=== PATIENT | male | born 1950 | race Caucasian/White ===

== ENCOUNTER 2023-06-24 10:23 | Outpatient (OUT) | payer MEDICARE, OTHER, SELFPAY ==
[2023-06-24 11:25] LABS: Alanine Aminotransferase 30 U/L (16-63); Albumin Globulin Ratio 1.1; Albumin Level 3.9 g/dL (3.4-5.0); Alkaline Phosphatase 59 U/L (46-116); Anion Gap 12.7; Aspartate Amino Transferase 19 U/L (15-37); BUN Creatinine Ratio 19.1; Bilirubin Total 0.6 mg/dL (0.2-1.0); Calcium 8.8 mg/dL (8.5-10.1); Chloride 103 mmol/L (98-107); Chol HDL Ratio 3.4; Cholesterol 160 mg/dL (<=200); Estimated GFR (African America >60 (>=60); Estimated GFR (Non-African Ame >60 (>=60); Globulin 3.4 g/dL; Glucose 176 mg/dL (74-106); HDL Cholesterol 47 mg/dL (40-60); LDL Cholesterol Calculated 102.6 mg/dL; Potassium 4.7 mmol/L (3.5-5.1); Sodium 141 mmol/L (136-145); Total Protein 7.3 g/dL (6.4-8.2); Triglycerides 52 mg/dL (<=150); VLDL CHOLESTEROL 10.4 mg/dL
== END 2023-06-24 10:24 | disposition home or self-care (01) ==
LOC: LAB 10:28
PROVIDERS: PCP Family Medicine; Visit Provider Family Medicine
DX: E78.2 Mixed hyperlipidemia (principal)
CPT/HCPCS: 36415; 80053; 80061

== ENCOUNTER 2023-07-21 20:53 | Outpatient (OUT) | payer MEDICARE, OTHER, SELFPAY | END 2023-07-21 20:54 | disposition home or self-care (01) | LOC: SLEEP 20:53 | PROVIDERS: PCP Family Medicine; Visit Provider Family Medicine | DX: G47.33 Obstructive sleep apnea (adult) (pediatric) (principal) | CPT/HCPCS: 95810 ==

== ENCOUNTER 2023-08-05 19:48 | Outpatient (OUT) | payer MEDICARE, OTHER, SELFPAY | END 2023-08-05 19:49 | disposition home or self-care (01) | LOC: SLEEP 19:49 | PROVIDERS: PCP Family Medicine; Visit Provider Family Medicine | DX: G47.33 Obstructive sleep apnea (adult) (pediatric) (principal) | CPT/HCPCS: 95811 ==

== ENCOUNTER 2024-01-26 10:07 | Outpatient (OUT) | payer MEDICARE, OTHER, SELFPAY ==
[2024-01-26 10:44] LABS: Estimated Average Glucose 174 mg/dL; Glycohemoglobin A1C 7.7 % (4.5-6.2)
[2024-01-26 11:25] LABS: Prostate Specific Antigen Scrn 0.53 ng/mL (<=4.00)
== END 2024-01-26 10:08 | disposition home or self-care (01) ==
LOC: LAB 10:08
PROVIDERS: PCP Family Medicine; Visit Provider Family Medicine
DX: Z12.5 Encounter for screening for malignant neoplasm of prostate (principal); E11.65 Type 2 diabetes mellitus with hyperglycemia
CPT/HCPCS: 36415; 83036; G0103

== ENCOUNTER 2024-05-27 10:28 | Outpatient (OUT) | payer MEDICARE, OTHER, SELFPAY ==
--- OUTSIDE RECORDS SUMMARY | 2024-05-27 10:33 | XMS_ITS | CCD ---
Author Organization [facility] Care Team Providers Care Commercial Loan Manager Name Role Phone DAVID CASTILLO Admitting Unavailable DAVID CASTILLO Attending Unavailable PATELLORRAINE Primary Care Unavailable PATEL ., DR LORRAINE Ervin Admitting Unavailable PATEL ., DR LORRAINE Ervin Attending Unavailable PATEL ., DR LORRAINE Ervin Primary Care Unavailable PATEL ., DR LORRAINE Ervin Consulting Unavailable PATEL ., DR LORRAINE Ervin Primary Care Unavailable STEPHEN, DAVID Admitting Unavailable STEPHEN, DAVID Attending Unavailable DAVID MITCHELL Consulting Unavailable ESTER MCCRAY Consulting Unavailable PATEL ., DR LORRAINE Ervin Admitting Unavailable PATEL ., DR LORRAINE Ervin Attending Unavailable PATEL ., DR LORRAINE Ervin Primary Care Unavailable PATEL ., DR LORRAINE Ervin Admitting Unavailable PATEL ., DR LORRAINE Ervin Attending Unavailable PATEL ., DR LORRAINE Ervin Primary Care Unavailable PATEL ., DR LORRAINE Ervin Consulting Unavailable PATEL ., DR LORRAINE Ervin Admitting Unavailable PATEL ., DR LORRAINE Ervin Attending Unavailable PATEL ., DR LORRAINE Ervin Primary Care Unavailable PATEL ., DR LORRAINE Ervin Consulting Unavailable Sandra Archer Unavailable MARIA ANTONIA SHARP Attending Unavailable Medications Current Medications Medication Drug Class(es) Dates Sig (Normalized) Sig (Original) Aspir-81 (12 sources) Aspir-81 Active aspirin 81 mg oral tablet (1 source) Platelet Aggregation Inhibitor, Nonsteroidal Anti-inflammatory Drug Start: 01-15-2024 take 81 mg by mouth once daily Aspirin Active 81 MG PO Daily January 15, 2024 1:00am atenolol 100 mg oral tablet (14 sources) beta-Adrenergic Wander Start: 01-06-2024 End: 01-06-2024 take 100 mg by mouth once daily Atenolol Active 100 MG PO Daily January 06, 2024 1:56pm take 1 tablet by joseph th every twenty-four hours Atenolol 100 MG 1 tablet Orally Once a day for 90 days Active fluticasone propionate 0.05 mg/actuat metered dose nasal spray (13 sources) Corticosteroid Start: 01-15-2024 Fluticasone Pr opionate Active 1 SPRAY INTRANASAL Daily January 15, 2024 1:00am take 1 spray(s) nasal route once daily Fluticasone Propionate 50 MCG/ACT 1 spray in each nostril Nasally Once a day for 90 days Active take 1 spray(s) nasal route once daily Fluticasone Propionate 50 MCG/ACT 1 spray in each nostril Nasally Once a day for 90 days Active FreeStyle Michael 2 [place] - (12 sources) Start: 03-31-2023 FreeStyle Libr e 2 [place] - as directed March, Active FreeStyle Michael 2 Sensor - (5 sources) FreeStyle Michael 2 Sensor - USE DIRECTED for 28 Active FreeStyle Michael Sensor (7 sources) Start: 03-31-2023 FreeStyle Libr e Sensor March, Active glipiZIDE 5 mg oral tablet (14 sources) Sulfonylurea Start: 01-26-2024 take 5 mg by mouth twice daily Glipizide Active 5 MG PO Twice daily January 26, 2024 9:33am Start: 01-15-2024 End: 01-26-2024 take 5 mg by mouth once daily Glipizide Discontinued 5 MG PO Daily January 15, 2024 1:00am January 26, 2024 9:35am take 1 tablet by joseph once daily 30 minutes before breakfast glipiZIDE 5 MG 1 tablet 30 minutes before breakfast Oral Once a day Active take 2 tablets by mo [facility] every twenty-four hours glipiZIDE 5 MG 2 tablets Oral Once a day for 90 days Active metFORMIN hydrochloride 500 mg oral tablet (13 sources) Biguanide Start: 01-15-2024 take 1000 mg by mouth twice daily Metformin Active 1000 MG PO Twice daily January 15, 2024 1:00am take 2 tablets by mo [facility] every twelve hours metFORMIN HCl 500 MG 2 tablets Oral twic e a day for 90 days Active Multi Complete - (12 sources) Multi Complete - as directed Orally Active Multivitamin (Daily Multi-Vitamin) tablet (1 source) Start: 01-15-2024 take 1 tablet by mouth once daily Multivitamin (Daily Multi-Vitamin) tablet Active 1 TAB PO Daily January 15, 2024 1:00am niacin 500 mg oral tablet (13 sources) Nicotinic Acid Start: 01-15-2024 take 500 mg by mouth twice daily Niacin Active 500 MG PO Twice daily January 15, 2024 1:00am take 1 tablet by mouth every twe lve hours Niacin 500 MG 1 tablet with food Orally twice a day Active take 1 tablet by joseph th every twenty-four hours Niacin 500 MG 1 tablet with food Orally Once a day Active pravastatin sodium 40 mg oral tablet (14 sources) HMG-CoA Reductase Inhibitor Start: 01-06-2024 End: 01-06-2024 take 40 mg by mouth once daily Pravastatin Active 40 MG PO Daily January 06, 2024 1:56pm take 1 tablet by joseph th every twenty-four hours Pravastatin Sodium 40 MG 1 tablet Oral once a day for 90 days Active sertraline 25 mg oral tablet (13 sources) Serotonin Reuptake Inhibitor Start: 01-15-2024 take 25 mg by mouth once daily Sertraline Active 25 MG PO Daily January 15, 2024 1:00am take 1 tablet by joseph th once daily as needed Sertraline HCl 25 MG 1 tablet Orally Onc e a day prn Active Completed/Discontinued Medications Medication Drug Class(es) Dates Sig (Normalized) Sig (Original) amoxicillin 875 mg / clavulanate 125 mg oral tablet (1 source) Penicillin-class Antibacterial Start: 01-16-2024 End: 01-26-2024 take 1 tablet by mouth twice daily Amoxicillin-Pot Clavulanate Discontinued 1 TAB PO Twice daily 14 January 16, 2024 1:00am January 26, 2024 9:32am Problems Active Problems Problem Classification Problem Date Documented Da te Episodic/Chronic Diabetes mellitus with complications (20 sources) Type 2 diabetes mellitus with unspecified complications; Translations: [Type 2 diabetes mellitus] Onset: 12-29-2022 Chronic Disorders of lipid metabolism (14 sources) Mixed hyperlipidemia; Translations: [Mixed hyperlipidemia] Chronic E Codes: Fall (1 source) Other fall on same level, initial encounter; Translations: [OTHER FALL ON SAME LEVEL INITIAL] Onset: 03-06-2023 Episodic Essential hypertension (18 sources) Essential (primary) hypertension; Translations: [Essential hypertension] Onset: 08-12-2022 Chronic Immunizations and screening for infectious disease (2 sources) Encounter for immunization; Translations: [ENCOUNTER FOR IMMUNIZATION] Onset: 03-06-2023 Episodic Malaise and fatigue (4 sources) Other fatigue; Translations: [OTHER FATIGUE] Onset: 12-24-2022 Episodic Melanomas of skin (12 sources) H/O Malignant melanoma; Translations: [Personal history of malignant melanoma of skin] Episodic Other aftercare (1 source) nursing home (current) use of aspirin; Translations: [ALF CURRENT USE OF ASPIRIN] Onset: 03-06-2023 Episodic Other aftercare (1 source) 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; Translations: [ALF USE ORAL HYPOGLYCEMIC DX] Onset: 03-06-2023 Episodic Other aftercare (1 source) Other halfway (current) drug therapy; Translations: [OTH ARCHITECTURE INSTRUCTOR CURRENT DRUG THERAPY] Onset: 03-06-2023 Episodic Other ear and sense organ disorders (11 sources) Mixed conductive and sensorineural hearing loss, bilateral; Translations: [Mixed conductive and sensorineural hearing loss, bilateral] 01-15-2024 Chronic Other ear and sense organ disorders (2 sources) Mixed conductive and sensorineural hearing loss, bilateral Chronic Other injuries and conditions due to external causes (4 sources) Unspecified injury of head, initial encounter; Translations: [UNSPECIFIED INJURY HEAD INITIAL ENC] Onset: 03-04-2023 Episodic Other screening for suspected conditions (not mental disorders or infectious disease) (2 sources) Patient encounter status; Translations: [Encounter for screening for malignant neoplasm of prostate] 01-26-2024 Episodic Other upper respiratory infections (2 sources) Maxillary sinusitis; Translations: [Chronic maxillary sinusitis] 01-16-2024 Chronic Peripheral and visceral atherosclerosis (5 sources) Peripheral vascular disease, unspecified; Translations: [PERIPHERAL VASCULAR DISEASE UNS] Onset: 12-19-2022 Chronic Residual codes; unclassified (10 sources) Sleep apnea; Translations: [Sleep apnea, unspecified] Chronic Residual codes; unclassified (2 sources) Sleep apnea, unspecified Chronic Residual codes; unclassified (7 sources) Obstructive sleep apnea syndrome; Translations: [Obstructive sleep apnea (adult) (pediatric)] 01-15-2024 Chronic Residual codes; unclassified (1 source) Obstructive sleep apnea (adult) (pediatric) Chronic Sprains and strains (1 source) Strain of muscle, fascia and tendon at neck level, initial encounter; Translations: [STRN MUSC FASC TENDON NECK LEVL INT] Onset: 03-06-2023 Episodic Superficial injury; contusion (1 source) Contusion of scalp, initial encounter; Translations: [CONTUSION SCALP INITIAL ENCOUNTER] Onset: 03-06-2023 Episodic Unclassified (2 sources) RETINAL DETACHMENT LEFT EYE; Translations: [RETINAL DETACHMENT LEFT EYE] Onset: 12-09-2018 Past or Other Problems Problem Classification Problem Date Documented Da te Episodic/Chronic Other male genital disorders (4 sources) Disorder of prostate, unspecified; Translations: [DISORDER OF PROSTATE UNSPECIFIED] Onset: 08-09-2022 Episodic Results Test Name Value Interpretation Reference Range Facility No Panel InformationOrdered By: Renuka Irizarry on 01-16-2024 Quick Strep (POC) [facility] CT CSPINE WO CONon 3 CT CSPINE WO CON INDICATION: 72 years old; Male. Closed head trauma. TECHNIQUE: CT Head (ax/cor/sag reformats). Ionizing radiation dose reduced via iterative reconstruction/FBP blend and body size kV/mA adjustment. Comparison: None FINDINGS: POSTOPERATIVE CHANGES: None. BRAIN PARENCHYMA: No focal lesions. No mass effect. No midline shift or herniation. No intraparenchymal or extra-axial hemorrhage. Patchy low-density in the white matter without mass effect consistent with small vessel ischemic change. VENTRICLES/EXTRA-AXI AL SPACES: Within normal limits for patient's age. SINUSES/MASTOIDS: Mucoperiosteal thickening in the ethmoid sinuses and left sphenoid sinus. No fluid levels. Mastoid air cells are clear. MSK: No displaced or depressed calvarial fracture is noted. OTHER: No hyperdense intraluminal thrombus is seen. Vascular calcification is noted consistent with atherosclerotic change. There is hyperdense material within the right globe with findings additional consistent with retinal banding. TECHNIQUE: CT imaging of the cervical spine was performed. IV contrast: None. Dose reduction techniques were achieved by using automated exposure control and/or adjustment of mA and/or kV according to patient size and/or use of iterative reconstruction technique. COMPARISON: None available. FINDINGS: POSTOPERATIVE CHANGES: None. ALIGNMENT: There is nonspecific straightening of the normal cervical curve. COMPRESSION FRACTURES: Generalized bony demineralization is appreciated. No fracture or vertebral body collapse is seen. No bone displacement is seen. No asymmetric widening of the facets is noted. PREVERTEBRAL SOFT TISSUES: Normal. CRANIOCERVICAL JUNCTION: There is a normal relationship of the occipital condyles, lateral masses of C1, and articular surfaces of C2. The base of the dens and body of C2 are intact. There is narrowing of the predental space associated with sclerosis and spurring consistent with degenerative change. There is ligamentous calcification as well as osteophyte formation arising from the dens and the anterior arch of C1. Thickening of the transverse ligament is seen. There is dense calcification inferior to the anterior arch of C1 consistent with calcification or ossification at the insertion of the longus colli tendon. POSTERIOR FOSSA: Cerebellar tonsils are above the foramen magnum. Disc levels: C2-C3: Disc bulging and endplate osteophyte formation is seen. Central canal and neural foramina are patent. C3-C4: Disc bulging and endplate osteophyte formation is seen with a central disc osteophyte complex. There is uncovertebral joint degeneration and facet degeneration which is worse on the left than the right. There is mild right-sided and moderate to severe left-sided foraminal stenosis. C4-C5: Disc bulging and endplate osteophyte formation is seen. Central canal and neural foramina are patent. C5-C6: Disc space narrowing, disc bulging, endplate osteophyte formation, vertebral endplate degeneration, uncovertebral joint degeneration, facet degeneration, and bulky bridging anterior osteophytes. Cystic endplate degenerative changes are noted. Moderate central canal stenosis. Mild right and moderate left foraminal stenosis. C6-C7: Disc space narrowing, disc bulging, endplate osteophyte formation, with chronic Schmorl's node formation, bulky bridging anterior osteophytes, facet degeneration, and uncovertebral joint degeneration worse on the left. Mild central canal stenosis. Mild to moderate left foraminal stenosis. C7-T1: The morning artifacts. Bony canal is patent. UPPER THORACIC SPINE: Beam hardening artifacts. Bony canal is patent. OTHER: No thyroid nodule or adenopathy. Vascular calcifications are noted. IMPRESSION: 1. No acute intracranial abnormality. No hemorrhage or mass effect. 2. Small vessel ischemic changes. 3. Sinus thickening. 4. Vascular calcification. 5. Hyperdense material within the right globe associated with retinal banding. 6. Multilevel cervical spondylosis. No acute fracture. Please see the detailed discussion of the individual levels in the body of this report. Electronically authenticated by: ESTER MCCRAY Date: 2023-03-05 01:00 Normal [facility] CBC AUTO DIFFon 12-24-2022 BASO # 0.1 103/ul Normal 0.0-0.1 [facility] Comment on above: Performed By: #### C BC #### [facility] [address] [address] [address] Day Davis Basophils/100 WBC (Bld) 0.9 % Normal 0.2-2.0 [facility] Comment on above: Performed By: #### C BC #### [facility] [address] [address] [address] Day Davis EO # 0.2 103/ul Normal 0.0-0.7 [facility] Comment on above: Performed By: #### C BC #### [facility] [address] [place] [address] Dr. Day Davis Eosinophils/100 WBC (Bld) 2.7 % Normal 0.9-7.0 [facility] Comment on above: Performed By: #### C BC #### [facility] [address] [place] [address] Dr. Day Davis Erythrocyte distribution width (RBC) [Ratio] 12.5 % Normal 11.0-15.0 [facility] Comment on above: Performed By: #### C BC #### [facility] [address] [place] [address] Dr. Day Davis Hematocrit (Bld) [Volume fraction] 40.7 % Critically low 42.0-54.0 [facility] Comment on above: Performed By: #### C BC #### [facility] [address] [address] [address] Day Davis Hemoglobin (Bld) [Mass/Vol] 13.9 g/dL Critically low 14.0-18.0 [facility] Comment on above: Performed By: #### C BC #### [facility] [address] [place] [address] Dr. Day Davis IG # 0.02 10e3/ul Normal 0.00-0.03 [facility] Comment on above: Performed By: #### C BC #### [facility] [address] [place] [address] Dr. Day Davis IG % 0.3 % Normal 0.0-0.5 [facility] Comment on above: Performed By: #### C BC #### [facility] [address] [place] [address] Dr. Day Davis LYMPH # 1.8 103/ul Normal 1.2-3.8 [facility] Comment on above: Performed By: #### C BC #### [facility] [address] [place] [address] Dr. Day Davis Lymphocytes/100 WBC (Bld) 26.3 % Normal 20.5-60.0 [facility] Comment on above: Performed By: #### C BC #### [facility] [address] [place] [address] Dr. Day Davis MANUAL DIFF REQ NO Normal [facility] Comment on above: Performed By: #### C BC #### [facility] [address] [place] [address] Dr. Day Davis MCH (RBC) [Entitic mass] 30.4 pg Normal 25.9-34.0 [facility] Comment on above: Performed By: #### C BC #### [facility] [address] [place] [address] Dr. Day Davis MCHC (RBC) [Mass/Vol] 34.2 g/dL Normal 29.9-35.2 [facility] Comment on above: Performed By: #### C BC #### [facility] [address] [place] [address] Dr. Day Davis MCV (RBC) [Entitic vol] 89.1 fL Normal 80.0-94.0 [facility] Comment on above: Performed By: #### C BC #### [facility] [address] [place] [address] Dr. Day Davis MONO # 0.5 103/ul Normal 0.3-0.8 [facility] Comment on above: Performed By: #### C BC #### [facility] [address] [address] [address] Day Davis Monocytes/100 WBC (Bld) 6.8 % Normal 1.7-12.0 [facility] Comment on above: Performed By: #### C BC #### [facility] [address] [address] [address] Day Davis NEUT # 4.4 103/ul Normal 1.4-6.5 [facility] Comment on above: Performed By: #### C BC #### [facility] [address] [address] [address] Day Davis Neutrophils/100 WBC (Bld) 63.0 % Normal 43.0-75.0 [facility] Comment on above: Performed By: #### C BC #### [facility] [address] [place] [address] Dr. aDy Davis Platelet mean volume (Bld) [Entitic vol] 9.2 fL Critically low 9.5-13.5 [facility] Comment on above: Performed By: #### C BC #### [facility] [address] [place] [address] Dr. Day Davis PLT 226 103/ul Normal 150-450 [facility] Comment on above: Performed By: #### C BC #### [facility] [address] [place] [address] Dr. Day Davis RBC 4.57 106/ul Critically low 4.70-6.10 [facility] Comment on above: Performed By: #### C BC #### [facility] [address] [place] [address] Dr. Day Davis WBC 7.0 103/ul Normal 4.0-11.0 [facility] Comment on above: Performed By: #### C BC #### [facility] [address] [place] [address] Dr. Day Davis GLYCOHEMOGLOBIN A1Con 2022 ADA RECOMMENDATION SEE BELOW Normal [facility] Comment on above: Result Comment: ADA RECOMMENDED LIMIT 4.0 - 6.0 ADA THERAPEUTIC TARGET < 7.0 ACTION SUGGESTED > 7.0 Performed By: #### A 1C #### [facility] [address] [place] [address] Dr. Day Davis Glucose [Mass/Vol] 209 mg/dL Normal [facility] Comment on above: Performed By: #### A 1C #### [facility] [address] [place] [address] Dr. Day Davis HbA1c (Bld) [Mass fraction] 8.9 % Critically high 4.5-6.2 [facility] Comment on above: Performed By: #### A 1C #### [facility] [address] [place] [address] Dr. Day Davis CBC AUTO DIFFon 08-09-2022 BASO # 0.1 103/ul Normal 0.0-0.1 [facility] Comment on above: Performed By: #### C BC #### [facility] [address] [place] [address] Dr. Day Davis Basophils/100 WBC (Bld) 0.7 % Normal 0.2-2.0 [facility] Comment on above: Performed By: #### C BC #### [facility] [address] [place] [address] Dr. Day Davis EO # 0.2 103/ul Normal 0.0-0.7 [facility] Comment on above: Performed By: #### C BC #### [facility] [address] [place] [address] Dr. Day Davis Eosinophils/100 WBC (Bld) 3.4 % Normal 0.9-7.0 [facility] Comment on above: Performed By: #### C BC #### [facility] [address] [place] [address] Dr. Day Davis Erythrocyte distribution width (RBC) [Ratio] 12.1 % Normal 11.0-15.0 [facility] Comment on above: Performed By: #### C BC #### [facility] [address] [place] [address] Dr. Day Davis Hematocrit (Bld) [Volume fraction] 39.5 % Critically low 42.0-54.0 [facility] Comment on above: Performed By: #### C BC #### [facility] [address] [address] [address] Day Davis Hemoglobin (Bld) [Mass/Vol] 13.3 g/dL Critically low 14.0-18.0 [facility] Comment on above: Performed By: #### C BC #### [facility] [address] [address] [address] Day Davis IG # 0.01 10e3/ul Normal 0.00-0.03 [facility] Comment on above: Performed By: #### C BC #### [facility] [address] [place] [address] Dr. Day Davis IG % 0.1 % Normal 0.0-0.5 [facility] Comment on above: Performed By: #### C BC #### [facility] [address] [place] [address] Dr. Day Davis LYMPH # 1.8 103/ul Normal 1.2-3.8 [facility] Comment on above: Performed By: #### C BC #### [facility] [address] [place] [address] Dr. Day Davis Lymphocytes/100 WBC (Bld) 25.2 % Normal 20.5-60.0 [facility] Comment on above: Performed By: #### C BC #### [facility] [address] [place] [address] Dr. Day Davis MANUAL DIFF REQ NO Normal [facility] Comment on above: Performed By: #### C BC #### [facility] [address] [place] [address] Dr. Day Davis MCH (RBC) [Entitic mass] 30.4 pg Normal 25.9-34.0 [facility] Comment on above: Performed By: #### C BC #### [facility] [address] [place] [address] Dr. Day Davis MCHC (RBC) [Mass/Vol] 33.7 g/dL Normal 29.9-35.2 [facility] Comment on above: Performed By: #### C BC #### [facility] [address] [address] [address] Day Davis MCV (RBC) [Entitic vol] 90.2 fL Normal 80.0-94.0 [facility] Comment on above: Performed By: #### C BC #### [facility] [address] [address] [address] Day Davis MONO # 0.7 103/ul Normal 0.3-0.8 [facility] Comment on above: Performed By: #### C BC #### [facility] [address] [address] [address] Day Davis Monocytes/100 WBC (Bld) 9.8 % Normal 1.7-12.0 [facility] Comment on above: Performed By: #### C BC #### [facility] [address] [place] [address] Dr. Day Davis NEUT # 4.3 103/ul Normal 1.4-6.5 [facility] Comment on above: Performed By: #### C BC #### [facility] [address] [place] [address] Dr. Day Davis Neutrophils/100 WBC (Bld) 60.8 % Normal 43.0-75.0 [facility] Comment on above: Performed By: #### C BC #### [facility] [address] [place] [address] Dr. Day Davis Platelet mean volume (Bld) [Entitic vol] 8.8 fL Critically low 9.5-13.5 [facility] Comment on above: Performed By: #### C BC #### [facility] [address] [place] [address] Dr. Day Davis PLT 214 103/ul Normal 150-450 [facility] Comment on above: Performed By: #### C BC #### [facility] [address] [address] [address] Day Davis RBC 4.38 106/ul Critically low 4.70-6.10 [facility] Comment on above: Performed By: #### C BC #### [facility] [address] [address] [address] Day Davis WBC 7.0 103/ul Normal 4.0-11.0 [facility] Comment on above: Performed By: #### C BC #### [facility] [address] [place] [address] Dr. Day Davis GLYCOHEMOGLOBIN A1Con 2021 ADA RECOMMENDATION SEE BELOW Normal [facility] [facility] Comment on above: Result Comment: ADA RECOMMENDED LIMIT 4.0 - 6.0 ADA THERAPEUTIC TARGET < 7.0 ACTION SUGGESTED > 7.0 Performed By: #### A 1C #### [facility] [address] [place] [address] Dr. Day Davis Glucose [Mass/Vol] 177 mg/dL Normal [facility] Comment on above: Performed By: #### A 1C #### [facility] [address] [place] [address] Dr. Day Davis HbA1c (Bld) [Mass fraction] 7.8 % Critically high 4.5-6.2 [facility] Comment on above: Performed By: #### A 1C #### [facility] [address] [place] [address] Dr. Day Davis PROF 14(COMP METB)on 022 Albumin [Mass/Vol] 4.0 g/dL Normal 3.4-5.0 [facility] Comment on above: Performed By: #### C MP #### [facility] [address] [place] [address] Dr. Day Davis Albumin/Globulin [Mass ratio] 1.2 {ratio} Normal [facility] Comment on above: Performed By: #### C MP #### [facility] [address] [place] [address] Dr. Day Davis ALP [Catalytic activity/Vol] 70 U/L Normal 46-116 [facility] Comment on above: Performed By: #### C MP #### [facility] [address] [place] [address] Dr. Day Davis ALT [Catalytic activity/Vol] 37 U/L Normal 16-63 [facility] Comment on above: Performed By: #### C MP #### [facility] [address] [address] [address] Day Davis Anion gap [Moles/Vol] 11.4 mmol/L Normal Th [facility] Comment on above: Performed By: #### C MP #### [facility] [address] [address] [address] Day Davis AST [Catalytic activity/Vol] 18 U/L Normal 15-37 [facility] Comment on above: Performed By: #### C MP #### [facility] [address] [address] [address] Day Davis Bilirubin [Mass/Vol] 0.4 mg/dL Normal 0.2-1.0 [facility] Comment on above: Performed By: #### C MP #### [facility] [address] [address] [address] Day Davis Calcium [Mass/Vol] 8.7 mg/dL Normal 8.5-10.1 [facility] Comment on above: Performed By: #### C MP #### [facility] [address] [address] [address] Day Davis Chloride [Moles/Vol] 104 mmol/L Normal 98-107 [facility] Comment on above: Performed By: #### C MP #### [facility] [address] [address] [address] Day Davis CO2 [Moles/Vol] 26.8 mmol/L Normal 21.0-32.0 [facility] Comment on above: Performed By: #### C MP #### [facility] [address] [address] [address] Day Davis Creatinine [Mass/Vol] 0.94 mg/dL Normal 0.70-1.30 [facility] Comment on above: Performed By: #### C MP #### [facility] [address] [address] [address] Day Davis EGFR-AF [facility] LUCIAN >60 Normal >=60 [facility] Comment on above: Performed By: #### C MP #### [facility] [address] [place] [address] Dr. Day Davis EGFR-NON AF [facility]CI[facility] >60 Normal >=60 [facility] Comment on above: Performed By: #### C MP #### [facility] [address] [address] [address] Day Davis Globulin (S) [Mass/Vol] 3.3 g/dL Normal [facility] Comment on above: Performed By: #### C MP #### [facility] [address] [address] [address] Day Davis Glucose [Mass/Vol] 183 mg/dL Critically high 74-106 [facility] Comment on above: Performed By: #### C MP #### [facility] [address] [place] [address] Dr. Day Davis Potassium [Moles/Vol] 4.2 mmol/L Normal 3.5-5.1 [facility] Comment on above: Performed By: #### C MP #### [facility] [address] [place] [address] Dr. Day Davis Protein [Mass/Vol] 7.3 g/dL Normal 6.4-8.2 [facility] Comment on above: Performed By: #### C MP #### [facility] [address] [place] [address] Dr. Day Davis Sodium [Moles/Vol] 138 mmol/L Normal 136-145 [facility] Comment on above: Performed By: #### C MP #### [facility] [address] [place] [address] Dr. Day Davis Urea nitrogen [Mass/Vol] 21.0 mg/dL Critically high 7.0-18.0 [facility] Comment on above: Performed By: #### C MP #### [facility] [address] [place] [address] Dr. Day Davis Urea nitrogen/Creatinine [Mass ratio] 22.3 mg/mg Normal [facility] Comment on above: Performed By: #### C MP #### [facility] [address] [place] [address] Dr. Day Davis OPERATIVE REPORTon 9 OPERATIVE REPORT [address] [address] OPERATIVE REPORT PATIENT NAME: HANSEL CARABALLO : 1950 MED REC NO: [id number] ROOM: ACCOUNT NO: [id number] ADMIT DATE: 12/09/2018 PROVIDER: David Castillo DATE OF PROCEDURE: 12/09/2018 PREOPERATIVE DIAGNOSES: 1. Macula-off rhegmatogenous retinal detachment, left eye. 2. PCIOL, left eye. POSTOPERATIVE DIAGNOSES: 1. Macula-off rhegmatogenous retinal detachment, left eye. 2. PCIOL, left eye. PROCEDURES: Pars plana vitrectomy with repair of retinal detachment, left eye. SURGEON: David Castillo MD ANESTHESIA: Local with monitored anesthesia care. COMPLICATIONS: None. INDICATIONS FOR PROCEDURE: The patient is a pleasant 68-year-old man who presents with a chief complaint of painless decreased vision in his left eye. He was diagnosed with a macula-off retinal detachment. Risks, benefits, and alternatives to repair were discussed. The risks discussed included, but were not limited to, risk of infection, risk of hemorrhage, risk of recurrent or persistent retinal detachment, risk of loss of vision, risk of loss of the eye, risk of loss of life. Additionally, the guarded visual prognosis was explained given the macula-off status of the patient's detachment at the time of presentation. The patient indicated he understood the risks and prognosis and wished to proceed. PROCEDURE NOTE: After informed consent for the planned procedure was obtained, the patient was identified in the preoperative holding area and transported to the operative suite, where appropriate cardiopulmonary monitoring was established. The patient's left eye was blocked with a 50:50 mixture of 2% lidocaine and 0.75% Marcaine. The eye was prepped and draped in the usual sterile fashion for ophthalmic surgery. A lid speculum was placed in the eye. 23-gauge trocars were introduced 3 mm posterior to the limbus with conjunctival displacement in a biplanar fashion in the inferotemporal, superotemporal, and superonasal quadrants. Infusion was inserted through the inferotemporal cannula and visualized through the pupillary axis and turned on. Vitrector and light pipe were introduced, used to conduct a total core and peripheral vitrectomy to the limits of visualization under wide-field biomicroscopy. A superior retinal detachment with a superonasal break was noted with the macula detached. Scleral depression was utilized to shave the vitreous down to the vitreous base and conduct a complete vitrectomy. Following vitrectomy, the patient's [place] break was marked with intraocular diathermy. Complete fluid-air exchange was carried out, utilizing the patient's break to drain all subretinal fluid. Endolaser was introduced, used to apply 360 around the retinal break as well as 360 degrees along the vitreous base without complications. Any residual fluid was removed. 16% C3F8 gas was exchanged. The trocars were removed. The wounds were examined meticulously for leaks, none were noted. The eye was palpated, noted to be within a normal pressure range. Ancef was instilled. Lid speculum was removed. The eye was cleaned. Drops and ointment were instilled. The eye was patched and shielded. DISPOSITION: The patient was transferred to the PACU without complications. He was given instructions, prescription of medications, and a followup the next day with [facility]. DAVID CASTILLO [id number] Doc#: [id number] CC: Normal [facility] Vital Signs Date Time Vital Sign Value Performing Clinician Facility 01-26-2024 09:27-0400 Body height 176.53 cm [facility] 01-26-2024 09:27-0400 Body mass index (BMI) [Ratio] 30.2 kg/m2 [facility] 01-26-2024 09:27-0400 Body weight 94.4 kg [facility] 01-26-2024 09:27-0400 Diastolic blood pressure 75 mm[Hg] [facility] 01-26-2024 09:27-0400 Heart rate 71 /min [facility] 01-26-2024 09:27-0400 Systolic blood pressure 144 mm[Hg] [facility] 01-16-2024 08:51-0500 Body height 176.53 cm [facility] 01-16-2024 08:51-0500 Body mass index (BMI) [Ratio] 29.9 kg/m2 [facility] 01-16-2024 08:51-0500 Body weight 93.44 kg [facility] 01-16-2024 08:51-0500 Diastolic blood pressure 72 mm[Hg] [facility] 01-16-2024 08:51-0500 Heart rate 80 /min [facility] 01-16-2024 08:51-0500 SaO2% (BldA) [Mass fraction] 98 % [facility] 01-16-2024 08:51-0500 Systolic blood pressure 138 mm[Hg] [facility] 09-24-2023 09:30-0500 Body height 176.53 cm Sandra Archer Other [facility] Other 09-24-2023 09:30-0500 Body mass index (BMI) [Ratio] 30.13 kg/m2 Sandra Archer Other [facility] Other 09-24-2023 09:30-0500 Body weight 93.9 kg Sandra Archer Other [facility] Other 09-24-2023 09:30-0500 Diastolic blood pressure 68 mm[Hg] Sandra Archer Other [facility] Other 09-24-2023 09:30-0500 SaO2% (BldA) [Mass fraction] 97 % Sandra Archer Other [facility] Other 09-24-2023 09:30-0500 Systolic blood pressure 138 mm[Hg] Sandra Archer Other [facility] Other 08-07-2023 10:00-0400 Body height 176.53 cm Sandra Archer Other [facility] Other 08-07-2023 10:00-0400 Body mass index (BMI) [Ratio] 28.67 kg/m2 Sandra Archer Other [facility] Other 08-07-2023 10:00-0400 Body weight 89.36 kg Sandra Archer Other [facility] Other 08-07-2023 10:00-0400 Diastolic blood pressure 65 mm[Hg] Sandra Archer Other [facility] Other 08-07-2023 10:00-0400 Systolic blood pressure 108 mm[Hg] Sandra Archer Other [facility] Other 06-24-2023 09:30-0400 Body height 176.53 cm Sandra Archer Other [facility] Other 06-24-2023 09:30-0400 Body mass index (BMI) [Ratio] 28.38 kg/m2 Sandra Archer Other [facility] Other 06-24-2023 09:30-0400 Body weight 88.45 kg Sandra Archer Other [facility] Other 06-24-2023 09:30-0400 Diastolic blood pressure 73 mm[Hg] Sandra Archer Other [facility] Other 06-24-2023 09:30-0400 Systolic blood pressure 143 mm[Hg] Sandra Arhcer Other [facility] Other Encounters Encounter Date Encounter Type Care Provider Facility Start: 01-26-2024 End: 01-26-2024 ambulatory [facility] Work Phone: Start: 01-26-2024 End: 01-26-2024 Patient encounter procedure [facility] Work Phone: Start: 01-16-2024 End: 01-16-2024 Patient encounter procedure [facility] Work Phone: Start: 01-06-2024 Non-patient / Non-visit [facility] Work Phone: Start: 11-04-2023 End: 11-04-2023 ambulatory Sandra Archer Other [facility] Other Start: 11-04-2023 Encounter by cesar Archer [facility] Start: 10-30-2023 End: 10-30-2023 ambulatory MARIA ANTONIA SHARP Not Available Start: 10-01-2023 End: 10-01-2023 ambulatory Sandra Archer Other [facility] Other Start: 10-01-2023 Telephone encounter Sandra Archer [facility] Start: 09-24-2023 End: 09-24-2023 ambulatory Sandra Archer Other [facility] Other Start: 09-24-2023 Patient encounter procedure Sandra Suzi [facility] Start: 08-07-2023 End: 08-07-2023 ambulatory Sandra Archer Other [facility] Other Start: 08-07-2023 Office outpatient vi sit 15 minutes Sandra Archer [facility] Start: 06-26-2023 End: 06-26-2023 ambulatory Sandra Archer Other [facility] Other Start: 06-26-2023 Telephone encounter Sandra Archer [employer] Start: 06-24-2023 End: 06-24-2023 ambulatory Sandra Archer Other [facility] Other Start: 06-24-2023 Office outpatient vi sit 25 minutes Sandra Archer [facility] Start: 06-24-2023 Telephone encounter Sandra Suzi [facility] Start: 06-23-2023 End: 06-23-2023 ambulatory Sandra Archer Other [facility] Other Start: 06-23-2023 Encounter by compute huber vipin Sandra Suzi [facility] Start: 03-04-2023 End: 03-05-[address] LORRAINE PATEL . Facility:[facility] Start: 12-24-2022 End: 12-25-[address] LORRAINE PATEL . Facility:[facility] Start: 12-19-2022 End: 12-20-[address] LORRAINE PATEL . Facility:[facility] Start: 08-09-2022 End: 08-10-[address] LORRAINE PATEL . Facility:[facility] Start: 12-09-2018 End: 12-09-2018 Patient encounter procedure DAVID CASTILLO [facility] Procedures Date Procedure Procedure Detail Performing Clinician Start: 01-16-2024 Quick Strep (POC) Start: 08-09-[address] LORRAINE LOPEZ . Comment on above: Performed By: #### P SAD #### [facility] [address] [place] [address] Dr. Day Davis Start: 12-09-2018 POC GLUCOSE FINGERSTICK DAVID CASTILLO Start: 12-09-2018 ASSESS DAVID GONZALEZ Start: 12-09-2018 BEDREST DAVID GONZALEZ Start: 12-09-2018 Continuous pulse oximetry DAVID CASTLILO Start: 12-09-2018 ENCOURAGE DEEP BREAT MARSHAL AND COUGHING DAVID CASTILLO Start: 12-09-2018 INITIATE OXYGEN THER APY PROTOCOL DAVID CASTILLO Start: 12-09-2018 NOTIFY PHYSICIAN (SPECIFY) DAVID CASTILLO Start: 12-09-2018 NURSING COMMUNICATION Chastity CASTILLO Start: 12-09-2018 TELEMETRY MONITORING MA REINA CASTILLO Start: 12-09-2018 VITAL SIGNS DAVID GONZALEZ Start: 12-09-2018 DISCHARGE PATIENT KARIME Huber CASTILLO Start: 12-09-2018 EKG 12-LEAD DAVID GONZALEZ Start: 12-09-2018 CREATININE W/GFR POI NT OF CARE DAVID CASTILLO Start: 12-09-2018 INITIATE OXYGEN THER APY PROTOCOL DAVID CASTILLO Start: 12-09-2018 NOTIFY PHYSICIAN (SPECIFY) DAVID CASTILLO Start: 12-09-2018 POC CHEM8 INCLUDES C ALC. ANION GAP DAVID CASTILLO Start: 12-09-2018 POCT GLUCOSE DAVID GONZALEZ Start: 12-09-2018 VITAL SIGNS DAVID GONZALEZ Plan of Treatment Date Care Activity Detail Author [facility] Immunizations Immunization Date Immunization Notes Care Provider Anna Marie hall Shingrix 50 MCG/0.5M L; Translations: [Shingrix 50 MCG/0.5ML] Sandra Archer Other [facility] Other Payers Date Payer Category Payer Medicare [id number] 1957 Medicare [id number] 1957 Self-pay [id number] 1957 Unknown [id number] 1950 Unknown [id number] 2.16.8 [id number] 1950 Unknown [id number] 2.16.84 [id number] 1950 Unknown [id number] 2.16.84 [id number] 1950 Unknown [id number] 2.16.84 [id number] 1950 Unknown [id number] 2.16.84 [id number] 1950 Unknown [id number] 2.16.84 [id number] 1950 Unknown [id number] Social History Date Type Detail Facility Unknown if ever smoked [facility] Other Sex Assigned At Sex Assigned At Bir th [facility] Other Start: 01-16-2024 Tobacco smoking status NHIS Never smoked tobacco (finding) [facility] Start: 1950 Sex Assigned At Male F [facility] Evaluation note 11-04-2023 Note Date & Type Note Facility 11-04-2023 Evaluation note Encounter Date Diagnosis Assessment Notes Oct, Type 2 diabetes mellitus with hyperglycemia , without long-term current use of insulin (ICD-10 - E11.65) [facility] Other Evaluation note 11-04-2023 Note Date & Type Note Facility 11-04-2023 Evaluation note Encounter Date Diagnosis Assessment Notes Oct, Essential (primary) hypertension (ICD-10 - I10) [facility] Other Evaluation note 09-24-2023 Note Date & Type Note Facility 09-24-2023 Evaluation note Encounter Date Diagnosis Assessment Notes Sep, Medicare annual wellness visit, subsequent (ICD-10 - Z00.00) Personalized health advice was given to the beneficiary including a written plan for screenings discussed and provided. Advanced care planning reviewed and/or information given as requested. Additional counseling was provided here today in regards to, [ ]. The above visit was performed by [ ], under direct supervision of [ ]. Document reviewed and amended by provider signed below. Sep, Type 2 diabetes mellitus with hyperglycemia, without long-term current use of insulin (ICD-10 - E11.65) Pt. advised to follow ADA diet as discussed and monitor BS regularly as advised and bring sugar log to the next appt. Monitor for hypoglycemia and call if any problems. The importance of yearly eye exams stressed Sep, Essential (primary) hypertension (ICD-10 - I10) Blood pressure remains well controlled at this time. Denies cardiac symptoms. Shows no signs or symptoms or poor control. Patient to continue with above medication and we will continue to monitor. Advised to pay attention to body and symptoms. Any developing patterns. Stay well hydrated. [facility] Other Evaluation note 08-07-2023 Note Date & Type Note Facility 08-07-2023 Evaluation note Encounter Date Diagnosis Assessment Notes Jul, Type 2 diabetes mellitus with hyperglycemia, without long-term current use of insulin (ICD-10 - E11.65) Reviewed home readings. Chronic problem, improved w increase in metformin. continue to monitor w Michael meter. Jul, Essential (primary) hypertension (ICD-10 - I10) Blood pressure remains well controlled at this time. Denies cardiac symptoms. Shows no signs or symptoms or poor control. Patient to continue with above medication and we will continue to monitor. Advised to pay attention to body and symptoms. Any developing patterns. Stay well hydrated. Jul, Mixed hyperlipidemia (ICD-10 - E78.2) Patient to continue to watch diet and increase exercise routine. Remain active as tolerated and we will continue to monitor with routine blood work. Patient is to continue with above medication as directed. Jul, Encounter for immunization (ICD-10 - Z23) Jul, KAYLYNN (obstructive sleep apnea) (ICD-10 - G47.33) Reviewed initial sleep study w pt. Will followup w the sleep lab as he had a lot of episodes on the recent test. [facility] Other Evaluation note 06-24-2023 Note Date & Type Note Facility 06-24-2023 Evaluation note Encounter Date Diagnosis Assessment Notes Jun, Mixed hyperlipidemia (ICD-10 - E78.2) recheck labs later this year. 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 Family has encouraged him to eval this. Jun, Sleep apnea, unspecified type (ICD-10 - G47.30) Handwrote referral to [place] sleep lab for testing. Jun, Type 2 diabetes mellitus with hyperglycemia, without long-term current use of insulin (ICD-10 - E11.65) Labs much improved - continue healthy diet and meds with freestyle meter. [facility] Other Evaluation note 06-24-2023 Note Date & Type Note Facility 06-24-2023 Evaluation note Encounter Date Diagnosis Assessment Notes Jun, Mixed hyperlipidemia (ICD-10 - E78.2) recheck labs later this year. 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 Family has encouraged him to eval this. Jun, Sleep apnea, unspecified type (ICD-10 - G47.30) Handwrote referral to [place] sleep lab for testing. Family states he snores and he is often fatigued. Jun, Type 2 diabetes mellitus with hyperglycemia, without long-term current use of insulin (ICD-10 - E11.65) Labs much improved - continue healthy diet and meds with freestyle meter. [facility] Other Evaluation note 06-23-2023 Note Date & Type Note Facility 06-23-2023 Evaluation note Encounter Date Diagnosis Assessment Notes Jun, Type 2 diabetes mellitus with hyperglycemia , without long-term current use of insulin (ICD-10 - E11.65) [facility] Other Evaluation note Note Date & Type Note Facility Evaluation note No Information [facility] Other Evaluation note Note Date & Type Note Facility Evaluation note Diagnosis Onset Date Maxillary sinusitis acute Screening PSA (prostate specific antigen) acute [id number] [facility] Work Phone: History general Narrative - Reported Note Date & Type Note Facility History general Narrative - Reported Type Medical History hyperlipidemia Medical History hypertension Medical History type II diabetes Medical History hay fever Surgical History Retinal Surgery Surgical History melanoma Surgical History cataract Hospitalization History See Above [facility] Other Summary Purpose Family History Relationship Condition Age at Onset Recorded Date/T radha brother Diabetes mellitus Unknown father Unknown Diabetes mellitus Unknown Not Specified Diabetes mellitus Unknown Unknown Advance Directives Advance Directive Response Recorded Date/ Time Advance Directives No December 01, 2023 6:23pm Reason for Referral Reason *FU 07/04 [facility] office. 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) Referral Organization [facility] Referring Provider First Name Sandra Referring Provider Last Name Suzi Referring Provider Specialty Family [facility] Referred Organization [facility] Referred Provider Marisol Parada Referred Address ,[place], [place],[address] Referred Provider Specialty Otolaryngolo gy Referral Priority Routine General Notes Octavia Fabian 12:41:31 PM >received today, insurance attached, waiting for notes to be locked to fax Octavia Fabian 06/27/2023 11:15:25 AM >notes locked, referral faxed Reason [facility] offic e. 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) Referral Organization [facility] ting Referring Provider First Name Sandra Referring Provider Last Name Suzi Referring Provider Specialty Family [facility] Referred Organization [facility] Referred Provider Chsatity Paradaary Referred Address ,[place], [place] Referred Provider Specialty Ear, Nose an d Throat Referral Priority Routine General Notes Octavia Fabian 12:41:31 PM >received today, insurance attached, waiting for notes to be locked to fax Chief Complaint and Reason for Visit Chief Complaint Amb Documentation Head Cold-Stuffy nose 4 Month Check Up Reason for Visit Maxillary sinusitis Screening PSA (prostate specific antigen) [id number] Additional Source Comments (unrecognized sect ion and content) No Status Records FoundNo Status Records FoundNo Status Records Found INFORMATION SOURCE (unrecogn ized section and content) DATE CREATED AUTHOR 12/28/2018 [facility] DATE CREATED AUTHOR AUTHOR'S ORGANIZ ATION 03/06/2023 [facility] DATE CREATED AUTHOR AUTHOR'S ORGANIZ ATION 11/01/2023 [facility] d[facility] Specialists EPIC REASON FOR VISIT (unrecogniz ed section and content) New Refill RequestNew Refill RequestUpdate Demographics - Personal InfolabsLOCK NOTES PLEASE3 month Follow up3 month Follow upCheck UpWellnessrefillNew Refill RequestNew Refill Request Care Teams (unrecognized sec tion and content) Team Status: Active Member Role Status Dates Sandra Archer MD Primary Care Provider Active Team Status: Active Member Role Status Dates Sandra Archer MD Primary Care Provider Active Start: January 06, 2024 ADRIAN Perez Attending Provider Active Start : January 06, 2024 Team Status: Inactive Member Role Status Dates Sandra Archer MD Primary Care Provider Active Start: January 16, 2024 End: January 16, 2024 Renuka Irizarry APRN [employer] Attending Provider Act nael Start: January 16, 2024 End: January 16, 2024 Team Status: Inactive Member Role Status Dates Sandra Archer MD Primary Care Provide r, Attending Provider Active Start: January 26, 2024 End: January 26, 2024 Goals (unrecognized section and content) Goals may be documented in a n alternate section FOR RECORDS PERTAINING TO PATIENTS WHO ARE OR HAVE BEEN ENROLLED IN A CHEMICAL DEPENDENCY/SUBSTANCEABUSE PROGRAM, SOME INFORMATION MAY BE OMITTED. This clinical summary was aggregated from multiple sources. Caution should be exercised in using it in the provision of clinical care. This summary normalizes information from multiple sources, and as a consequence, information in this document may materially change the coding, format and clinical context of patient data. In addition, data may be omitted in some cases. CLINICAL DECISIONS SHOULD BE BASED ON THE PRIMARY CLINICAL RECORDS. [employer] [facility]. provides no warranty or guarantee of the accuracy or completeness of information in this document.
[2024-05-27 10:56] LABS: Basophils Absolute Auto 0.1 10^3/uL (0.0-0.1); Basophils Percent Auto 0.7 % (0.2-2.0); Eosinophils Absolute Auto 0.2 10^3/uL (0.0-0.7); Eosinophils Percent Auto 2.6 % (0.9-7.0); Hematocrit 39.4 % (42.0-54.0); Hemoglobin 12.7 g/dL (14.0-18.0); Immature Granulocytes Abs Auto 0.02 10^3/uL (0.00-0.03); Immature Granulocytes Pct Auto 0.3 % (0.0-0.5); Lymphocytes Percent Auto 26.9 % (20.5-60.0); Mean Corpuscular HGB Conc 32.2 g/dL (29.9-35.2); Mean Corpuscular Hemoglobin 30.2 pg (25.9-34.0); Mean Corpuscular Volume 93.6 fL (80.0-94.0); Mean Platelet Volume 9.1 fL (9.5-13.5); Monocytes Absolute Auto 0.7 10^3/uL (0.3-0.8); Monocytes Percent Auto 8.6 % (1.7-12.0); Neutrophils Absolute Auto 4.6 10^3/uL (1.4-6.5); Neutrophils Percent Auto 60.9 % (43.0-75.0); Platelet Count 271 10^3/uL (150-450); Red Blood Count 4.21 10^6/uL (4.70-6.10); Red Cell Distribution Width 12.3 % (11.0-15.0); White Blood Count 7.6 10^3/uL (4.0-11.0)
[2024-05-27 11:08] LABS: Estimated Average Glucose 163 mg/dL; Glycohemoglobin A1C 7.3 % (4.5-6.2)
[2024-05-27 11:13] LABS: Alanine Aminotransferase 28 U/L (16-63); Albumin Globulin Ratio 1.1; Alkaline Phosphatase 68 U/L (46-116); Anion Gap 10.5; Aspartate Amino Transferase 16 U/L (15-37); BUN Creatinine Ratio 17.2; Bilirubin Total 0.9 mg/dL (0.2-1.0); Calcium 8.7 mg/dL (8.5-10.1); Carbon Dioxide 30.5 mmol/L (21.0-32.0); Chloride 101 mmol/L (98-107); Cholesterol 168 mg/dL (<=200); Estimated GFR (African America >60 (>=60); Estimated GFR (Non-African Ame >60 (>=60); Globulin 3.5 g/dL; Glucose 106 mg/dL (74-106); HDL Cholesterol 56 mg/dL (40-60); LDL Cholesterol Calculated 101.4 mg/dL; Sodium 138 mmol/L (136-145); Total Protein 7.5 g/dL (6.4-8.2); Triglycerides 53 mg/dL (<=150); VLDL CHOLESTEROL 10.6 mg/dL
== END 2024-05-27 10:29 | disposition home or self-care (01) ==
LOC: LAB 10:29
PROVIDERS: PCP Family Medicine; Visit Provider Family Medicine
DX: E11.65 Type 2 diabetes mellitus with hyperglycemia (principal); I10 Essential (primary) hypertension; E78.5 Hyperlipidemia, unspecified
CPT/HCPCS: 36415; 80053; 80061; 82043; 83036; 85025

== ENCOUNTER 2024-12-27 09:36 | Outpatient (OUT) | payer MEDICARE, OTHER, SELFPAY ==
--- NOTE | 2024-12-27 | XR_ITS ---
The [address] [address] Patient Name: ROXANE GRACE MRN: [id number] date: 1950 Sex: M Assigned Patient Location: Current Patient Location: Accession/Order Number: [id number] Exam Date: 12/27/2024 10:45 Report Date: 12/27/2024 17:50 At the request of: BJ MCNULTY Procedure: XR knee EROS 4V EXAM: XR knee EROS 4V HISTORY: BILATERAL KNEE PAIN COMPARISON: None. FINDINGS: 4 views right knee were obtained. There is medial joint space narrowing with subchondral sclerosis and marginal osteophyte formation. Less pronounced degenerative changes noted in the lateral patellofemoral compartments. No acute fracture or dislocation. The articular surface appears smooth in contour. Patella is appropriately positioned. There is evidence of joint effusion. Vascular calcifications are present. 4 views left knee were obtained. There is medial joint space narrowing with mild marginal osteophyte formation. Additional degenerative changes noted in the lateral patellofemoral compartments. No acute fracture or dislocation. Articular surfaces smooth in contour. The patella is appropriately positioned. There is a suggestion of small joint effusion. Vascular calcifications are present. XR/XR knee EROS 4V IMPRESSION: Tricompartmental osteoarthritis of the knees with medial compartment predominance, right greater than left. Bilateral joint effusions. Electronically authenticated by: BJ ESPNIAL Date: 12/27/2024 17:50
--- OUTSIDE RECORDS SUMMARY | 2024-12-27 09:56 | XMS_ITS | CCD ---
Author Organization [facility] Care Team Providers Care [employer] Ref[employer] Handler Name Role Phone DAVID CASTILLO Admitting Unavailable DAVID CASTILLO Attending Unavailable PATELLORRAINE Primary Care Unavailable PATEL ., DR LORRAINE Montero Admitting Unavailable PATEL ., DR LORRAINE Montero Attending Unavailable PATEL ., DR LORRAINE Montero Primary Care Unavailable PATEL ., DR LORRAINE Montero Consulting Unavailable PATEL ., DR LORRAINE Montero Primary Care Unavailable DAVID MITCHELL Admitting Unavailable DAVID MITCHELL Attending Unavailable DAVID MICTHELL Consulting Unavailable ESTER MCCRAY Consulting Unavailable PATEL ., DR LORRAINE Montero Admitting Unavailable PATEL ., DR LORRAINE Montero Attending Unavailable PATEL ., DR LORRAINE Montero Primary Care Unavailable PATEL ., DR LORRAINE Montero Admitting Unavailable PATEL ., DR LORRAINE Montero Attending Unavailable PATEL ., DR LORRAINE Montero Primary Care Unavailable PATEL ., DR LORRAINE Montero Consulting Unavailable PATEL ., DR LORRAINE Montero Admitting Unavailable PATEL ., DR LORRAINE Montero Attending Unavailable PATEL ., DR LORRAINE Montero Primary Care Unavailable PATEL ., DR LORRAINE Montero Consulting Unavailable Sandra Archer Unavailable Sandra Archer MD Primary Care Provider [phone] NATALEE MARIEE Attending Unavailable Alex Thorne Attending Unavailable Dwayne Gutierrez Referring Unavailable Alex Thorne Attending Unavailable Alex Thorne MD Unavailable Gin montero Allergies Allergy Classification Reported Allergen(s) Allergy Type Date of Onset Reaction(s) Facility (3 sources) Pollen Propensity to adverse reactions 9 [facility] Healthcare Work Phone: Medications Current Medications Medication Drug Class(es) Dates Sig (Normalized) Sig (Original) Aspir-81 (12 sources) Aspir-81 Active aspirin 81 mg delayed release oral tablet (7 sources) Platelet Aggregation Inhibitor, Nonsteroidal Anti-inflammatory Drug Start: 08-20-2024 take 1 tablet by mouth once daily aspirin 81 mg tablet,delayed release take 1 tablet by oral route every day 81 MG - Active Start: 01-15-2024 take 1 capsule by mouth once d aily Aspirin 81 mg capsule Active 81 MG PO Daily January 15, 2024 12:00am take 1 tablet by joseph th in the morning ASPIRIN 81 PO Take 1 tablet by mouth in the morning. Active atenolol 100 mg oral tablet (20 sources) beta-Adrenergic Wander Start: 01-06-2024 End: 09-16-2024 take 1 tablet by mouth once daily Atenolol 100 mg tablet Active 100 MG PO Daily September 16, 2024 10:05am Continuous Blood Gluc Sensor (FreeStyle Michael 2 Sensor) misc (3 sources) Start: 07-18-2023 Continuous Blo od Gluc Sensor (FreeStyle Michael 2 Sensor) misc USE DIRECTED 07/18/2023 Active Flash Glucose Sensor (Freestyle Michael 2 Sensor) kit (6 sources) Start: 11-11-2024 Flash Glucose Sensor (Freestyle Michael 2 Sensor) kit Active 0 .ROUTE .COMPLEX 2 November 11, 2024 1:22pm USE DIRECTED Start: 06-21-2024 End: 11-11-2024 Flash Glucose Sensor (Freest yle Michael 2 Sensor) kit Discontinued 0 .ROUTE .COMPLEX 2 June 21, 2024 10:42am November 11, 2024 1:22pm USE DIRECTED Start: 03-06-2024 End: 06-21-2024 Flash Glucose Sensor (Freest yle Michael 2 Sensor) kit Discontinued 0 .ROUTE .COMPLEX 2 March 06, 2024 8:46pm June 21, 2024 10:42am USE DIRECTED Start: 03-06-2024 Flash Glucose Sensor (Freestyle Michael 2 Sensor) kit Active 0 .ROUTE .COMPLEX 2 March 06, 2024 9:46pm USE DIRECTED Start: 03-05-2024 End: 03-06-2024 Flash Glucose Sensor (Freest yle Michael 2 Sensor) kit Discontinued 0 .Route March 04, 2024 11:00pm March 06, 2024 8:46pm As directed Start: 03-05-2024 End: 03-06-2024 Flash Glucose Sensor (Freest yle Michael 2 Sensor) kit Discontinued 0 .Route March 05, 2024 12:00am March 06, 2024 9:46pm As directed fluticasone propionate 0.05 mg/actuat metered dose nasal spray (20 sources) Corticosteroid Start: 08-20-2024 take 50 ug nasal route once daily as needed Flonase Allergy Relief 50 mcg/actuation nasal spray,suspension spray 1 - 2 spray by intranasal route every day in each nostril as needed 50-100 MCG - Active Start: 01-15-2024 End: 09-16-2024 Fluticasone Propionate 50 mc g/actuation spray,suspension Active 1 SPRAY INTRANASAL Daily September 16, 2024 10:04am take 1 spray(s) nasa l route once daily fluticasone (Flonase) 50 MCG/ACT nasal spray Administer 1 spray into each nostril 1 (one) time each day at the same time. Active take 1 spray(s) nasa l route once daily Fluticasone Propionate 50 MCG/ACT 1 spray in each nostril Nasally Once a day for 90 days Active take 1 spray(s) nasa l route once daily Fluticasone Propionate 50 MCG/ACT 1 spray in each nostril Nasally Once a day for 90 days Active FreeStyle Michael 2 [facility] - (12 sources) Start: 03-31-2023 FreeStyle Libr e 2 [facility] - as directed March, Active FreeStyle Michael 2 Sensor - (5 sources) FreeStyle Michael 2 Sensor - USE DIRECTED for 28 Active FreeStyle Michael Sensor (7 sources) Start: 03-31-2023 FreeStyle Libr e Sensor March, Active glipiZIDE 5 mg oral tablet (20 sources) Sulfonylurea Start: 03-06-2024 End: 11-24-2024 take 1 tablet by mouth once daily 30 minutes before breakfast Glipizide 5 mg tablet Active 0 .ROUTE .COMPLEX 90 November 24, 2024 12:18pm TAKE 1 TABLET BY MOUTH 30 MINUTES BEFORE BREAKFAST ONCE DAILY Start: 01-26-2024 End: 03-06-2024 take 1 tablet by mouth twice daily Glipizide 5 mg tablet Discontinued 5 MG PO Twice daily January 26, 2024 8:33am March 06, 2024 8:46pm Start: 01-15-2024 End: 01-26-2024 take 1 tablet by mouth once daily Glipizide 5 mg tablet Discontinued 5 MG PO Daily January 15, 2024 12:00am January 26, 2024 8:35am glipizide 5 mg t ablet take 1/2 tablet (2.5MG) by oral route every day if sugar is greater than 160 - Active take 2 tablets by mo ut every twenty-four hours glipiZIDE 5 MG 2 tablets Oral Once a day for 90 days Active metFORMIN hydrochloride 500 mg oral tablet (20 sources) Biguanide Start: 08-20-2024 take 2 tablets by mouth twice daily at dinner metformin 500 mg tablet take 2 tablet by oral route 2 times every day with morning and evening meals 1000 MG - Active Start: 06-21-2024 End: 11-26-2024 take 2 tablets by mouth twice daily Metformin 500 mg tablet Active 0 .ROUTE .COMPLEX 120 November 26, 2024 11:56am TAKE 2 TABLETS BY MOUTH TWICE A DAY Start: 01-15-2024 End: 06-21-2024 take 2 tablets by mouth twice daily Metformin 500 mg tablet Discontinued 1000 MG PO Twice daily 180 May 27, 2024 9:33am June 21, 2024 10:42am Start: 01-15-2024 take 1000 mg by mout h twice daily Metformin Active 1000 MG PO Twice daily January 15, 2024 1:00am Multi Complete - (12 sources) Multi Complete - as directed Orally Active Multiple Vitamins-Minerals (Multi Complete) capsule (3 sources) take 1 tablet by mouth in the morning Multiple Vitamins-Minerals (Multi Complete) capsule Take 1 tablet by mouth in the morning. Active Multivitamin (Daily Multi-Vitamin) tablet (3 sources) Start: 01-15-2024 take 1 tablet by mouth once daily Multivitamin (Daily Multi-Vitamin) tablet Active 1 TAB PO Daily January 15, 2024 12:00am Start: 01-15-2024 take 1 tablet by joseph once daily Multivitamin (Daily Multi-Vitamin) tablet Active 1 TAB PO Daily January 15, 2024 1:00am Multivitamin 50 Plus tablet (1 source) Start: 08-20-2024 Multivitamin 5 0 Plus tablet - Active niacin 500 mg oral tablet (19 sources) Nicotinic Acid Start: 01-15-2024 take 1 tablet by mouth twice daily Niacin 500 mg tablet Active 500 MG PO Twice daily January 15, 2024 12:00am niacin ER 500 mg tablet,extended release bid - Active take 1 capsule by mouth in the m orning Inositol Niacinate (Niacin Flush Free) 500 MG capsule Take 1 capsule by mouth in the morning. Active take 1 tablet by joseph th every twelve hours Niacin 500 MG 1 tablet with food Orally twice a day Active take 1 tablet by joseph th every twenty-four hours Niacin 500 MG 1 tablet with food Orally Once a day Active pravastatin sodium 40 mg oral tablet (20 sources) HMG-CoA Reductase Inhibitor Start: 01-06-2024 End: 09-16-2024 take 1 tablet by mouth once daily Pravastatin 40 mg tablet Active 40 MG PO Daily September 16, 2024 10:04am sertraline 25 mg oral tablet (18 sources) Serotonin Reuptake Inhibitor Start: 01-15-2024 take 1 tablet by mouth once daily Sertraline 25 mg tablet Active 25 MG PO Daily January 15, 2024 12:00am triamcinolone acetonide 1 mg/ml topical cream (3 sources) Corticosteroid Start: 10-30-2023 triamcinolone (Kenalog) 0.1 % cream Indications: Other atopic dermatitis Apply to affected areas, up to twice a day when flared, do not use one the face, groin, or underarms, 30 day supply 454 g 11 10/30/2023 Active Completed/Discontinued Medications Medication Drug Class(es) Dates Sig (Normalized) Sig (Original) amoxicillin 875 mg / clavulanate 125 mg oral tablet (3 sources) Penicillin-class Antibacterial Start: 01-16-2024 End: 01-26-2024 take 1 tablet by mouth twice daily Amoxicillin-Pot Clavulanate 875-125 mg tablet Discontinued 1 TAB PO Twice daily 14 January 16, 2024 12:00am January 26, 2024 8:32am Problems Active Problems Problem Classification Problem Date Documented Da te Episodic/Chronic Allergic reactions (3 sources) Atopic dermatitis; Translations: [Other atopic dermatitis] Onset: 09-09-2023 09-09-2023 Chronic Cataract (13 sources) Presence of intraocular lens; Translations: [Lens replaced by other means] Onset: 08-20-2024 Chronic Diabetes mellitus with complications (20 sources) Type 2 diabetes mellitus with unspecified complications; Translations: [Type 2 diabetes mellitus] Onset: 12-29-2022 Chronic Diabetes mellitus without complication (11 sources) Type 2 diabetes mellitus without complications; Translations: [Type 2 diabetes mellitus without complications] Onset: 08-20-2024 Chronic Disorders of lipid metabolism (20 sources) Mixed hyperlipidemia; Translations: [Mixed hyperlipidemia] Onset: 09-09-2023 Chronic E Codes: Fall (1 source) Other fall on same level, initial encounter; Translations: [OTHER FALL ON SAME LEVEL INITIAL] Onset: 03-06-2023 Episodic Essential hypertension (20 sources) Essential (primary) hypertension; Translations: [Essential hypertension] Onset: 08-12-2022 Chronic Immunizations and screening for infectious disease (2 sources) Encounter for immunization; Translations: [ENCOUNTER FOR IMMUNIZATION] Onset: 03-06-2023 Episodic Malaise and fatigue (4 sources) Other fatigue; Translations: [OTHER FATIGUE] Onset: 12-24-2022 Episodic Melanomas of skin (17 sources) H/O Malignant melanoma; Translations: [Personal history of malignant melanoma of skin] Onset: 09-09-2023 09-09-2023 Episodic Other aftercare (1 source) [facility] (current) use of aspirin; Translations: [SENIOR CARE CURRENT USE OF ASPIRIN] Onset: 03-06-2023 Episodic Other aftercare (1 source) 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; Translations: [HUMAN RESOURCE ASSISTANT USE ORAL HYPOGLYCEMIC DX] Onset: 03-06-2023 Episodic Other aftercare (1 source) 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; Translations: [OTH HUMAN RESOURCE ASSISTANT CURRENT DRUG THERAPY] Onset: 03-06-2023 Episodic Other and unspecified benign neoplasm (2 sources) Melanocytic nevus of trunk; Translations: [Melanocytic nevi of trunk] 10-28-2024 Episodic Other and unspecified benign neoplasm (2 sources) Dermatofibroma; Translations: [Other benign neoplasm of skin, unspecified] 10-28-2024 Episodic Other ear and sense organ disorders (13 sources) Mixed conductive and sensorineural hearing loss, bilateral; Translations: [Mixed conductive and sensorineural hearing loss, bilateral] 01-15-2024 Chronic Other ear and sense organ disorders (2 sources) Mixed conductive and sensorineural hearing loss, bilateral Chronic Other ear and sense organ disorders (3 sources) Sensorineural hearing loss, bilateral; Translations: [Sensorineural hearing loss, bilateral] Onset: 09-09-2023 09-10-2023 Chronic Other eye disorders (3 sources) Vitreous degeneration Chronic Other eye disorders (2 sources) Esotropia, unspecified Episodic Other injuries and conditions due to external causes (4 sources) Unspecified injury of head, initial encounter; Translations: [UNSPECIFIED INJURY HEAD INITIAL ENC] Onset: 03-04-2023 Episodic Other non-traumatic joint disorders (2 sources) Pain in right knee; Translations: [Pain in both knees] 12-13-2024 Episodic Other screening for suspected conditions (not mental disorders or infectious disease) (4 sources) Patient encounter status; Translations: [Encounter for screening for malignant neoplasm of prostate] 01-26-2024 Episodic Other skin disorders (2 sources) Seborrheic keratosis; Translations: [Other seborrheic keratosis] 10-28-2024 Episodic Other skin disorders (2 sources) Lentiginosis; Translations: [Other melanin hyperpigmentation] 10-28-2024 Episodic Other upper respiratory infections (4 sources) Maxillary sinusitis; Translations: [Chronic maxillary sinusitis] 01-16-2024 Chronic Peripheral and visceral atherosclerosis (5 sources) Peripheral vascular disease, unspecified; Translations: [PERIPHERAL VASCULAR DISEASE UNS] Onset: 12-19-2022 Chronic Residual codes; unclassified (13 sources) Sleep apnea; Translations: [Sleep apnea, unspecified] Onset: 09-09-2023 09-09-2023 Chronic Residual codes; unclassified (2 sources) Sleep apnea, unspecified Chronic Residual codes; unclassified (11 sources) Obstructive sleep apnea syndrome; Translations: [Obstructive sleep apnea (adult) (pediatric)] 01-15-2024 Chronic Residual codes; unclassified (2 sources) Obstructive sleep apnea (adult) (pediatric); Translations: [Obstructive sleep apnea (adult)(pediatric)] Chronic Retinal detachments; defects; vascular occlusion; and retinopathy (20 sources) Puckering of macula, bilateral; Translations: [Puckering of macula, right eye] Onset: 08-20-2024 Chronic Retinal detachments; defects; vascular occlusion; and retinopathy (20 sources) Retinal detachment with single break, left eye; Translations: [Recent retinal detachment, partial, with single defect] Onset: 08-15-2022 Resolved: 08-13-2023 09-09-2023 Episodic Sprains and strains (1 source) Strain of [...] Problem Date Documented Da te Episodic/Chronic Other ear and sense organ disorders (3 sources) Bilateral tinnitus; Translations: [Tinnitus, bilateral] Onset: 09-10-2023 09-10-2023 Episodic Other male genital disorders (4 sources) Disorder of prostate, unspecified; Translations: [DISORDER OF PROSTATE UNSPECIFIED] Onset: 08-09-2022 Episodic Unclassified (1 source) RD (multiple - repaired) (chief complaint) Onset: 08-20-2024 Unclassified (1 source) 1 yr fu due to retinal detachment w/ single break (chief complaint) Stable vision (chief complaint) Onset: 07-17-2021 Unclassified (1 source) repaired RD (chief complaint) stable vision (chief complaint) Onset: 06-28-2020 Unclassified (1 source) history of a RD repair (chief complaint) stable vision (chief complaint) Onset: 12-29-2019 Unclassified (1 source) Retinal detachment (chief complaint) improved vision (chief complaint) Onset: 06-23-2019 Unclassified (1 source) treated RD (chief complaint) Onset: 03-10-2019 Unclassified (1 source) retinal detachment (chief complaint) stable vision (chief complaint) Onset: 01-27-2019 Unclassified (1 source) treated RD (chief complaint) patient fell (chief complaint) Onset: 01-13-2019 Unclassified (1 source) treated retinal detachment (chief complaint) slightly improved vision (chief complaint) Onset: 12-17-2018 Unclassified (1 source) Retinal Detachment (chief complaint) denies ocular pain (chief complaint) Onset: 12-10-2018 Unclassified (1 source) left cobwebs (chief complaint) Follow Up of Retinal detachment (chief complaint) Onset: 12-06-2018 Unclassified (1 source) history of recurrent retinal detachment (chief complaint) denies vision changes (chief complaint) Onset: 03-11-2018 Unclassified (1 source) history of multiple RD (chief complaint) improvement in floaters (chief complaint) Onset: 03-12-2017 Unclassified (1 source) old RD and ERM (chief complaint) decreased vision (chief complaint) floaters (chief complaint) Onset: 03-13-2016 Unclassified (1 source) Old Retinal Detachment (chief complaint) increased vision (chief complaint) Onset: 03-16-2014 Results Test Name Value Interpretation Reference Range Facility No Panel InformationOrdered By: Renuka Irizarry on 01-16-2024 Quick Strep (POC) [facility] CSPINE WO CONon 3 CT CSPINE [...] ESTER MCCRAY Date: 2023-03-05 01:00 Normal [facility] CBC AUTO DIFFon 12-24-2022 BASO # 0.1 103/ul Normal 0.0-0.1 [facility] Comment on above: Performed By: #### C BC #### [facility] [address] [place] [address] Dr. Day Davis Basophils/100 WBC (Bld) 0.9 % Normal 0.2-2.0 [facility] Comment on above: Performed By: #### C BC #### [facility] [address] [place] [address] Dr. Day Davis EO # 0.2 103/ul Normal 0.0-0.7 [facility] Comment on above: Performed By: #### C BC #### [facility] [address] [place] [address] Dr. Day Davis Eosinophils/100 WBC (Bld) 2.7 % Normal 0.9-7.0 [facility] Comment on above: Performed By: #### C BC #### [facility] [address] [place] [address] Dr. Day Davis Erythrocyte distribution width (RBC) [Ratio] 12.5 % Normal 11.0-15.0 [facility] Comment on above: Performed By: #### C BC #### [facility] [address] [place] [address] Dr. Day Davis Hematocrit (Bld) [Volume fraction] 40.7 % Critically low 42.0-54.0 [facility] Comment on above: Performed By: #### C BC #### [facility] [address] [place] [address] Dr. Day Davis Hemoglobin (Bld) [Mass/Vol] 13.9 g/dL Critically low 14.0-18.0 [facility] Comment on above: Performed By: #### C BC #### [facility] [address] [place] [address] Dr. Day Davis IG # 0.02 10e3/ul Normal 0.00-0.03 [facility] Comment on above: Performed By: #### C BC #### [facility] [address] [place] [address] Dr. Day Davis IG % 0.3 % Normal 0.0-0.5 [facility] Comment on above: Performed By: #### C BC #### [facility] [address] [place] [address] Dr. Day Davis LYMPH # 1.8 103/ul Normal 1.2-3.8 [facility] Comment on above: Performed By: #### C BC #### [facility] [address] [place] [address] Dr. Day Davis Lymphocytes/100 WBC (Bld) 26.3 % Normal 20.5-60.0 [facility] Comment on above: Performed By: #### C BC #### [facility] [address] [place] [address] Dr. Day Davis MANUAL DIFF REQ NO Normal [facility] Comment on above: Performed By: #### C BC #### [facility] [address] [place] [address] Dr. Day Davis MCH (RBC) [Entitic mass] 30.4 pg Normal 25.9-34.0 [facility] Comment on above: Performed By: #### C BC #### [facility] [address] [place] [address] Dr. Day Davis MCHC (RBC) [Mass/Vol] 34.2 g/dL Normal 29.9-35.2 [facility] Comment on above: Performed By: #### C BC #### [facility] [address] [place] [address] Dr. Day Davis MCV (RBC) [Entitic vol] 89.1 fL Normal 80.0-94.0 [facility] Comment on above: Performed By: #### C BC #### [facility] [address] [place] [address] Dr. Day Davis MONO # 0.5 103/ul Normal 0.3-0.8 [facility] Comment on above: Performed By: #### C BC #### [facility] [address] [address] [address] Day Davis Monocytes/100 WBC (Bld) 6.8 % Normal 1.7-12.0 [facility] Comment on above: Performed By: #### C BC #### [facility] [address] [address] [address] Day Davis NEUT # 4.4 103/ul Normal 1.4-6.5 [facility] Comment on above: Performed By: #### C BC #### [facility] [address] [address] [address] Day Davis Neutrophils/100 WBC (Bld) 63.0 % Normal 43.0-75.0 [facility] Comment on above: Performed By: #### C BC #### [facility] [address] [place] [address] Dr. Day Davis Platelet mean volume (Bld) [Entitic vol] 9.2 fL Critically low 9.5-13.5 [facility] Comment on above: Performed By: #### C BC #### [facility] [address] [place] [address] Dr. Day Davis PLT 226 103/ul Normal 150-450 [facility] Comment on above: Performed By: #### C BC #### [facility] [address] [place] [address] Dr. Day Davis RBC 4.57 106/ul Critically low 4.70-6.10 [facility] Comment on above: Performed By: #### C BC #### [facility] [address] [place] [address] Dr. Day Davis WBC 7.0 103/ul Normal 4.0-11.0 [facility] Comment on above: Performed By: #### C BC #### [facility] [address] [place] [address] Dr. Day Davis GLYCOHEMOGLOBIN A1Con 2022 ADA RECOMMENDATION SEE BELOW Normal [facility] Comment on above: Result Comment: ADA RECOMMENDED LIMIT 4.0 - 6.0 ADA THERAPEUTIC TARGET < 7.0 ACTION SUGGESTED > 7.0 Performed By: #### A 1C #### [facility] [address] [place] [address] Dr. Day Davis Glucose [Mass/Vol] 209 mg/dL Normal [facility] Comment on above: Performed By: #### A 1C #### [facility] [address] [place] [address] Dr. Day Davis HbA1c (Bld) [Mass fraction] 8.9 % Critically high 4.5-6.2 [facility] Comment on above: Performed By: #### A 1C #### [facility] [address] [place] [address] Dr. Day Davis CBC AUTO DIFFon 08-09-2022 BASO # 0.1 103/ul Normal 0.0-0.1 [facility] Comment on above: Performed By: #### C BC #### [facility] [address] [place] [address] Dr. Day Davis Basophils/100 WBC (Bld) 0.7 % Normal 0.2-2.0 [facility] Comment on above: Performed By: #### C BC #### [facility] [address] [place] [address] Dr. Day Davis EO # 0.2 103/ul Normal 0.0-0.7 [facility] Comment on above: Performed By: #### C BC #### [facility] [address] [place] [address] Dr. Day Daivs Eosinophils/100 WBC (Bld) 3.4 % Normal 0.9-7.0 [facility] Comment on above: Performed By: #### C BC #### [facility] [address] [place] [address] Dr. Day Davis Erythrocyte distribution width (RBC) [Ratio] 12.1 % Normal 11.0-15.0 [facility] Comment on above: Performed By: #### C BC #### [facility] [address] [place] [address] Dr. Day Davis Hematocrit (Bld) [Volume fraction] 39.5 % Critically low 42.0-54.0 [facility] Comment on above: Performed By: #### C BC #### [facility] [address] [place] [address] Dr. Day Davis Hemoglobin (Bld) [Mass/Vol] 13.3 g/dL Critically low 14.0-18.0 [facility] Comment on above: Performed By: #### C BC #### [facility] [address] [place] [address] Dr. Day Davis IG # 0.01 10e3/ul Normal 0.00-0.03 [facility] Comment on above: Performed By: #### C BC #### [facility] [address] [place] [address] Dr. Day Davis IG % 0.1 % Normal 0.0-0.5 [facility] Comment on above: Performed By: #### C BC #### [facility] [address] [place] [address] Dr. Day Davis LYMPH # 1.8 103/ul Normal 1.2-3.8 [facility] Comment on above: Performed By: #### C BC #### [facility] [address] [place] [address] Dr. Day Davis Lymphocytes/100 WBC (Bld) 25.2 % Normal 20.5-60.0 [facility] Comment on above: Performed By: #### C BC #### [facility] [address] [place] [address] Dr. Day Davis MANUAL DIFF REQ NO Normal [facility] Comment on above: Performed By: #### C BC #### [facility] [address] [place] [address] Dr. Day Davis MCH (RBC) [Entitic mass] 30.4 pg Normal 25.9-34.0 [facility] Comment on above: Performed By: #### C BC #### [facility] [address] [place] [address] Dr. Day Davis MCHC (RBC) [Mass/Vol] 33.7 g/dL Normal 29.9-35.2 [facility] Comment on above: Performed By: #### C BC #### [facility] [address] [address] [address] Day Davis MCV (RBC) [Entitic vol] 90.2 fL Normal 80.0-94.0 [facility] Comment on above: Performed By: #### C BC #### [facility] [address] [address] [address] Day Davis MONO # 0.7 103/ul Normal 0.3-0.8 [facility] Comment on above: Performed By: #### C BC #### [facility] [address] [address] [address] Day Davis Monocytes/100 WBC (Bld) 9.8 % Normal 1.7-12.0 [facility] Comment on above: Performed By: #### C BC #### [facility] [address] [address] [address] Day Davis NEUT # 4.3 103/ul Normal 1.4-6.5 [facility] Comment on above: Performed By: #### C BC #### [facility] [address] [place] [address] Dr. Day Davis Neutrophils/100 WBC (Bld) 60.8 % Normal 43.0-75.0 [facility] Comment on above: Performed By: #### C BC #### [facility] [address] [address] [address] Day Davis Platelet mean volume (Bld) [Entitic vol] 8.8 fL Critically low 9.5-13.5 [facility] Comment on above: Performed By: #### C BC #### [facility] [address] [place] [address] Dr. Day Davis PLT 214 103/ul Normal 150-450 [facility] Comment on above: Performed By: #### C BC #### [facility] [address] [address] [address] Day Davis RBC 4.38 106/ul Critically low 4.70-6.10 [facility] Comment on above: Performed By: #### C BC #### [facility] [address] [place] [address] Dr. Day Davis WBC 7.0 103/ul Normal 4.0-11.0 [facility] Comment on above: Performed By: #### C BC #### [facility] [address] [place] [address] Dr. Day Davis GLYCOHEMOGLOBIN A1Con 2021 ADA RECOMMENDATION SEE BELOW Normal [facility] Comment on above: Result Comment: ADA RECOMMENDED LIMIT 4.0 - 6.0 ADA THERAPEUTIC TARGET < 7.0 ACTION SUGGESTED > 7.0 Performed By: #### A 1C #### [facility] [address] [place] [address] Dr. Day Davis Glucose [Mass/Vol] 177 mg/dL Normal [facility] Comment on above: Performed By: #### A 1C #### [facility] [address] [place] [address] Dr. Day Davis HbA1c (Bld) [Mass fraction] 7.8 % Critically high 4.5-6.2 [facility] Comment on above: Performed By: #### A 1C #### [facility] [address] [place] [address] Dr. Day Davis PROF 14(COMP METB)on 022 Albumin [Mass/Vol] 4.0 g/dL Normal 3.4-5.0 [facility] Comment on above: Performed By: #### C MP #### [facility] [address] [place] [address] Dr. Day Davis Albumin/Globulin [Mass ratio] 1.2 {ratio} Normal [facility] Comment on above: Performed By: #### C MP #### [facility] [address] [place] [address] Dr. Day Davis ALP [Catalytic activity/Vol] 70 U/L Normal 46-116 [facility] Comment on above: Performed By: #### C MP #### [facility] [address] [place] [address] Dr. Day Davis ALT [Catalytic activity/Vol] 37 U/L Normal 16-63 [facility] Comment on above: Performed By: #### C MP #### [facility] [address] [address] [address] Day Davis Anion gap [Moles/Vol] 11.4 mmol/L Normal [facility] Comment on above: Performed By: #### C MP #### [facility] [address] [address] [address] Day Davis AST [Catalytic activity/Vol] 18 U/L Normal 15-37 [facility] Comment on above: Performed By: #### C MP #### [facility] [address] [address] [address] Day Davis Bilirubin [Mass/Vol] 0.4 mg/dL Normal 0.2-1.0 [facility] Comment on above: Performed By: #### C MP #### [facility] [address] [address] [address] Day Davis Calcium [Mass/Vol] 8.7 mg/dL Normal 8.5-10.1 [facility] Comment on above: Performed By: #### C MP #### [facility] [address] [address] [address] Day Davis Chloride [Moles/Vol] 104 mmol/L Normal 98-107 [facility] Comment on above: Performed By: #### C MP #### [facility] [address] [address] [address] Day Davis CO2 [Moles/Vol] 26.8 mmol/L Normal 21.0-32.0 [facility] Comment on above: Performed By: #### C MP #### [facility] [address] [address] [address] Day Davis Creatinine [Mass/Vol] 0.94 mg/dL Normal 0.70-1.30 [facility] Comment on above: Performed By: #### C MP #### [facility] [address] [address] [address] Day Davis EGFR-AF GUAMANIAN >60 Normal >=60 [facility] Comment on above: Performed By: #### C MP #### [facility] [address] [address] [address] Day Davis EGFR-NON AF GUAMANIAN >60 Normal >=60 [facility] Comment on above: Performed By: #### C MP #### [facility] [address] [address] [address] Day Davis Globulin (S) [Mass/Vol] 3.3 g/dL Normal [facility] Comment on above: Performed By: #### C MP #### [facility] [address] [address] [address] Day Davis Glucose [Mass/Vol] 183 mg/dL Critically high 74-106 [facility] Comment on above: Performed By: #### C MP #### [facility] [address] [place] [address] Dr. Day Davis Potassium [Moles/Vol] 4.2 mmol/L Normal 3.5-5.1 [facility] Comment on above: Performed By: #### C MP #### [facility] [address] [place] [address] Dr. Day Davis Protein [Mass/Vol] 7.3 g/dL Normal 6.4-8.2 [facility] Comment on above: Performed By: #### C MP #### [facility] [address] [place] [address] Dr. Day Davis Sodium [Moles/Vol] 138 mmol/L Normal 136-145 [facility] Comment on above: Performed By: #### C MP #### [facility] [address] [place] [address] Dr. Day Davis Urea nitrogen [Mass/Vol] 21.0 mg/dL Critically high 7.0-18.0 [facility] Comment on above: Performed By: #### C MP #### [facility] [address] [place] [address] Dr. Day Davis Urea nitrogen/Creatinine [Mass ratio] 22.3 mg/mg Normal [facility] Comment on above: Performed By: #### C MP #### [facility] [address] [place] [address] Dr. Day Davis OPERATIVE REPORTon 9 OPERATIVE REPORT [address] [place] [address] OPERATIVE REPORT PATIENT NAME: HANSEL CARABLALO : 1950 MED REC NO: [id number] ROOM: ACCOUNT NO: [id number] ADMIT DATE: 12/09/2018 PROVIDER: David Castillo DATE [...] a complete vitrectomy. Following vitrectomy, the patient's wiyot break was marked with intraocular diathermy. Complete [...] day with [facility]. DAVID CASTILLO [id number] Doc#: [id number] CC: Normal [facility] Vital Signs Date Time Vital Sign Value Performing Clinician Facility 12-13-2024 09:35-0500 Body height 176.53 cm [facility] 12-13-2024 09:35-0500 Body mass index (BMI) [Ratio] 29.5 kg/m2 [facility] 12-13-2024 09:35-0500 Body weight 92.07 kg [facility] 12-13-2024 09:35-0500 Diastolic blood pressure 71 mm[Hg] [facility] 12-13-2024 09:35-0500 Heart rate 67 /min [facility] 12-13-2024 09:35-0500 Systolic blood pressure 137 mm[Hg] [facility] 09-16-2024 09:39-0500 Body height 176.53 cm [facility] 09-16-2024 09:39-0500 Body mass index (BMI) [Ratio] 28.5 kg/m2 [facility] 09-16-2024 09:39-0500 Body weight 88.9 kg [facility] 09-16-2024 09:39-0500 Diastolic blood pressure 81 mm[Hg] [facility] 09-16-2024 09:39-0500 Heart rate 64 /min [facility] 09-16-2024 09:39-0500 Systolic blood pressure 154 mm[Hg] [facility] 05-27-2024 09:26-0400 Body height 176.53 cm [facility] 05-27-2024 09:26-0400 Body mass index (BMI) [Ratio] 28.3 kg/m2 [facility] 05-27-2024 09:26-0400 Body weight 88.45 kg [facility] 05-27-2024 09:26-0400 Diastolic blood pressure 79 mm[Hg] [facility] 05-27-2024 09:26-0400 Heart rate 62 /min [facility] 05-27-2024 09:26-0400 Systolic blood pressure 147 mm[Hg] [facility] 01-26-2024 09:27-0400 Body height 176.53 cm [facility] 01-26-2024 09:27-0400 Body mass index (BMI) [Ratio] 30.2 kg/m2 [facility] 01-26-2024 09:27-0400 Body weight 94.4 kg [facility] 01-26-2024 09:27-0400 Diastolic blood pressure 75 mm[Hg] [facility] 01-26-2024 09:27-0400 Heart rate 71 /min [facility] 01-26-2024 09:27-0400 Systolic blood pressure 144 mm[Hg] [facility] 01-16-2024 08:51-0500 Body height 176.53 cm [facility] 01-16-2024 08:51-0500 Body mass index (BMI) [Ratio] 29.9 kg/m2 [facility] 01-16-2024 08:51-0500 Body weight 93.44 kg [facility] 01-16-2024 08:51-0500 Diastolic blood pressure 72 mm[Hg] [facility] 01-16-2024 08:51-0500 Heart rate 80 /min [facility] 01-16-2024 08:51-0500 SaO2% (BldA) [Mass fraction] 98 % [facility] 01-16-2024 08:51-0500 Systolic blood pressure 138 mm[Hg] [facility] 09-24-2023 09:30-0500 Body height 176.53 cm Sandra Archer Other [employer] [facility] [employer] Other 09-24-2023 09:30-0500 Body mass index (BMI) [Ratio] 30.13 kg/m2 Sandra Archer Other [employer] Other 09-24-2023 09:30-0500 Body weight 93.9 kg Sandra Archer Other [employer] Other 09-24-2023 09:30-0500 Diastolic blood pressure 68 mm[Hg] Sandra Archer Other [employer] Other 09-24-2023 09:30-0500 SaO2% (BldA) [Mass fraction] 97 % Sandra Archer Other [employer] Other 09-24-2023 09:30-0500 Systolic blood pressure 138 mm[Hg] Sandra Archer Other [employer] Other 08-07-2023 10:00-0400 Body height 176.53 cm Sandra Archer Other [employer] Other 08-07-2023 10:00-0400 Body mass index (BMI) [Ratio] 28.67 kg/m2 Sandra Archer Other [employer] Other 08-07-2023 10:00-0400 Body weight 89.36 kg Sandra Archer Other [employer] Other 08-07-2023 10:00-0400 Diastolic blood pressure 65 mm[Hg] Sandra Archer Other [employer] Other 08-07-2023 10:00-0400 Systolic blood pressure 108 mm[Hg] Sandra Archer Other [employer] Other 06-24-2023 09:30-0400 Body height 176.53 cm Sandra Archer Other [employer] Other 06-24-2023 09:30-0400 Body mass index (BMI) [Ratio] 28.38 kg/m2 Sandra Archer Other [employer] Other 06-24-2023 09:30-0400 Body weight 88.45 kg Sandra Archer Other [employer] Other 06-24-2023 09:30-0400 Diastolic blood pressure 73 mm[Hg] Sandra Archer Other [employer] Other 06-24-2023 09:30-0400 Systolic blood pressure 143 mm[Hg] Sandra Archer Other [employer] Other Encounters Encounter Date Encounter Type Care Provider Facility Start: 12-13-2024 End: 12-13-2024 ambulatory [facility] Work Phone: Start: 12-13-2024 End: 12-13-2024 Patient encounter procedure [facility] Work Phone: Start: 10-28-2024 End: 10-28-2024 Office outpatient visit 15 minutes Natalee Mariee MD Work Phone: [facility] Comment on above: Seborrheic keratosis (Primary Dx); Lentigines; Melanocytic nevus of trunk; Dermatofibroma; History of malignant melanoma of skin Start: 10-28-2024 End: 10-28-2024 ambulatory NATALEE MARIEE Not Available Start: 10-28-2024 End: 10-28-2024 Bamboo flowsgeovanna Mariee MD Work Phone: [facility] Start: 10-28-2024 End: 10-28-2024 Bamboo flowsgeovanna Mariee MD Work Phone: [facility] Start: 10-27-2024 End: 10-27-2024 Alex Syed Shweiki Work Phone: [facility] Start: 10-27-2024 ambulatory Alex Syed Walker [facility] Start: 09-16-2024 End: 09-16-2024 Patient encounter procedure [facility] Work Phone: Start: 08-20-2024 End: 08-20-2024 Alex Al Shweiki Work Phone: [facility] Start: 08-20-2024 ambulatory Alexgeraldo Thorne [facility] Start: 05-27-2024 End: 05-27-2024 ambulatory [facility] Work Phone: Start: 05-27-2024 End: 05-27-2024 Patient encounter procedure [facility] Work Phone: Start: 03-05-2024 Non-patient / Non-visit [facility] Work Phone: Start: 01-26-2024 End: 01-26-2024 ambulatory [facility] Work Phone: Start: 01-26-2024 End: 01-26-2024 Patient encounter procedure [facility] Work Phone: Start: 01-16-2024 End: 01-16-2024 Patient encounter procedure [facility] Work Phone: Start: 01-06-2024 Non-patient / Non-visit [facility] Work Phone: Start: 11-04-2023 End: 11-04-2023 ambulatory Sandra Archer Other [employer] Other Start: 11-04-2023 Encounter by cesar [facility] Start: 10-01-2023 End: 10-01-2023 ambulatory Sandra Archer Other [employer] Other Start: 10-01-2023 Telephone encounter Sandra Archer [facility] Start: 09-24-2023 End: 09-24-2023 ambulatory Sandra Archer Other [employer] Other Start: 09-24-2023 Patient encounter procedure Sandra Archer [facility] Start: 08-13-2023 End: 08-13-2023 Jose Sue Work Phone: [facility] Start: 08-07-2023 End: 08-07-2023 ambulatory Sandra Archer Other [employer] Other Start: 08-07-2023 Office outpatient vi sit 15 minutes Sandra Archer [facility] Start: 06-26-2023 End: 06-26-2023 ambulatory Sandra Archer Other [employer] Other Start: 06-26-2023 Telephone encounter Sandra Archer [employer] Start: 06-24-2023 End: 06-24-2023 ambulatory Sandra Archer Other [employer] Other Start: 06-24-2023 Office outpatient vi sit 25 minutes Sandra Archer [facility] Start: 06-24-2023 Telephone encounter Sandra Archer [facility] Start: 06-23-2023 End: 06-23-2023 ambulatory Sandra Archer Other [facility] [employer] Other Start: 06-23-2023 Encounter by cesar Archre [facility] Start: 03-04-2023 End: 03-05-[address] LORRAINE PATEL . Facility:[facility] Start: 12-24-2022 End: 12-25-[address] LORRAINE PATEL . Facility:[facility] Start: 12-19-2022 End: 12-20-[address] LORRAINE PATEL . Facility:[facility] Start: 08-15-2022 End: 08-15-2022 Jose Sue Work Phone: [facility] [place] Start: 08-09-2022 End: 08-10-[address] LORRAINE PATLE . Facility:[facility] Start: 07-17-2021 End: 07-17-2021 Office outpatient visit 15 minutes Hansel Momin Work Phone: [facility] [place] Start: 06-28-2020 End: 06-28-2020 Hansel Momin Work Phone: [facility] [place] Start: 12-29-2019 End: 12-29-2019 Hansel Momin Work Phone: [facility] [place] Start: 06-23-2019 End: 06-23-2019 Hansel Momin Work Phone: [facility] [place] Start: 03-10-2019 End: 03-10-2019 Hansel Momin Work Phone: [facility] [place] Start: 01-27-2019 End: 01-27-2019 Hansle Momin Work Phone: [facility] [place] Start: 01-27-2019 End: 01-27-2019 Postop follow up visit related to original px Alex Thorne MD [facility] Start: 01-13-2019 End: 01-13-2019 Postop follow up visit related to original px Alex Thorne MD [facility] Start: 01-13-2019 End: 01-13-2019 Hansel Momin Work Phone: [facility] [place] Start: 12-17-2018 End: 12-17-2018 David Castillo Work Phone: [facility] Start: 12-17-2018 End: 12-17-2018 Postop follow up visit related to original px Alex Thorne MD [facility] Start: 12-10-2018 End: 12-10-2018 Postop follow up visit related to original px Alex Syed Walker MD [facility] Start: 12-10-2018 End: 12-10-2018 David Castillo Work Phone: [facility] [place] Start: 12-09-2018 End: 12-09-2018 David Castillo Work Phone: [facility] Start: 12-09-2018 End: 12-09-2018 [facility] Start: 12-06-2018 End: 12-06-2018 Office outpatient visit 40 minutes David Csatillo Work Phone: [facility] Start: 03-11-2018 End: 03-11-2018 Hansel Momin Work Phone: [facility] [place] Start: 03-12-2017 End: 03-12-2017 Hansel Momin Work Phone: [facility] [place] Start: 03-13-2016 End: 03-13-2016 Hansel Galarzabs Work Phone: [facility] [place] Start: 03-15-2015 End: 03-15-2015 Hansel Galarzabs Work Phone: [facility] [place] Start: 03-16-2014 End: 03-16-2014 Hansel Momin Work Phone: [facility] [place] Start: 03-17-2013 End: 03-17-2013 Hansel Momin Work Phone: [facility] [place] Start: 03-15-2013 End: 03-15-2013 Tayler Blount Work Phone: [facility] [place] Procedures Date Procedure Procedure Detail Performing Clinician Start: 08-20-2024 End: 08-20-2024 Computerized ophthalmic imaging retina Alex Thorne Start: 01-16-2024 Quick Strep (POC) Start: 08-13-2023 End: 08-13-2023 Computerized ophthalmic imaging retina Alex Thorne MD Start: 08-15-2022 End: 08-15-2022 Computerized ophthalmic imaging retina Alex Thorne MD Start: 08-09-[address] LORRAINE LOPEZ . Comment on above: Performed By: #### P SAD #### [facility] [address] [place] [address] Dr. Day Davis Start: 07-17-2021 End: 07-17-2021 Computerized ophthalmic imaging retina Alex Thorne MD Start: 07-17-2021 End: 07-17-2021 Fundus Photos No Charge Bilateral Alex Thorne MD Start: 06-28-2020 End: 06-28-2020 Computerized ophthalmic imaging retina Alex Thorne MD Start: 12-29-2019 End: 12-29-2019 Computerized ophthalmic imaging retina Alex Thorne MD Start: 06-23-2019 End: 06-23-2019 Computerized ophthalmic imaging retina Alex Thorne MD Start: 03-10-2019 End: 03-10-2019 Computerized ophthalmic imaging retina Alex Thorne MD Start: 12-09-2018 End: 12-09-2018 Rpr retinal dtchmnt w/vitrectomy any meth Alex Thorne MD Start: 12-09-2018 POC GLUCOSE FINGERSTICK DAVID CASTILLO Start: 12-09-2018 ASSESS DAVID CAGLE HI Start: 12-09-2018 BEDREST DAVID GONZALEZ Start: 12-09-2018 Continuous pulse oximetry DAVID CASTILLO Start: 12-09-2018 ENCOURAGE DEEP BREAT MARSHAL AND COUGHING DAVID CASTILLO Start: 12-09-2018 INITIATE OXYGEN THER APY PROTOCOL DAVID CASTILLO Start: 12-09-2018 NOTIFY PHYSICIAN (SPECIFY) DAVID CASTILLO Start: 12-09-2018 NURSING COMMUNICATION Chastity CASTILLO Start: 12-09-2018 TELEMETRY MONITORING BONNY CASTILLO Start: 12-09-2018 VITAL SIGNS DAVID GONZALEZ Start: 12-09-2018 DISCHARGE PATIENT KARIME CASTILLO Start: 12-09-2018 EKG 12-LEAD DAVID GONZALEZ Start: 12-09-2018 CREATININE W/GFR POI NT OF CARE DAVID CASTILLO Start: 12-09-2018 INITIATE OXYGEN THER APY PROTOCOL DAVID CASTILLO Start: 12-09-2018 NOTIFY PHYSICIAN (SPECIFY) DAVID CASTILLO Start: 12-09-2018 POC CHEM8 INCLUDES C ALC. ANION GAP DAVID CASTILLO Start: 12-09-2018 POCT GLUCOSE DAVID GONZALEZ Start: 12-09-2018 VITAL SIGNS DAVID GONZALEZ Start: 12-06-2018 End: 12-06-2018 Fundus photography w/interpretation & report Alex Thorne MD Start: 03-11-2018 End: 03-11-2018 Computerized ophthalmic imaging retina Alex Thorne MD Start: 03-12-2017 End: 03-12-2017 Computerized ophthalmic imaging retina Alex Thorne MD Start: 03-13-2016 End: 03-13-2016 Computerized ophthalmic imaging retina Alex Thorne MD Start: 03-15-2015 End: 03-15-2015 Computerized ophthalmic imaging retina Alex Thorne MD Start: 03-16-2014 End: 03-16-2014 [facility] medical xm&eval comprhnsv estab pt 1/> Alex Thorne MD Start: 03-17-2013 End: 03-17-2013 [facility] xm&eval comprhnsv estab pt 1/> Alex Thorne MD Plan of Treatment Date Care Activity Detail Author Start: 10-27-2025 End: 10-27-2025 Patient encounter procedure 10/27/2025 3:30 PM EST Office Visit [facility] [address] [place] [address] Natalee Mariee MD [address] [place] [address] [facility] Start: 08-25-2025 Joceline Caraballo les / 1yr DFE OCT COLORS [facility] Work Phone: Start: 12-13-2024 Patient referral [facility] Work Phone: Start: 10-28-2024 End: 10-28-2024 Patient encounter procedure 10/28/2024 3:30 PM EST Office Visit [facility] [address] [place] [address] Natalee Mariee MD [address] [place] [address] Arrived [facility] Comment on above: Arrived Start: 07-11-2024 Influenza vaccination Influenza Vacc ine (#1) [facility] Start: 07-17-2021 Smoking cessation education Tobacco cessation counseling [facility] Start: 12-29-2019 Smoking cessation education Tobacco cessation counseling [facility] Start: 06-23-2019 Patient Education Health Infor mation for You: [employer]~ [facility] Work Phone: Start: 06-23-2019 Smoking cessation education Tobacco cessation counseling [facility] Start: 01-27-2019 Smoking cessation education Tobacco cessation counseling [facility] Start: 2017 Pneumococcal Vaccine : 65+ Years (1 of 1 - PCV) Pneumococcal Vaccine: 65+ Years (1 of 1 - PCV) [facility] Start: 03-12-2017 Smoking cessation education Tobacco cessation counseling [facility] Start: 1950 Screening for malign ant neoplasm of colon [facility] Comprehensive metabo lic 2000 panel - Serum or Plasma [facility] Microalbumin [Mass/volume] in Urine [facility] Patient referral [facility] Work Phone: [facility] Immunizations Immunization Date Immunization Notes Care Provider Fa cility 03-04-2023 tetanus toxoid, reduced diphtheria toxoid, and acellular pertussis vaccine, adsorbed Natalee Mariee MD Work Phone: [facility] 05-30-2021 Pfizer Purple Cap SARS-CoV-2 Vaccination Natalee Mariee MD Work Phone: [facility] 05-03-2021 Pfizer Purple Cap SARS-CoV-2 Vaccination Natalee Mariee MD Work Phone: [facility] Shingrix 50 MCG/0.5M L; Translations: [Shingrix 50 MCG/0.5ML] Sandra Archer Other [employer] Other Payers Date Payer Category Payer Private Health Insurance [employer]IE [id number] 2017 Medicare MEDICARE [id number] 2014 Medicare [id number] 1957 Medicare [id number] 1959 Self-pay [id number] 1959 Unknown [id number] 1952 Unknown [id number] .[id number] 1952 Unknown [id number] .[id number] 1952 Unknown [id number] .[id number] 1952 Unknown [id number] .[id number] 1952 Unknown [id number] .[id number] 1952 Unknown [id number] .[id number] 1952 Unknown [id number] .[id number] 1952 Unknown [id number] .[id number] 1952 Unknown [id number] .[id number] Social History Date Type Detail Facility Unknown if ever smoked [place] [employer] Other Start: 11-18-2023 End: 10-28-2024 Sex Assigned At [facility] [employer] Other Start: 01-16-2024 End: 01-16-2024 Tobacco smoking status [facility] Never smoked tobacco (finding) [facility] Start: 1950 Sex Assigned At Male F [facility] Start: 09-10-2023 Tobacco smoking stat us INIS Ex-smoker [facility] Start: 04-10-1966 End: 10-16-1987 History of tobacco use Current smoker [facility] Start: 04-10-1966 End: 10-16-1987 History of tobacco use Cigarette Smoker [facility] Start: 09-10-2023 End: 10-28-2024 Cigarettes smoked current (pack per day) - Reported 1 [facility] Start: 09-10-2023 Tobacco use and exposure Smokeless tobacco non-user [facility] Start: 11-18-2023 End: 10-28-2024 Alcoholic beverage intake Ex-drinker (finding) [facility] Start: 09-10-2023 Tobacco Comment quit in 1986 [facility] Start: 09-10-2023 Alcohol Comment drinks on rare occasions 6 or 7 months ago had about 3 beer [facility] Start: 1950 Sex assigned at Not on file [facility] Start: 10-27-2024 Tobacco smoking stat us INIS Unknown if ever smoked [facility] Start: 10-27-2024 Alcohol intake Alcohol Use Details [facility] Start: 12-13-2024 Sex Male (finding) [facility] Clinical Notes 06-23-2023 to 10-28-2024 Natalee Mariee MD - 10/28/2024 3:30 PM EST Note Date & Type Note Facility 10-28-2024 History of Presen t illness Narrative Skin Check Location: Patient requests a full body skin examination Dermatologic history: history of Melanoma on the right abdomen (1991), patient reports he only had an excision Last visit: 1 year ago Established patient All pertinent medical history, medications, and allergies were reviewed. General Exam: alert, oriented to person, place, and time, normal affect, well appearing Unaccompanied Scalp, Examined Right leg Examined Head, Face Examined Left leg Examined Neck Examined Right foot Examined Chest Examined Left foot Examined Back Examined Buttocks Examined Abdomen Examined Digits,nails: Examined Right arm Examined Left arm Examined Lymphatics: Examined Hands Examined no cervical lymphadenopathy, no supraclavicular lymphadenopathy, no axillary lymphadenopathy 1. Seborrheic keratosis (2) Left Arm, Right Arm Stuck on verrucous, cordero-brown papules and plaques. Patient was counseled regarding these benign growths. Removal is normally not necessary, but they may be removed if they are symptomatic or for cosmetic reasons. 2. Lentigines (3) Head - Anterior (Face), Left Arm, Right Arm Scattered cordero macules in sun-exposed areas. The patient was informed that lentigines are benign pigmented lesions that occur on sun-exposed and sun-damaged skin. No treatment is necessary. Recommended regular use of broad spectrum sunscreen SPF 30 or higher 3. Melanocytic nevus of trunk (3) Abdomen (Lower Torso, Anterior), Chest (Upper Torso, Anterior), Torso - Posterior (Back) Scattered benign appearing, regular brown to light brown melanocytic papules and macules with similar morphology Counseled regarding these benign growths. Rarely, a nevus can develop into malignant melanoma, so any changing nevi should be promptly re-evaluated. 4. Dermatofibroma Right Thigh - Anterior Firm brown papule that dimples with lateral pressure. Discussed that these are benign scars on the skin. If lesion is changing/symptomatic, return to office to have lesion re-evaluated 5. History of malignant melanoma of skin Right Abdomen (side) - Upper No evidence of recurrence at melanoma scar. The patient was counseled that scars from excisional sites of melanoma should be monitored closely for recurrence. The patient was instructed to contact the office for any new, changing, or symptomatic moles. The patient was also instructed to contact the office for any new lesions that develop within or around the previous melanoma scar. Next Visit: 1 year skin check documented in this encounter [facility] 09-16-2024 Evaluation note Diagnosis Onset Date Resolution Essential (primary) hypertension acute September 16 9:20am Hyperlipidemia acute September 162023 9:20am KAYLYNN (obstructive sleep apnea) acute September 16 9:20am Type 2 diabetes mellitus with hyperglycemia, without long-term current use acute September 16 9:20am Bilateral knee pain acute u 2024 9:14am [facility] Work Phone: 1(587) 623-204810-11-2024 History of Present illness Narrative* Encounter Date Complaint History Of Prese nt Illness RD (multiple - repaired) The 74 year old male presents for evaluation of RD (multiple - repaired) in the right eye and left eye. Patient reports vision is stable with glasses. States in the mornings he has trouble focusing for a few hours. Reports he has always had distorted vision OD. Floater OS that are minimal and intermittent. Denies ocular pain. Patient wears C-PAP at night and struggled with swollen lower lids. Patient will use artificial tears PRN. retinal detachment The 73 year o ld patient presents for evaluation of retinal detachment in the left eye. Patient reports stable vision since last visit. Patient denies flashes, floaters, and eye pain. Retinal detachment The 72 year o ld male presents for 1 year evaluation. Patient denies any VA changes . Patient states he still has the occasional floaters, but denies any flashes of light. 1 yr fu due to retin al detachment w/ single break The 71 year old male is present for her 1 yr fu due to retinal detachment w/ single break OS. Stable vision The patient stat es his vision has been stable in the last year. He states he has very mild floaters that come about every so often. They have not changed in shape, size or frequency in the last year. The condition is unchanged. The condition is associated with daily activities and chores. The patient denies eye pain and flashes. repaired RD The 70 year old male presents for evaluation of repaired RD in the left eye, and diabetic evaluation in both eyes. stable vision The patient is p resent for evaluation of stable vision in the right and left eyes since his last visit about 6 month(s) ago. It occurs constantly. It affects both near and distance vision. The symptom is all of the time. history of a RD repair The 69 ye ar old male presents for a history of a RD repair in the left eye. S/P Vit on 12/09/18 in the left eye. S/P Vit/SB in the right eye for other RD. Also, macular pucker in both eyes. stable vision The patient repo rts stable vision in both eyes since last visit 6 months ago. It occurs constantly. It affects both near and distance vision. The symptom is all of the time. In addition, the condition is associated with daily activities and chores. Patient denies flashes and floaters. Patient reports he thinks he is getting reflections due to fluttering intermittently in the left eye not affecting the vision x 6 months (unchanged). Retinal detachment The 69 year o ld male presents for retinal detachment with single break in the left eye. improved vision The patient repo rts improved vision in both eyes since last visit about 3 month(s) ago. It occurs constantly. It affects both near and distance vision. In addition, the condition is associated with daily activities and chores. Patient reports intermittent reflections (appears to be fluttering of liquid in the left eye can be due to the lighting). Patient denies floaters and flashes. treated RD The 68 year old male presents for evaluation of treated RD in the left eye. The patient reports improved vision since last exam 6 weeks ago. It affects both near and far vision. The symptom is constant. In addition, the condition is associated with daily activity and chores. Patient denies eye pain and flashes. stable vision The patient repo rts stable vision in the left eye since last visit about 2 weeks ago. It occurs all the time. It affects both near and far vision. In addition, the condition is associated with daily activity and chores. Patient reports that the bubble in the left eye has gotten smaller. Patient denies floaters and flashes. Patient reports no vision changes in the right eye. retinal detachment The 68 year o ld male presents for retinal detachment with single break in the left eye. S/P repair of macula off retinal detachment 12/09/2018 patient fell the patient repo rts that he tripped over a table last Friday but did not hit his head or eye. The patient has not noticed any vision changes, however he did notice the inferior bubble broke into 2 but has now gone back to one. The patient denies all other ocular symptoms. treated RD The 68 year old male presents for evaluation of treated RD in the left eye. The patient reports improved vision since last exam 4 weeks ago. It affects both near and far vision. The symptom is constant. Patient denies flashes and eye pain. slightly improved vision The pat ient reports slightly improved vision in the left eye since last visit about 1 week ago. It occurs all the time. It affects both near and far vision. Patient denies flashes and floaters. treated retinal detachment The 8 6 year old male presents for evaluation of treated retinal detachment in the left eye. Retinal Detachment The 68 year o ld male presents for evaluation of treated Retinal Detachment in the left eye. denies ocular pain The patient i s present for evaluation of denies ocular pain in the left eye this morning. left cobwebs The 68 year old male presents for evaluation of left cobwebs in the left eye. It started about 8 hour ago. It occurs all the time. The onset was sudden. It affects vision inferiorly. The symptom is constant. The condition is moderate. The condition is described as black spots. In addition, the condition is associated with daily activity and chores. Patient denies eye pain. Associated symptoms include: decrease in peripheral vision, floaters and flashes. Follow Up of Retinal detachment The patient is present for evaluation of Follow Up of Retinal detachment in the right eye. It started about since years ago. It occurs all the time. The onset was gradual. It affects both near and far vision. The symptom is constant. The condition is severe. The condition is described as fuzzy vision. In addition, the condition is associated with daily activity and chores. Patient denies eye pain. Associated symptoms include: decreased vision. denies vision changes Patient re pports decrease in floaters. The patient denies vision changes in the right and left eye since last visit about 1 year ago . It affects both near and far vision. The symptom is constant. It occurs all the time. The condition is stable. In addition, the condition is associated with daily activity and chores. The patient denies flashes, eye pain. history of recurrent retinal detachment The 67 year old male presents for evaluation of history of recurrent retinal detachment in the right eye. improvement in floaters The joseluis ent reports an improvement in floaters in the left eye. It started about 1 year ago. The onset was gradual. Vision is not affected. The symptom is intermittent. The condition is improving. In addition, the condition is associated with daily activity and chores. The patient denies flashes. history of multiple RD This 66 y ear old male presents for retinal eval of repaired recurrent RD in the right eye. decreased vision The patient rep orts that his right eye vision remains limited. He states that he only uses his better seeing left eye. He denies vision changes, flashes, and eye pain in both eyes since his last visit about one year ago. floaters The patient repo rts left eye floaters which are not new or worsening. They are mild and intermittent. 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 Monocular patient. (Most recent Vit OD 2008.) increased vision The patient rep orts increased vision in the right eye. Itit has improved since his last visit 1 year ago . The increase was gradual. It affects distance vision. The vision is constant. The increase is moderate. In addition, the condition is associated with all activity. Old Retinal Detachment The 63 ye ars old male presents for evaluation of Old Retinal Detachment in the right eye. [facility] Work Phone: [phone] Instructions* Date Instruction Additional Infor roelion Oct- Impression/Plan Related to Retin al detachment with single break, left eye Oct- Impression/Plan Related to Other retinal detachments Oct- Impression/Plan 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, bilateral Oct- Impression/Plan Related to Pseud ophakia Oct- Impression/Plan Related to Type 2 diabetes mellitus without complications Oct Impression/Plan Related to Essen tial (primary) hypertension Oct- Impression/Plan Related to Essen tial (primary) hypertension Oct- Impression/Plan Related to Pseud ophakia Oct- Impression/Plan Related to Type 2 diabetes mellitus without complications Oct- Impression/Plan 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, bilateral Oct- Impression/Plan Related to Other retinal detachments Oct- Impression/Plan Related to Retin al detachment with single break, left eye Oct- Impression/Plan Related to Essen tial (primary) hypertension Oct- Impression/Plan Related to Type 2 diabetes mellitus without complications Oct- Impression/Plan Related to Prese nce of intraocular lens Oct- Impression/Plan 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, bilateral Oct- Impression/Plan Related to Other retinal detachments Oct- Impression/Plan Related to Retin al detachment with single break, left eye Return in 1 year karen Momin MD for follow up and OCT Related to Retinal detachment with single break, left eye Impression/Plan Related to Essen tial (primary) hypertension Impression/Plan Related to Retin al detachment with single break, left eye Impression/Plan Related to Type 2 diabetes mellitus without complications Impression/Plan Related to Prese nce of intraocular lens Impression/Plan 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, bilateral Impression/Plan Related to Other retinal detachments Return in 1 year wit sergo Momin MD for follow up and OCT Related to Retinal detachment with single break, left eye Impression/Plan Related to Retin al detachment with single break, left eye Impression/Plan 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 Related to Retinal detachment with single break, left eye Impression/Plan Related to Type 2 diabetes mellitus without complications Impression/Plan Related to Prese nce of intraocular lens Impression/Plan Related to Hyper tension Impression/Plan Related to Retin al detachment with single break, left eye Impression/Plan 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, bilateral Return in 6 months w marine Momin MD for follow up exam and OCT. 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 Related to Retinal detachment with single break, left eye Impression/Plan Related to Retin al detachment with single break, left eye Impression/Plan Related to Other retinal detachments Impression/Plan 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, right eye Impression/Plan Related to Retin al edema Impression/Plan Related to Type 2 diabetes mellitus without complications Impression/Plan Related to Prese nce of intraocular lens Return in 4-[address] Momin for post op exam. Dilate OS only. Related to Retinal detachment with single break, left eye Impression/Plan Related to Retin al detachment with single break, left eye Return in [address] Momin for post op exam. Related to Retinal detachment with single break, left eye Impression/Plan Related to Retin al detachment with single break, left eye 1 month Related to Retin al detachment with single break, left eye Impression/Plan Related to Retin al detachment with single break, left eye Impression/Plan Related to Retin al detachment with single break, left eye Return in 3 days wit sergo Castillo for surgical repair, [facility] at 9:30. Related to Retinal detachment with single break, left eye Impression/Plan Related to Other retinal detachments Impression/Plan Related to Retin al edema Impression/Plan 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, right eye Impression/Plan Related to Prese nce of intraocular lens Impression/Plan Related to Type 2 diabetes mellitus without complications Impression/Plan Related to Retin al detachment with single break, left eye Return in 1 year karen Momin for follow up exam and OCT. Related to Puckering of macula, right eye Impression/Plan - RI GHT EYE: Macular Pucker was noted on examination today and explained to the patient. The pucker is not inducing vision loss or distortion that is severe enough to warrant surgical risk. I have counseled for observation at the current level of vision, and the patient will self-monitor and let us know if there is any progressive vision loss or worsening metamorphopsia. If either symptom progresses, we can always consider vitreous surgery at a later date. Appropriate follow up with primary eye hemodialysis patient care specialist was recommended. Related to Puckering of macula, right eye Follow up - Return i n [address] Momin for follow up exam and OCT. Related to Puckering of macula, right eye Impression/Plan - We ll positioned IOL noted. I have stressed the importance of regular follow-ups with the patient's primary eye hemodialysis patient care specialist. Related to Presence of intraocular lens Impression/Plan - No evidence of Diabetic Retinopathy was noted on examination today. The patient has been informed of the risks of Diabetic Retinopathy and the importance of maintaining blood sugar control. The patient was advised of the necessity of follow up compliance with the PCP/Labeler. Diabetic letter sent. Related to Type 2 diabetes mellitus without complications Impression/Plan - RI GHT EYE: Secondary to ERM, see plan #1. Related to Retinal edema Impression/Plan - RI GHT EYE: Retina is attached and stable with good silicone fill s/p Vitrectomy and scleral buckle. Will continue to observe condition and or symptoms. Advised patient to call with any changes prior to next scheduled appointment. Related to Other retinal detachments Return in [address] Momin for follow up and OCT. Related to Other retinal detachments Impression/Plan - RI GHT EYE: Secondary to ERM, see plan #2. Related to Retinal edema Impression/Plan - RI GHT EYE: Stable Macular Pucker was noted on examination today and was explained to the patient. No surgical intervention is indicated. Will continue to monitor. Related to Puckering of macula, right eye Impression/Plan - RI GHT EYE: Retina is attached and stable with good silicone fill s/p Vitrectomy and scleral buckle. Will continue to observe condition and or symptoms. Advised patient to call with any changes prior to next scheduled appointment. Related to Other retinal detachments Follow up - Return i n [address] Momin for follow up and OCT. Related to Other retinal detachments Impression/Plan - We ll positioned IOL noted. I have stressed the importance of regular follow-ups with the patient's primary eye hemodialysis patient care specialist. Related to Presence of intraocular lens - Return in 1 year w marine Momin for follow up exam with OCT. Related to Other retinal detachments - Retina is attached and stable with good silicone fill s/p Vitrectomy and scleral buckle. Will continue to observe condition and or symptoms. Advised patient to call with any changes prior to next scheduled appointment. Related to Other retinal detachments - Well positioned in traocular lens implant were noted. I have stressed the importance of regular follow-ups with the patient's primary eye hemodialysis patient care specialist. Related to Presence of intraocular lens - Secondary to ERM, see plan #2 Related to Retinal edema - Stable Macular Puc ker was noted on examination today and was explained to the patient. No surgical intervention is indicated. Will continue to monitor. Related to Puckering of macula, right eye - Retina attached an d stable with good silicone fill s/p Vitrectomy and scleral buckle. Will continue to observe condition and or symptoms. No treatment is required at this time. Advised patient to call with any changes prior to next scheduled appointment. Related to Old retinal detachment, partial - Return in 1 year w marine Momin for follow up exam with OCT. Related to Old retinal detachment, partial - Posterior vitreous detachment was noted in the left eye on examination today and explained to the patient. There is no evidence of a retinal tear, break or detachment. . Patient instructed to call the office immediately if any symptoms noted. Recommend the patient return to office for follow up. Appropriate follow up with primary eye hemodialysis patient care specialist was recommended. Related to PVD (Vitreous degeneration) - Will continue to o bserve condition and or symptoms. Related to Retinal edema - Stable Macular Puc ker was noted on examination today and explained to the patient. The pucker is not inducing vision loss or distortion that is severe enough to warrant surgical risk. I have counseled for observation at the current level of vision; patient is also esotropic. If condition progresses, we can always consider vitreous surgery at a later date. Appropriate follow up with primary eye hemodialysis patient care specialist was recommended. Related to Macular puckering of retina - Posterior vitreous detachment was noted in the left eye on examination today and explained to the patient. There is no evidence of a retinal tear, break or detachment. . Patient instructed to call the office immediately if any symptoms noted. Recommend the patient return to office for follow up. Appropriate follow up with primary eye hemodialysis patient care specialist was recommended. Related to PVD (Vitreous degeneration) - Will continue to o bserve condition and or symptoms. Related to Retinal edema - Macular Pucker was noted on examination today and explained to the patient. The pucker is not inducing vision loss or distortion that is severe enough to warrant surgical risk. I have counseled for observation at the current level of vision; patient is also esotropic. If condition progresses, we can always consider vitreous surgery at a later date. Appropriate follow up with primary eye hemodialysis patient care specialist was recommended. Related to Macular puckering of retina - Return in [address] Momin for follow up and OCT. Related to Old retinal detachment, partial - Stable with retina attached and good silicone fill s/p Vitrectomy and scleral buckle. Will continue to observe condition and or symptoms. No treatment is required at this time. Advised patient to call with any changes prior to next scheduled appointment. Related to Old retinal detachment, partial PVD (Vitreous degene ration) OU Condition: mild, chronic, stable OS; s/p Vitrectomy OD. - Posterior vitreous detachment was noted in the left eye on examination today and explained to the patient. There is no evidence of a retinal tear, break or detachment. . Patient instructed to call the office immediately if any symptoms noted. Recommend the patient return to office for follow up. Appropriate follow up with primary eye hemodialysis patient care specialist was recommended. Related to PVD (Vitreous degeneration) Esotropia, unspecifi ed OD Condition: established, stable. Related to Esotropia, unspecified Retinal edema OD Con dition: mild, chronic, stable. - Will continue to observe condition and or symptoms. Related to Retinal edema Pseudophakia OU Condition: stabl e. Related to Pseudophakia - Return in [address] Momin for follow up exam and OCT. Related to Old retinal detachment, partial Old retinal detachme nt, partial OD Condition: severe, chronic, stable. - Stable with retina attached and good silicone fill s/p Vitrectomy and scleral buckle. Reassured patient of current condition and treatment. Will continue to observe condition and or symptoms. No treatment is required at this time. Advised patient to call with any changes prior to next scheduled appointment. Related to Old retinal detachment, partial [facility] Work Phone: [phone]) 172-280412-26-2023 Evaluation note* Encounter Date Diagnosis Assessment Notes Treatment Notes Treatment Clinical Notes Oct, Type 2 diabetes mellitus with hyperglycemia, without long-term current use of insulin (ICD-10 - E11.65) [employer] Other 12-26-2023 Evaluation note* Encounter Date Diagnosis Assessment Notes Treatment Notes Treatment Clinical Notes Oct, Essential (primary) hypertension (ICD-10 - I10) [employer] Other 11-15-2023 Evaluation note* Encounter Date Diagnosis Assessment Notes Treatment Notes Treatment Clinical Notes Sep, Medicare annual wellness visit, subsequent [...] symptoms. Any developing patterns. Stay well hydrated. [employer] Other 09-28-2023 Evaluation note* Encounter Date Diagnosis Assessment Notes Treatment Notes Treatment Clinical Notes Jul, Type 2 diabetes mellitus with [...] lot of episodes on the recent test. [employer] Other 08-15-2023 Evaluation note* Encounter Date Diagnosis Assessment Notes Treatment Notes Treatment Clinical Notes Jun, Mixed hyperlipidemia (ICD-10 - E78.2) recheck labs later this year. 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 Family has encouraged him to eval this. Jun, Sleep apnea, unspecified type (ICD-10 - G47.30) Handwrote referral to [facility] for testing. Jun, Type 2 diabetes mellitus with hyperglycemia, without long-term current use of insulin (ICD-10 - E11.65) Labs much improved - continue healthy diet and meds with freestyle meter. [employer] Other 08-15-2023 Evaluation note* Encounter Date Diagnosis Assessment Notes Treatment Notes Treatment Clinical Notes Jun, Mixed hyperlipidemia (ICD-10 - E78.2) recheck labs later this year. 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 Family has encouraged him to eval this. Jun, Sleep apnea, unspecified type (ICD-10 - G47.30) Handwrote referral to [facility] for testing. Family states he snores and he is often fatigued. Jun, Type 2 diabetes mellitus with hyperglycemia, without long-term current use of insulin (ICD-10 - E11.65) Labs much improved - continue healthy diet and meds with freestyle meter. [employer] Other 08-14-2023 Evaluation note* Encounter Date Diagnosis Assessment Notes Treatment Notes Treatment Clinical Notes Jun, Type 2 diabetes mellitus with hyperglycemia, without long-term current use of insulin (ICD-10 - E11.65) [employer] Other Consult note* Clinical Note Date No Information [facility] Work Phone: Discharge summary* Clinical Note Date No Information [facility] Work Phone: Evaluation noteNo InformationNort [employer] Other Evaluation note* Diagnosis Onset Date Resolution Status Maxillary sinusitis acute Screening PSA (prostate specific antigen) acute [id number] [facility] Work Phone: Evaluation note* Diagnosis Onset Date Resolution Status Essential (primary) hypertension acute Hyperlipidemia acute Hypertension acute [id number] [facility] Work Phone: Evaluation note* Diagnosis Seborrheic keratosis- Primary Lentigines Melanocytic nevus of trunk Benign neoplasm of skin of trunk, except scrotum Dermatofibroma Benign neoplasm of skin, site unspecified History of malignant melanoma of skin Personal history of malignant melanoma of skin documented in this encounter [facility] Type Assessment Date No Information [facility] Work Phone: History and physical note* Clinical Note Date No Information [facility] Work Phone: History general Narrative - Reported* Type Description Date Medical History hyperlipidemia Medical History hypertension Medical History type II diabetes Medical History hay fever Surgical History Retinal Surgery Surgical History melanoma Surgical History cataract Hospitalization History See Above [employer] Other Hospital Discharge instructionsAmbulatory Orders* Referral to Orthopedics Time Frame: 12/13/24, Location: None Selected [facility] Work Phone: Progress note* Clinical Note Date No Information [facility] Work Phone: Reason for referral (narrative)* Reason For Referral No Information [facility] Work Phone: Summary Purpose Family History Relationship Condition Age at Onset Recorded Date/T radha brother Diabetes mellitus Unknown father Unknown Diabetes mellitus Unknown Not Specified Diabetes mellitus Unknown Unknown Relationship Condition Age at Onset Recorded Date/T radha brother Diabetes mellitus Unknown father Unknown Diabetes mellitus Unknown mother Diabetes mellitus Unknown Unknown Family Member Type Diagnosis Age At Onset Father Problem (finding) Heart Disease Multiple Problem (finding) Diabetes mellitus Father Problem (finding) raised blood lipids Father Problem (finding) HBP Father Problem (finding) cataract Advance Directives Advance Directive Response Recorded Date/ Time Advance Directives No December 01, 2023 6:23pm Directive Yes / No Effective Date File Name No Information Advance Directive Response Recorded Date/ Time Advance Directives No December 01, 2023 5:23pm Reason for Referral Reason * 07/04 [facility]. 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) Referral Organization [facility] [employer] Referring Provider First Name Sandra Referring Provider Last Name Suzi Referring Provider Specialty [facility] [employer] Referred Organization [facility] Referred Provider Marisol Parada Referred Address ,[place], [place],[address] Referred Provider Specialty Otolaryngolo gy Referral Priority Routine General Notes Octavia Fabian 12:41:31 PM >received today, insurance attached, waiting for notes to be locked to fax Octavia Fabian 06/27/2023 11:15:25 AM >notes locked, referral faxed Reason [facility] e. 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) Referral Organization [facility] [employer] Referring Provider First Name Sandra Referring Provider Last Name Suzi Referring Provider Specialty [facility] [employer] Referred Organization [facility] Referred Provider Marisol Parada Referred Address ,[place], [place],[address] Referred Provider Specialty Ear, Nose an d Throat Referral Priority Routine General Notes Octavia Fabian 12:41:31 PM >received today, insurance attached, waiting for notes to be locked to fax Chief Complaint and Reason for Visit Chief Complaint Amb Documentation Head Cold-Stuffy nose 4 Month Check Up Reason for Visit Maxillary sinusitis Screening PSA (prostate specific antigen) [id number] Chief Complaint Amb Documentation 4 MONTH FOLLOW UP Reason for Visit Essential (primary) hypertension Hyperlipidemia Hypertension [id number] Chief Complaint Admit Date 4 month f/u September 16, 2024 9 :20am Wellness December 13, 2024 9 :14am Reason for Visit Admit Date Essential (primary) hypertension Novembe r 2023 9:20am Hyperlipidemia September 16, 2024 9 :20am KAYLYNN (obstructive sleep apnea) September 162023 9:20am Type 2 diabetes mellitus wit h hyperglycemia, without long-term current use September 16, 2024 9:20am Bilateral knee pain December 13, 2024 9 :14am Additional Source Comments (unrecognized sect ion and content) No Status Records FoundNo Status Records FoundNo Status Records FoundNo Status Records Found INFORMATION SOURCE (unrecogn ized section and content) DATE CREATED AUTHOR 12/28/2018 [facility] DATE CREATED AUTHOR AUTHOR'S ORGANIZ ATION 03/06/2023 [facility] DATE CREATED AUTHOR AUTHOR'S ORGANIZ ATION 11/01/2024 [facility] EPIC DATE CREATED AUTHOR AUTHOR'S ORGANIZ ATION 11/06/2024 [facility] REASON FOR VISIT (unrecogniz ed section and content) Reason Comments [facility] Teams (unrecognized sec tion and content) Team Status: Active Member Role Status Dates Sandra Archer MD Primary Care Provider Active Team Status: Inactive Member Role Status Dates Sandra Archer MD Primary Care Provide r, Attending Provider Active Start: September 16, 2024 End: September 16, 2024 Team Status: Inactive Member Role Status Dates Sandra Archer MD Primary Care Provide r, Attending Provider Active Start: December 13, 2024 End: December 13, 2024 Team Status: Active Member Role Status Dates [...] January 16, 2024 End: January 16, 2024 ALEX LeyvaC Attending Provider Act nael Start: January 16, 2024 End: January 16, 2024 Team Status: Inactive Member Role Status Dates Sandra Archer MD Primary Care Provide r, Attending Provider Active Start: January 26, 2024 End: January 26, 2024 Team Status: Active Member Role Status Dates Sandra Archer MD Primary Care Provider Active Start: March 05, 2024 ADRIAN Perez Attending Provider Active Start : March 05, 2024 Team Status: Inactive Member Role Status Dates Sandra Archer MD Primary Care Provide r, Attending Provider Active Start: May 27, 2024 End: May 27, 2024 [employer] Relationship Specialty Start Date End Date Sandra Archer MD [address] [place] [address] PCP - General Family Medicine 06/27/23 [employer] Relationship Specialty Start Date End Date Sandra Archer MD [address] [place] [address] PCP - General Family Medicine 06/27/23 Name Effective Dates (start - stop) Status Members No Information Team Status: Inactive Member Role Status Dates Sandra Archer MD Primary Care Provide r, Attending Provider Active Start: September 16, 2024 End: September 16, 2024 Team Status: Inactive Member Role Status Dates Sandra Archer MD Primary Care Provide r, Attending Provider Active Start: December 13, 2024 End: December 13, 2024 Goals (unrecognized section and content) Goals [...] BE BASED ON THE PRIMARY CLINICAL RECORDS. [facility] [employer] [facility]. provides no warranty or guarantee of the accuracy or completeness of information in this document.
== END 2024-12-27 09:37 | disposition home or self-care (01) ==
PROVIDERS: PCP Family Medicine; Visit Provider Orthopaedic Surgery
DX: M25.562 Pain in left knee (principal); M25.561 Pain in right knee; M17.0 Bilateral primary osteoarthritis of knee; M25.462 Effusion, left knee; M25.461 Effusion, right knee
CPT/HCPCS: 73564

== ENCOUNTER 2025-03-21 10:20 | Outpatient (OUT) | payer MEDICARE, OTHER, SELFPAY ==
[2025-03-21 10:49] LABS: Basophils Absolute Auto 0.1 10^3/uL (0.0-0.1); Basophils Percent Auto 0.8 % (0.2-2.0); Eosinophils Absolute Auto 0.2 10^3/uL (0.0-0.7); Eosinophils Percent Auto 3.1 % (0.9-7.0); Hematocrit 38.4 % (42.0-54.0); Hemoglobin 12.6 g/dL (14.0-18.0); Immature Granulocytes Abs Auto 0.02 10^3/uL (0.00-0.03); Immature Granulocytes Pct Auto 0.3 % (0.0-0.5); Lymphocytes Percent Auto 27.2 % (20.5-60.0); Mean Corpuscular HGB Conc 32.8 g/dL (29.9-35.2); Mean Corpuscular Hemoglobin 30.6 pg (25.9-34.0); Mean Corpuscular Volume 93.2 fL (80.0-94.0); Mean Platelet Volume 10.3 fL (9.5-13.5); Monocytes Absolute Auto 0.6 10^3/uL (0.3-0.8); Neutrophils Absolute Auto 4.4 10^3/uL (1.4-6.5); Neutrophils Percent Auto 60.6 % (43.0-75.0); Red Blood Count 4.12 10^6/uL (4.70-6.10); Red Cell Distribution Width 12.4 % (11.0-15.0); White Blood Count 7.2 10^3/uL (4.0-11.0)
--- OUTSIDE RECORDS SUMMARY | 2025-03-21 10:51 | XMS_ITS | CCD ---
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 Name Role Phone DAVID CASTILLO Admitting Unavailable DAVID CASTILLO Attending Unavailable PATELLORRAINE Primary Care Unavailable PATEL ., DR LORRAINE Ervin Admitting Unavailable PATEL ., DR LORRAINE Ervin Attending Unavailable PATEL ., DR LORRAINE Ervin Primary Care Unavailable PATEL ., DR LORRAINE Ervin Consulting Unavailable PATEL ., DR LORRAINE Ervin Primary Care Unavailable DAVID MITCHELL Admitting Unavailable DAVID MITCHELL Attending Unavailable DAVID MITCHELL Consulting Unavailable ESTER [...] ., DR LORRAINE Ervin Consulting Unavailable Sandra Lane Unavailable Sandra Lane MD Primary Care Provider NATALEE MARIEE Attending Unavailable Alex Thorne Attending Unavailable Dwayne Gutierrez Referring Unavailable Alex Thorne Attending Unavailable Alex Thorne MD Unavailable UnavailShane Angel II Attending UnavailShane Angel II Admitting UnavailSandra Rosa Primary Care Unavailable Sandra Lane MD Primary Care Provider [phone] Shane Cosme MD Attending Provider Allergies Allergy Classification Reported Allergen(s) Allergy Type Date of Onset Reaction(s) Facility (3 sources) Pollen Propensity to adverse reactions 9 [facility] Work Phone: Medications Current Medications Medication Drug Class(es) Dates Sig (Normalized) Sig (Original) Aspir-81 (12 sources) Aspir-81 Active aspirin 81 mg delayed release oral tablet (9 sources) Platelet Aggregation Inhibitor, Nonsteroidal Anti-inflammatory Drug Start: 08-20-2024 take 1 tablet by mouth once daily aspirin 81 mg tablet,delayed release take 1 tablet by oral route every day 81 MG - Active Start: 01-15-2024 take 1 capsule by mouth once d aily Aspirin 81 mg capsule Active 81 MG PO Daily January 15, 2024 1:00am take 1 tablet by joseph th in the morning ASPIRIN 81 PO Take 1 tablet by mouth in the morning. Active Continuous Blood Gluc Sensor (FreeStyle Michael 2 Sensor) misc (3 sources) Start: 07-18-2023 Continuous Blo [facility] Gluc [facility] (FreeStyle Michael 2 [facility]ensor[facility] 07/18/2023 Active Diclofenac (2 sources) Nonsteroidal Anti-inflammatory Drug Start: 01-14-2025 Diclofenac Sodium 1 % gel Active 2 GM TOPICAL .4-5 times a day as needed for knee pain 12 09January 14, 2025 1:00am Flash Glucose Sensor (Freestyle Michael 2 Sensor) kit (14 sources) Start: 11-11-2024 Flash Glucose Sensor (Freestyle Michael 2 Sensor) kit Active 0 .ROUTE .COMPLEX 2 November 11, 2024 2:22pm USE DIRECTED Start: 11-11-2024 Flash Glucose Sensor (Freestyle Michael 2 Sensor) kit Active 0 .ROUTE .COMPLEX 2 November 11, 2024 1:22pm USE DIRECTED Start: 06-21-2024 End: 11-11-2024 Flash Glucose Sensor (Freest yle Michael 2 Sensor) kit Discontinued 0 .ROUTE .COMPLEX 2 June 21, 2024 11:42am November 11, 2024 2:22pm USE DIRECTED Start: 06-21-2024 End: 11-11-2024 Flash Glucose Sensor (Freest yle Michael 2 Sensor) kit Discontinued 0 .ROUTE .COMPLEX 2 June 21, 2024 10:42am November 11, 2024 1:22pm USE DIRECTED Start: 03-06-2024 End: 06-21-2024 Flash Glucose Sensor (Freest yle Michael 2 Sensor) kit Discontinued 0 .ROUTE .COMPLEX 2 March 06, 2024 9:46pm June 21, 2024 11:42am USE DIRECTED Start: 03-06-2024 End: 06-21-2024 Flash [...] 1 SPRAY INTRANASAL Daily September 16, 2024 11:04am take 1 spray(s) nasa l route once [...] 90 days Active FreeStyle Michael 2 [place] - (12 sources) Start: 03-31-2023 FreeStyle Michael 2 [place] - as directed March, Active FreeStyle Michael 2 Sensor - (5 sources) FreeStyle Michael 2 Sensor - USE DIRECTED for 28 Active FreeStyle Michael Sensor (7 sources) Start: 03-31-2023 FreeStyle Michael Sensor March, Active meloxicam 15 mg oral tablet (2 sources) Nonsteroidal Anti-inflammatory Drug Start: 01-14-2025 take 1 tablet by mouth once daily Meloxicam 15 mg tablet Active 15 MG PO daily January 14, 2025 1:00am Multi Complete - (12 sources) Multi Complete - as directed Orally Active Multiple Vitamins-Minerals (Multi Complete) capsule (3 sources) take 1 tablet by mouth in the morning Multiple Vitamins-Minerals (Multi Complete) capsule Take 1 tablet by mouth in the morning. Active Multivitamin (Daily Multi-Vitamin) tablet (5 sources) Start: 01-15-2024 take 1 tablet by mouth once daily Multivitamin (Daily Multi-Vitamin) tablet Active 1 TAB PO Daily January 15, 2024 12:00am Start: 01-15-2024 take 1 tablet by joseph th once daily Multivitamin (Daily Multi-Vitamin) tablet Active 1 TAB PO Daily January 15, 2024 1:00am Multivitamin 50 Plus tablet (1 source) Start: 08-20-2024 Multivitamin 5 0 Plus tablet - Active niacin 500 mg oral tablet (20 sources) Nicotinic Acid Start: 01-15-2024 take 1 tablet by mouth twice daily Niacin 500 mg tablet Active 500 MG PO Twice daily January 15, 2024 1:00am niacin ER 500 mg tablet,extended release bid [...] with food Orally Once a day Active sertraline 25 mg oral tablet (20 sources) Serotonin Reuptake Inhibitor Start: 01-15-2024 take 1 tablet by mouth once daily Sertraline 25 mg tablet Active 25 MG PO Daily January 15, 2024 1:00am triamcinolone acetonide 1 mg/ml topical cream (3 [...] mg / clavulanate 125 mg oral tablet (5 sources) Penicillin-class Antibacterial Start: 01-16-2024 End: 01-26-2024 take 1 tablet by mouth twice daily Amoxicillin-Pot Clavulanate 875-125 mg tablet Discontinued 1 TAB PO Twice daily 14 January 16, 2024 1:00am January 26, 2024 9:32am atenolol 100 mg oral tablet (20 sources) beta-Adrenergic Wander Start: 01-06-2024 End: 09-16-2024 take 1 tablet by mouth once daily Atenolol 100 mg tablet Discontinued 100 MG PO Daily January 06, 2024 1:56pm September 16, 2024 11:05am glipiZIDE 5 mg oral tablet (20 sources) Sulfonylurea Start: 03-06-2024 End: 11-24-2024 take 1 tablet by mouth once daily 30 minutes before breakfast Glipizide 5 mg tablet Discontinued 0 .ROUTE .COMPLEX August 28, 2024 8:24am November 24, 2024 1:18pm TAKE 1 TABLET BY MOUTH 30 MINUTES BEFORE BREAKFAST ONCE DAILY Start: 01-26-2024 End: 03-06-2024 take 1 tablet by mouth twice daily Glipizide 5 mg tablet Discontinued 5 MG PO Twice daily January 26, 2024 9:33am March 06, 2024 9:46pm Start: 01-15-2024 End: 01-26-2024 take 1 tablet by mouth once daily Glipizide 5 mg tablet Discontinued 5 MG PO Daily January 15, 2024 1:00am January 26, 2024 9:35am glipizide 5 mg t ablet take 1/2 tablet (2.5MG) by oral route every day if sugar is greater than 160 - Active take 2 tablets by ut ut every twenty-four hours glipiZIDE 5 MG [...] twice daily Metformin 500 mg tablet Discontinued 0 .ROUTE .COMPLEX 120 October 04, 2024 5:58pm November 26, 2024 12:56pm TAKE 2 TABLETS BY MOUTH TWICE A DAY Start: 01-15-2024 End: 06-21-2024 take 2 tablets by mouth twice daily Metformin 500 mg tablet Discontinued 1000 MG PO Twice daily 180 May 27, 2024 10:33am June 21, 2024 11:42am Start: 01-15-2024 take 1000 mg by mout h twice daily Metformin Active 1000 MG PO Twice daily January 15, 2024 1:00am pravastatin sodium 40 mg oral tablet (20 sources) HMG-CoA Reductase Inhibitor Start: 01-06-2024 End: 09-16-2024 take 1 tablet by mouth once daily Pravastatin 40 mg tablet Discontinued 40 MG PO Daily 90 January 06, 2024 1:56pm September 16, 2024 11:05am Problems Active Problems Problem Classification Problem Date [...] melanoma of skin] Onset: 09-09-2023 09-09-2023 Episodic Osteoarthritis (2 sources) Primary gonarthrosis, bilateral; Translations: [Bilateral primary osteoarthritis of knee] 01-14-2025 Chronic Other aftercare (1 source) residential (current) use of aspirin; Translations: [RETIREMENT CURRENT USE OF ASPIRIN] Onset: 03-06-2023 Episodic Other aftercare (1 source) 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; 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] Onset: 03-06-2023 Episodic Other aftercare (1 source) Other retirement (current) drug therapy; Translations: [OTH RETIREMENT CURRENT DRUG THERAPY] Onset: 03-06-2023 Episodic Other and unspecified benign neoplasm (2 sources) Melanocytic nevus of trunk; Translations: [Melanocytic nevi of trunk] 10-28-2024 Episodic Other and unspecified benign neoplasm (2 sources) Dermatofibroma; Translations: [Other benign neoplasm of skin, unspecified] 10-28-2024 Episodic Other connective tissue disease (2 sources) Quadriceps weakness; Translations: [Muscle weakness (generalized)] 01-14-2025 Episodic Other connective tissue disease (1 source) Muscle weakness (generalized); Translations: [Muscle weakness (generalized)] 01-14-2025 Episodic Other ear and sense organ disorders (15 sources) Mixed conductive and sensorineural hearing loss, [...] HEAD INITIAL ENC] Onset: 03-04-2023 Episodic Other nervous system disorders (1 source) Other chronic pain; Translations: [Other chronic pain] Onset: 01-14-2025 Chronic Other non-traumatic joint disorders (7 sources) Pain in right knee; Translations: [Pain in both knees] Onset: 01-14-2025 12-13-2024 Episodic Other non-traumatic joint disorders (1 source) Pain in left knee; Translations: [Pain in left knee] Onset: 01-14-2025 Episodic Other screening for suspected conditions (not mental disorders or infectious disease) (6 sources) Patient encounter status; Translations: [Encounter for screening for malignant neoplasm of prostate] 01-26-2024 Episodic Other skin disorders (2 sources) Seborrheic keratosis; Translations: [Other seborrheic keratosis] 10-28-2024 Episodic Other skin disorders (2 sources) Lentiginosis; Translations: [Other melanin hyperpigmentation] 10-28-2024 Episodic Other upper respiratory infections (6 sources) Maxillary sinusitis; Translations: [Chronic maxillary sinusitis] 01-16-2024 Chronic Peripheral and visceral atherosclerosis (5 sources) Peripheral vascular disease, unspecified; Translations: [PERIPHERAL VASCULAR DISEASE UNS] Onset: 12-19-2022 Chronic Residual codes; unclassified (13 sources) Sleep apnea; Translations: [Sleep apnea, unspecified] Onset: 09-09-2023 09-09-2023 Chronic Residual codes; unclassified (2 sources) Sleep apnea, unspecified Chronic Residual codes; unclassified (15 sources) Obstructive sleep apnea syndrome; Translations: [Obstructive sleep apnea (adult) (pediatric)] 01-15-2024 Chronic Residual codes; unclassified (4 sources) Obstructive sleep apnea (adult) (pediatric); Translations: [...] Test Name Value Interpretation Reference Range Facility X-ray reportOrdered By: Pauline Morales on 01-14-2025 Study report [facility] [address] [place] [address] XRay Report Signed Patient: Hansel Caraballo MR#: [id number] : 1950 Acct:[id number] Age/Sex: 74 / M ADM Date: 5 Loc: [facility] Room: Type: [facility] Attending Dr: Shane Cosme II, MD Copies to: Shane Cosme MD~ Ordering Provider: Shane Cosme MD Date of Service: 01/14/25 XR/XR knee BI 4V: M25.561 - Pain in right knee ([id number]) XR/XR pelvis 1-2V: M25.561 - Pain in right knee CLINICAL DATA: Generalized progressive knee pain, greater with weightbearing. No reported injury. WEIGHTBEARING AP LOW PELVIS COMPARISON: None No acute fracture, dislocation or bony destruction is seen. The hip joint spaces are symmetric. There is no prominent hypertrophy. The SI joints are intact. There are no soft tissue abnormalities. XR/XR pelvis 1-2V IMPRESSION: NO ACUTE BONY FINDINGS. BILATERAL KNEES - 4 views each COMPARISON: 12/27/2024 Weightbearing AP, lateral, skiers and patellar views were obtained. There is noacute fracture or dislocation. No patellar subluxation is noted. There is mildgenu varum deformity with bilateral medial tibiofemoral joint compartment narrowing, left side slightly greater than right where there is bone to bone contact. Mild tricompartment marginal spurring is again seen. Small knee effusions are still noted. There is atherosclerotic disease. IMPRESSION: BILATERAL DEGENERATIVE CHANGES, LEFT SLIGHTLY WORSE THAN RIGHT. Impression dictated by: Gilma Morales M.D.01/14/2025 3:22 PM Dictation Location: [place] [address] Transcribed By: [facility] 01/14/25 1522 Dictated By: Gilma Morales MD 01/14/25 1515 Signed By: 01/14/25 1522 [facility] Work Phone: XR knee BI 4Von 01-14-2025 XR knee BI 4V [facility] [address] [place] [address] XRay Report Signed Patient: Hansel Caraballo MR#: [id number] : 1950 Acct:[id number] Age/Sex: 74 / M ADM Date: 01/14/25 Loc: [facility] Room: Type: [facility] Attending Dr: Shane Cosme II, MD Copies to: Shane Cosme MD Ordering Provider: Shane Cosme MD Date of Service: 01/14/25 XR/XR knee BI 4V: M25.561 - Pain in right knee ([id number]) XR/XR pelvis 1-2V: M25.561 - Pain in right knee CLINICAL DATA: Generalized progressive knee pain, greater with weightbearing. No reported injury. WEIGHTBEARING AP LOW PELVIS COMPARISON: None No acute fracture, dislocation or bony destruction is seen. The hip joint spaces are symmetric. There is no prominent hypertrophy. The SI joints are intact. There are no soft tissue abnormalities. XR/XR pelvis 1-2V IMPRESSION: NO ACUTE BONY FINDINGS. BILATERAL KNEES - 4 views each COMPARISON: 12/27/2024 Weightbearing AP, lateral, skiers and patellar views were obtained. There is no acute fracture or dislocation. No patellar subluxation is noted. There is mild genu varum deformity with bilateral medial tibiofemoral joint compartment narrowing, left side slightly greater than right where there is bone to bone contact. Mild tricompartment marginal spurring is again seen. Small knee effusions are still noted. There is atherosclerotic disease. IMPRESSION: BILATERAL DEGENERATIVE CHANGES, LEFT SLIGHTLY WORSE THAN RIGHT. Impression dictated by: Gilma Morales M.D.01/14/2025 3:22 PM Dictation Location: [place] [address] Transcribed By: [facility] 01/14/25 1522 Dictated By: Glima Morales MD 01/14/25 1515 Signed By: 01/14/25 1522 Normal [facility] HbA1c HPLC (Bld) [Mass fract ion]on 12-13-2024 HbA1c (Bld) [Mass fraction] Hemoglobin A1c/Hemoglobin.total in Blood by HPLC [facility] No Panel InformationOrdered By: Renuka Irizarry on 01-16-2024 Quick Strep (POC) [facility] CT CSPINE WO CONon 3 CT [...] ESTER MCCRAY Date: 2023-03-05 01:00 Normal [facility] CBC AUTO DIFFon 12-24-2022 BASO # 0.1 103/ul Normal 0.0-0.1 [facility] Comment on above: Performed By: #### C BC #### [facility] [address] [place] [address] [address] Day Davis Basophils/100 WBC (Bld) 0.9 % Normal 0.2-2.0 [facility] Comment on above: Performed By: #### C BC #### [facility] [address] [place] [address] Dr. Day Davis EO # 0.2 103/ul Normal 0.0-0.7 [facility] Comment on above: Performed By: #### C BC #### [facility] [address] [address] [address] Day Davis Eosinophils/100 WBC (Bld) 2.7 % Normal 0.9-7.0 [facility] Comment on above: Performed By: #### C BC #### [facility] [address] [place] [address] Dr. Day Davis Erythrocyte distribution width (RBC) [Ratio] 12.5 % Normal 11.0-15.0 [facility] Comment on above: Performed By: #### C BC #### [facility] [address] [place] [address] Dr. Day Davis Hematocrit (Bld) [Volume fraction] 40.7 % Critically low 42.0-54.0 [facility] Comment on above: Performed By: #### C BC #### [facility] [address] [place] [address] Dr. Day Davis Hemoglobin (Bld) [Mass/Vol] 13.9 g/dL Critically low 14.0-18.0 [facility] Comment on above: Performed By: #### C BC #### [facility] [address] [place] [address] Dr. Day Davis IG # 0.02 10e3/ul Normal 0.00-0.03 [facility] Comment on above: Performed By: #### C BC #### [facility] [address] [place] [address] Dr. Day Davis IG % 0.3 % Normal 0.0-0.5 [facility] Comment on above: Performed By: #### C BC #### [facility] [address] [place] [address] Dr. Day Davis LYMPH # 1.8 103/ul Normal 1.2-3.8 [facility] Comment on above: Performed By: #### C BC #### [facility] [address] [place] [address] Dr. Day Davis Lymphocytes/100 WBC (Bld) 26.3 % Normal 20.5-60.0 [facility] Comment on above: Performed By: #### C BC #### [facility] [address] [place] [address] Dr. Day Davis MANUAL DIFF REQ NO Normal [facility] Comment on above: Performed By: #### C BC #### [facility] [address] [place] [address] Dr. Day Davis MCH (RBC) [Entitic mass] 30.4 pg Normal 25.9-34.0 [facility] Comment on above: Performed By: #### C BC #### [facility] [address] [place] [address] Dr. Day Davis MCHC (RBC) [Mass/Vol] 34.2 g/dL Normal 29.9-35.2 [facility] Comment on above: Performed By: #### C BC #### [facility] [address] [place] [address] Dr. Day Davis MCV (RBC) [Entitic vol] 89.1 fL Normal 80.0-94.0 [facility] Comment on above: Performed By: #### C BC #### [facility] [address] [place] [address] Dr. Day Davis MONO # 0.5 103/ul Normal 0.3-0.8 [facility] Comment on above: Performed By: #### C BC #### [facility] [address] [place] [address] Dr. Day Davis Monocytes/100 WBC (Bld) 6.8 % Normal 1.7-12.0 [facility] Comment on above: Performed By: #### C BC #### [facility] [address] [place] [address] Dr. Day Davis NEUT # 4.4 103/ul Normal 1.4-6.5 [facility] Comment on above: Performed By: #### C BC #### [facility] [address] [place] [address] Dr. Day Davis Neutrophils/100 WBC (Bld) 63.0 % Normal 43.0-75.0 [facility] Comment on above: Performed By: #### C BC #### [facility] [address] [place] [address] Dr. Day Davis Platelet mean volume (Bld) [Entitic vol] 9.2 fL Critically low 9.5-13.5 [facility] Comment on above: Performed By: #### C BC #### [facility] [address] [place] [address] Dr. Day Davis PLT 226 103/ul Normal 150-450 [facility] Comment on above: Performed By: #### C BC #### [facility] [address] [place] [address] Dr. Day Davis RBC 4.57 106/ul Critically low 4.70-6.10 [facility] Comment on above: Performed By: #### C BC #### [facility] [address] [place] [address] Dr. Day Davis WBC 7.0 103/ul Normal 4.0-11.0 [facility] Comment on above: Performed By: #### C BC #### [facility] [address] [place] [address] Dr. Day Davis GLYCOHEMOGLOBIN A1Con 2022 ADA RECOMMENDATION SEE BELOW Normal [facility] Comment on above: Result Comment: ADA RECOMMENDED LIMIT 4.0 - 6.0 ADA THERAPEUTIC TARGET < 7.0 ACTION SUGGESTED > 7.0 Performed By: #### A 1C #### [facility] [address] [place] [address] Dr. Day Davis Glucose [Mass/Vol] 209 mg/dL Normal [facility] Comment on above: Performed By: #### A 1C #### [facility] [address] [place] [address] Dr. Day Davis HbA1c (Bld) [Mass fraction] 8.9 % Critically high 4.5-6.2 [facility] Comment on above: Performed By: #### A 1C #### [facility] [address] [place] [address] Dr. Day Davis CBC AUTO DIFFon 08-09-2022 BASO # 0.1 103/ul Normal 0.0-0.1 [facility] Comment on above: Performed By: #### C BC #### [facility] [address] [place] [address] Dr. Day Davis Basophils/100 WBC (Bld) 0.7 % Normal 0.2-2.0 [facility] Comment on above: Performed By: #### C BC #### [facility] [address] [place] [address] Dr. Day Davis EO # 0.2 103/ul Normal 0.0-0.7 [facility] Comment on above: Performed By: #### C BC #### [facility] [address] [place] [address] Dr. Day Davis Eosinophils/100 WBC (Bld) 3.4 % Normal 0.9-7.0 [facility] Comment on above: Performed By: #### C BC #### [facility] [address] [place] [address] Dr. Day Davis Erythrocyte distribution width (RBC) [Ratio] 12.1 % Normal 11.0-15.0 [facility] Comment on above: Performed By: #### C BC #### [facility] [address] [place] [address] Dr. Day Davis Hematocrit (Bld) [Volume fraction] 39.5 % Critically low 42.0-54.0 [facility] Comment on above: Performed By: #### C BC #### [facility] [address] [place] [address] Dr. Day Davis Hemoglobin (Bld) [Mass/Vol] 13.3 g/dL Critically low 14.0-18.0 [facility] Comment on above: Performed By: #### C BC #### [facility] [address] [place] [address] Dr. Day Davis IG # 0.01 10e3/ul Normal 0.00-0.03 [facility] Comment on above: Performed By: #### C BC #### [facility] [address] [place] [address] Dr. Day Davis IG % 0.1 % Normal 0.0-0.5 [facility] Comment on above: Performed By: #### C BC #### [facility] [address] [place] [address] Dr. Day Davis LYMPH # 1.8 103/ul Normal 1.2-3.8 [facility] Comment on above: Performed By: #### C BC #### [facility] [address] [place] [address] Dr. Day Davis Lymphocytes/100 WBC (Bld) 25.2 % Normal 20.5-60.0 [facility] Comment on above: Performed By: #### C BC #### [facility] [address] [place] [address] Dr. Day Davis MANUAL DIFF REQ NO Normal [facility] Comment on above: Performed By: #### C BC #### [facility] [address] [place] [address] Dr. Day Davis MCH (RBC) [Entitic mass] 30.4 pg Normal 25.9-34.0 [facility] Comment on above: Performed By: #### C BC #### [facility] [address] [place] [address] Dr. Day Davis MCHC (RBC) [Mass/Vol] 33.7 g/dL Normal 29.9-35.2 [facility] Comment on above: Performed By: #### C BC #### [facility] [address] [place] [address] Dr. Day Davis MCV (RBC) [Entitic vol] 90.2 fL Normal 80.0-94.0 [facility] Comment on above: Performed By: #### C BC #### [facility] [address] [place] [address] Dr. Day Davis MONO # 0.7 103/ul Normal 0.3-0.8 [facility] Comment on above: Performed By: #### C BC #### [facility] [address] [place] [address] Dr. Day Davis Monocytes/100 WBC (Bld) 9.8 % Normal 1.7-12.0 [facility] Comment on above: Performed By: #### C BC #### [facility] [address] [place] [address] Dr. Day Davis NEUT # 4.3 103/ul Normal 1.4-6.5 [facility] Comment on above: Performed By: #### C BC #### [facility] [address] [place] [address] Dr. Day Davis Neutrophils/100 WBC (Bld) 60.8 % Normal 43.0-75.0 [facility] Comment on above: Performed By: #### C BC #### [facility] [address] [place] [address] Dr. Day Davis Platelet mean volume (Bld) [Entitic vol] 8.8 fL Critically low 9.5-13.5 [facility] Comment on above: Performed By: #### C BC #### [facility] [address] [place] [address] Dr. Day Davis PLT 214 103/ul Normal 150-450 [facility] Comment on above: Performed By: #### C BC #### [facility] [address] [place] [address] Dr. Day Davis RBC 4.38 106/ul Critically low 4.70-6.10 [facility] [facility] Comment on above: Performed By: #### C BC #### [facility] [address] [address] [address] Day Davis WBC 7.0 103/ul Normal 4.0-11.0 [facility] Comment on above: Performed By: #### C BC #### [facility] [address] [place] [address] Dr. Day Davis GLYCOHEMOGLOBIN A1Con 2021 ADA RECOMMENDATION SEE BELOW Normal [facility] Comment on above: Result Comment: ADA RECOMMENDED LIMIT 4.0 - 6.0 ADA THERAPEUTIC TARGET < 7.0 ACTION SUGGESTED > 7.0 Performed By: #### A 1C #### [facility] [address] [place] [address] Dr. Day Davis Glucose [Mass/Vol] 177 mg/dL Normal [facility] Comment on above: Performed By: #### A 1C #### [facility] [address] [place] [address] Dr. Day Davis HbA1c (Bld) [Mass fraction] 7.8 % Critically high 4.5-6.2 [facility] Comment on above: Performed By: #### A 1C #### [facility] [address] [place] [address] Dr. Day Davis PROF 14(COMP METB)on 022 Albumin [Mass/Vol] 4.0 g/dL Normal 3.4-5.0 [facility] Comment on above: Performed By: #### C MP #### [facility] [address] [place] [address] Dr. Day Davis Albumin/Globulin [Mass ratio] 1.2 {ratio} Normal [facility] Comment on above: Performed By: #### C MP #### [facility] [address] [place] [address] Dr. Day Davis ALP [Catalytic activity/Vol] 70 U/L Normal 46-116 [facility] Comment on above: Performed By: #### C MP #### [facility] [address] [place] [address] Dr. Day Davis ALT [Catalytic activity/Vol] 37 U/L Normal 16-63 [facility] Comment on above: Performed By: #### C MP #### [facility] [address] [place] [address] Dr. Day Davis Anion gap [Moles/Vol] 11.4 mmol/L Normal [facility] Comment on above: Performed By: #### C MP #### [facility] [address] [address] [address] Day Davis AST [Catalytic activity/Vol] 18 U/L Normal 15-37 [facility] Comment on above: Performed By: #### C MP #### [facility] [address] [place] [address] Dr. Day Davis Bilirubin [Mass/Vol] 0.4 mg/dL Normal 0.2-1.0 [facility] Comment on above: Performed By: #### C MP #### [facility] [address] [place] [address] Dr. Day Davis Calcium [Mass/Vol] 8.7 mg/dL Normal 8.5-10.1 [facility] Comment on above: Performed By: #### C MP #### [facility] [address] [place] [address] Dr. Day Davis Chloride [Moles/Vol] 104 mmol/L Normal 98-107 [facility] Comment on above: Performed By: #### C MP #### [facility] [address] [place] [address] Dr. Day Davis CO2 [Moles/Vol] 26.8 mmol/L Normal 21.0-32.0 [facility] Comment on above: Performed By: #### C MP #### [facility] [address] [place] [address] Dr. Day Davis Creatinine [Mass/Vol] 0.94 mg/dL Normal 0.70-1.30 [facility] Comment on above: Performed By: #### C MP #### [facility] [address] [place]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 cataract Hospitalization History See Above [employer] Other Hospital Discharge instructionsAmbulatory Orders* Referral to Orthopedics Time Frame: 12/13/24, Location: None [facility] Work Phone: Progress note* Clinical Note Date No Information [facility] Work Phone: Reason for referral (narrative)* Reason For Referral No Information [facility] Work Phone: Summary Purpose Family History [...] 01, 2023 5:23pm Reason for Referral Reason *FU 07/04 [facility] T office. 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) Referral Organization [facility] Referring Provider First Name Sandra Referring Provider Last Name Suzi Referring Provider Specialty [facility] [employer] Referred Organization [facility] Referred Provider JabierederMarisol Referred Address ,[place],[address] Referred Provider Specialty Ear, Nose an d Throat Referral Priority Routine General Notes Octavia Fabian 12:41:31 PM >received today, insurance attached, waiting for notes to be locked to fax Chief Complaint and Reason for Visit Chief Complaint Amb Documentation Head Cold-Stuffy nose 4 Month Check Up Reason for Visit Maxillary sinusitis Screening PSA (prostate specific antigen) [id number] Chief Complaint Amb Documentation 4 MONTH FOLLOW UP Reason for Visit Essential (primary) hypertension Hyperlipidemia Hypertension [id number] Chief Complaint Admit Date 4 month f/u [...] knee pain December 13, 2024 9 :14am Chief Complaint Admit Date Wellness December 13, 2024 9 :14am M25.561 - Pain in right knee January 14, 2025 10:17am CONSULT DR. SANDRA LNAE BILAT KNEE PAIN , WX January 14, 2025 10:22am Reason for Visit Admit Date Bilateral knee pain December 13, 2024 9 :14am Medicare annual wellness visit, subseque nt December 13, 2024 9:14am KAYLYNN (obstructive sleep apnea) December 132024 9:14am Type 2 diabetes mellitus wit h hyperglycemia, without long-term current use December 13, 2024 9:14am Reason for Visit Admit Date Bilateral knee pain December 13, 2024 9 :14am Medicare annual wellness visit, subseque nt December 13, 2024 9:14am KAYLYNN (obstructive sleep apnea) December 132024 9:14am Type 2 diabetes mellitus wit h hyperglycemia, without long-term current use December 13, 2024 9:14am Bilateral primary osteoarthritis of knee January 14, 2025 10:22am Weakness of both quadriceps muscles Rodriguez h 2024 10:22am Additional Source Comments (unrecognized sect ion and content) No Status Records FoundNo Status Records FoundNo Status Records FoundNo Status Records FoundNo Status Records Found INFORMATION SOURCE (unrecogn ized section and content) DATE CREATED AUTHOR 12/28/2018 [facility] DATE CREATED AUTHOR AUTHOR'S ORGANIZ ATION 03/06/2023 [facility] DATE CREATED AUTHOR AUTHOR'S ORGANIZ ATION 11/01/2024 [facility] DATE CREATED AUTHOR AUTHOR'S ORGANIZ ATION 11/06/2024 [facility] DATE CREATED AUTHOR AUTHOR'S ORGANIZ ATION 01/18/2025 [facility] REASON FOR VISIT (unrecogniz ed section and content) Reason Comments Skin Check Care Teams (unrecognized sec tion and content) Team Status: Active Member Role Status Dates Sandra Lane MD Primary Care Provider Active Team Status: Inactive Member Role Status Dates Sandra Lane MD Primary Care Provide r, Attending Provider Active Start: September 16, 2024 End: September 16, 2024 Team Status: Inactive Member Role Status Dates Sandra Lane MD Primary Care Provide r, Attending Provider Active Start: December 13, 2024 End: December 13, 2024 Team Status: Active Member Role Status Dates Sandra Lane MD Primary Care Provider Active Start: January 06, 2024 ADRIAN Perez Attending Provider Active Start : January 06, 2024 Team Status: Inactive Member Role Status Dates Sandra Lane MD Primary Care Provider Active Start: January 16, 2024 End: January 16, 2024 Renuka Irizarry APRN TARPER-C Attending Provider Act nael Start: January 16, 2024 End: January 16, 2024 Team Status: Inactive Member Role Status Dates Sandra Lane MD Primary Care Provide r, Attending Provider Active Start: January 26, 2024 End: January 26, 2024 Team Status: Active Member Role Status Dates Sandra Lane MD Primary Care Provider Active Start: March 05, 2024 ADRIAN Perez Attending Provider Active Start : March 05, 2024 Team Status: Inactive Member Role Status Dates Sandra Lane MD Primary Care Provide r, Attending Provider Active Start: May 27, 2024 End: May 27, 2024 Roll Over Press Operator Relationship Specialty Start Date End Date Sandra Lane MD [address] [place] [address] PCP - General Family Medicine 06/27/23 Roll Over Press Operator Relationship Specialty Start Date End Date Sandra Lane MD [address] [place] [address] PCP - General Family Medicine 06/27/23 Name Effective Dates (start - stop) Status Members No Information Team Status: Active Member Role Status Dates Sandra Lane MD Primary Care Provider Active Start: January 14, 2025 Shane Cosme II, MD Attending Provider Active Start: January 14, 2025 Team Status: Inactive Member Role Status Dates Sandra Lane MD Primary Care Provider Active Start: January 14, 2025 End: January 14, 2025 Shane Cosme II, MD Attending Provider Active Start: January 14, 2025 End: January 14, 2025 Goals (unrecognized section and content) Goals may [...] BE BASED ON THE PRIMARY CLINICAL RECORDS. [facility]. provides no warranty or guarantee of the accuracy or completeness of information in this document.
[2025-03-21 11:02] LABS: Platelet Count 183 10^3/uL (150-450)
[2025-03-21 11:16] LABS: Estimated Average Glucose 174 mg/dL; Glycohemoglobin A1C 7.7 % (4.5-6.2)
[2025-03-21 11:19] LABS: Creatinine Urine Random 86.45 mg/dL (20.00-300.00); Microalbum Creatinine Ratio Ur 124.9 mg/g (0.0-29.9); Microalbumin Urine Random 10.8 mg/dL (<=30.0)
[2025-03-21 11:23] LABS: Alanine Aminotransferase 30 U/L (16-63); Albumin Globulin Ratio 1.2; Albumin Level 3.7 g/dL (3.4-5.0); Alkaline Phosphatase 65 U/L (46-116); Anion Gap 11.1; Aspartate Amino Transferase 19 U/L (15-37); BUN Creatinine Ratio 28.3; Bilirubin Total 0.6 mg/dL (0.2-1.0); Calcium 8.7 mg/dL (8.5-10.1); Carbon Dioxide 28.4 mmol/L (21.0-32.0); Chloride 104 mmol/L (98-107); Chol HDL Ratio 3.1; Cholesterol 167 mg/dL (<=200); Estimated GFR (African America >60 (>=60 mL/min/1.73m^2); Estimated GFR (Non-African Ame >60 (>=60 mL/min/1.73m^2); Globulin 3.1 g/dL; Glucose 143 mg/dL (74-106); HDL Cholesterol 54 mg/dL (40-60); LDL Cholesterol Calculated 102.6 mg/dL; Potassium 4.5 mmol/L (3.5-5.1); Sodium 139 mmol/L (136-145); Total Protein 6.8 g/dL (6.4-8.2); Triglycerides 52 mg/dL (<=150); VLDL CHOLESTEROL 10.4 mg/dL
== END 2025-03-21 10:21 | disposition home or self-care (01) ==
LOC: LAB 10:29
PROVIDERS: PCP Family Medicine; Visit Provider Family Medicine
DX: E78.2 Mixed hyperlipidemia (principal); E11.65 Type 2 diabetes mellitus with hyperglycemia; I10 Essential (primary) hypertension
CPT/HCPCS: 36415; 80053; 80061; 82043; 82570; 83036; 85025

== ENCOUNTER 2025-04-19 09:24 | Outpatient (RCR) | payer MEDICARE, OTHER, SELFPAY ==
[2025-04-19 15:31] LABS: Basophils Percent Auto 0.6 % (0.2-2.0); Eosinophils Absolute Auto 0.2 10^3/uL (0.0-0.7); Eosinophils Percent Auto 2.7 % (0.9-7.0); Hematocrit 37.6 % (42.0-54.0); Hemoglobin 12.6 g/dL (14.0-18.0); Immature Granulocytes Abs Auto 0.02 10^3/uL (0.00-0.03); Immature Granulocytes Pct Auto 0.3 % (0.0-0.5); Lymphocytes Absolute Auto 1.5 10^3/uL (1.2-3.8); Mean Corpuscular HGB Conc 33.5 g/dL (29.9-35.2); Mean Corpuscular Hemoglobin 30.7 pg (25.9-34.0); Mean Corpuscular Volume 91.5 fL (80.0-94.0); Mean Platelet Volume 9.2 fL (9.5-13.5); Monocytes Absolute Auto 0.5 10^3/uL (0.3-0.8); Monocytes Percent Auto 6.7 % (1.7-12.0); Neutrophils Absolute Auto 4.6 10^3/uL (1.4-6.5); Neutrophils Percent Auto 67.7 % (43.0-75.0); Platelet Count 196 10^3/uL (150-450); Red Blood Count 4.11 10^6/uL (4.70-6.10); Red Cell Distribution Width 12.4 % (11.0-15.0); Reticulocyte Pct Auto 0.94 % (0.60-3.10); White Blood Count 6.8 10^3/uL (4.0-11.0)
[2025-04-19 15:50] LABS: Erythrocyte Sedimentation Rate 5 mm/hr (<=20)
[2025-04-19 15:56] LABS: Anion Gap 15.6; BUN Creatinine Ratio 25.8; Calcium 8.7 mg/dL (8.5-10.1); Carbon Dioxide 26.7 mmol/L (21.0-32.0); Chloride 103 mmol/L (98-107); Estimated GFR (African America >60 (>=60 mL/min/1.73m^2); Estimated GFR (Non-African Ame >60 (>=60 mL/min/1.73m^2); Glucose 215 mg/dL (74-106); Lactate Dehydrogenase 185 U/L (85-227); Potassium 4.3 mmol/L (3.5-5.1); Sodium 141 mmol/L (136-145)
[2025-04-19 16:05] LABS: C Reactive Protein <0.50 mg/dL (<=0.50)
[2025-04-19 16:13] LABS: Percent Iron Saturation 33.8 %
[2025-04-20 04:10] LABS: Vitamin B12 323 pg/mL (232-1245)
[2025-04-21 16:09] LABS: Alpha-1-Globulin 0.2 g/dL (0.0-0.4); Alpha-2-Globulin 0.7 g/dL (0.4-1.0); Free Kappa Lt Chains,S 15.3 mg/L (3.3-19.4); Free Lambda Lt Chains,S 11.7 mg/L (5.7-26.3); Gamma Globulin 0.7 g/dL (0.4-1.8); Immunofixation Result, Serum Comment: (.); Immunoglobulin A, Qn, Serum 255 mg/dL (61-437); Immunoglobulin G, Qn, Serum 759 mg/dL (603-1613); Immunoglobulin M, Qn, Serum 28 mg/dL (15-143); Kappa/Lambda Ratio,S 1.31 (0.26-1.65); Protein, Total 6.7 g/dL (6.0-8.5)
== END 2025-04-20 08:08 | disposition home or self-care (01) ==
LOC: HEMC 09:24
PROVIDERS: PCP Family Medicine; Visit Provider Internal Medicine Hematology & Oncology
DX: D64.9 Anemia, unspecified (principal); E11.9 Type 2 diabetes mellitus without complications; Z79.84 Long term (current) use of oral hypoglycemic drugs; Z87.891 Personal history of nicotine dependence; G47.30 Sleep apnea, unspecified; M17.9 Osteoarthritis of knee, unspecified
CPT/HCPCS: 36415; 80048; 82607; 82728; 82784; 83521; 83540; 83550; 83615; 84155; 84165; 85025; 85045; 85652; 86140; 86334; G0463

== ENCOUNTER 2025-05-10 07:36 | Outpatient (RCR) | payer MEDICARE, OTHER, SELFPAY | END 2025-05-11 08:00 | disposition home or self-care (01) | LOC: HEMC 07:36 | PROVIDERS: PCP Family Medicine; Visit Provider Internal Medicine Hematology & Oncology | DX: D64.9 Anemia, unspecified (principal); E11.9 Type 2 diabetes mellitus without complications; G47.30 Sleep apnea, unspecified; Z85.820 Personal history of malignant melanoma of skin; Z87.891 Personal history of nicotine dependence; I10 Essential (primary) hypertension; E78.5 Hyperlipidemia, unspecified; Z79.84 Long term (current) use of oral hypoglycemic drugs | CPT/HCPCS: G0463 ==

== ENCOUNTER 2025-10-04 12:22 | Outpatient (OUT) | payer MEDICARE, OTHER, SELFPAY ==
--- OUTSIDE RECORDS SUMMARY | 2025-01-03 02:50 | XMS_ITS ---
Author Organization [facility] Address [address] [place] [address] Care Team Providers Care Photographic Editor Name Role Phone Urban Todd Unavailable [phone] Jayjay Cruz Bruce [phone] REASON FOR VISIT REFERRAL FROM DAISHA Saldivar/Tracy KNEE OA - FILEMON XR Encounters Encounter Location Date Provider Diagnosis [facility] [facility] [address] [address] 01/03/2025 Jayjay Cruz Plan Of Treatment No Information Progress Notes * ROXANE GRACE LDOB:[birth year] (75 yo M)Acc No.[id number]:01/03/2025 Patient:?ROXANE GRACE :?Jayjay Cruz MDDOB:1950???Age:74 Y ???Sex:MaleDate:01/03/2025Phone:[phone]:[address] [place], [place] [id number] Subjective: * Chief Complaints: * 1 . REFERRAL FROM DAISHA Lott KNEE OA - FILEMON XR. * Medical History: Objective: * Vitals: Assessment: Plan: * Treatment: Forms: * Images: * Electronic signature of Jayjay Cruz MD on 10/04/2025 at 12:27 PM ESTSign off status: Pending * Provider: Huber Cruz MD Date: 0 01/03/2025 Generated for Printing/Faxing/eTransmitting on:?10/04/2025 12:27 PM EST
--- OUTSIDE RECORDS SUMMARY | 2025-04-19 09:00 | XMS_ITS ---
Author Organization [facility] in [place] Address [address] [place] [address] Care Team Providers Care Band Top Maker Name Role Phone Suzi RUIZ, Sandra Primary Care Provider Unavailab Nya Dela Cruz Unavailable [phone] REASON FOR VISIT New PT Hem Encounters Encounter Location Date Provider Diagnosis [facility] [address] [place] [address] 04/19/2025 Nya Mckeon Plan Of Treatment Next Appt Details Provider Name:NYA MCKEON , 10/18/2025 10:15:00 AM, [address] [place], [address], Progress Notes * Hansel CARABALLO LDOB:[birth year] (75 yo M)Acc No.[id number]:04/19/2025 UNLOCKED PROGRESS NOTE Progress Notes Patient: Hansel CANADA :?Nya Mckeon M.D.:1950???Age:75 Y ???Sex:MaleDate:04/19/2025Phone:[phone]:[address] [place] [address]Pcp:Sandra Archer MD Subjective: * Chief Complaints: * 1 . New PT Hem. * Medical History: Objective: * Vitals: Assessment: Plan: * Treatment: * * Electronic signature of Nya Mckeon MD, [id number] on 10/04/2025 at 12:26 PM ESTSign off status: PendingVisit Status:?CONFSMS (Voice) * Provider: Awilda Mckeon M.D. Date: 0 04/19/2025 Generated for Printing/Faxing/eTransmitting on:?10/04/2025 12:26 PM EST
--- OUTSIDE RECORDS SUMMARY | 2025-05-10 05:15 | XMS_ITS ---
Author Organization [facility] in [place] Address [address] [place] [address] Care Team Providers Care Ring Spinner Name Role Phone Suzi RUIZ, Sandra Primary Care Provider Unavailab Nya Dela Cruz Unavailable [phone] REASON FOR VISIT MD Encounters Encounter Location Date Provider Diagnosis [facility] [address] [place] [address] 05/10/2025 Nya Mckeon Plan Of Treatment Next Appt Details Provider Name:NYA MCKEON , 10/18/2025 10:15:00 AM, [address] [place], [address], Progress Notes * Hansel CARABALLO LDOB:[birth year] (75 yo M)Acc No.[id number]:05/10/2025 UNLOCKED PROGRESS NOTE Progress Notes Patient: Hansel CANADA :?Nya Mckeon M.D.:1950???Age:75 Y ???Sex:MaleDate:05/10/2025Phone:[phone]:[address] [place] [address]Pcp:Sandra Archer MD Subjective: * Chief Complaints: * 1 . MD. * Medical History: Objective: * Vitals: Assessment: Plan: * Treatment: * * Electronic signature of Nya Mckeon MD, [id number] on 10/04/2025 at 12:27 PM ESTSign off status: PendingVisit Status:?CONFSMS (Voice) * Provider: Awilda Mckeon M.D. Date: 0 05/10/2025 Generated for Printing/Faxing/eTransmitting on:?10/04/2025 12:27 PM EST
--- OUTSIDE RECORDS SUMMARY | 2025-10-04 12:27 | XMS_ITS | Patient Health Record ---
Author Organization [facility] in [place] Address [address] [place] [address] Care Team Providers Care Claims Representative Name Role Phone Sandra Archer MD Primary Care Provider UnavailNya Rocha Unavailable [phone] Results Component Value Reference Range Notes CBC AUTO DIFF (Not yet revie wed by provider) Interpretation: Performing Lab: Notes/Report: [facility] , White Blood Count 6.8 4.0-11.0 10 3/uL Red Blood Count4.114.70-6.10 10 6/vQVnqjpgnqlc85.614.0-18.0 g/zPPjgriwkjrp28.6 42.0-54.0 %Mean Corpuscular Ukztwx12.580.0-94.0 fLMean Corpuscular Hemoglobin 30.725.9-34.0 pgMean Corpuscular HGB Conc33.529.9-35.2 g/dLRed Cell Distribution Width12.411.0-15.0 %Platelet Jzypa815774-136 10 3/uLMean Platelet Volume9.29.5- 13.5 fLNeutrophils Percent Auto67.743.0-75.0 %Lymphocytes Percent Auto22.020.5- 60.0 %Monocytes Percent Auto6.71.7-12.0 %Eosinophils Percent Auto2.70.9-7.0 % Basophils Percent Auto0.60.2-2.0 %Immature Granulocytes Pct Auto0.30.0-0.5 % Neutrophils Absolute Auto4.61.4-6.5 10 3/uLLymphocytes Absolute Auto1.51.2-3.8 10 3/uLMonocytes Absolute Auto0.50.3-0.8 10 3/uLEosinophils Absolute Auto0.20.0- 0.7 10 3/uLBasophils Absolute Auto0.00.0-0.1 10 3/uLImmature Granulocytes Abs Auto0.020.00-0.03 10 3/uLPerforming Lab:see note - [facility] LB IRON AND TIBC (Not yet reviewed by provider) Interpretation: Performing Lab: Notes/Report: [facility] ,Xgvn644.065.0-175.0 ug/dLTotal Iron Binding Cxumazdo058.0250.0-450.0 ug/dL Percent Iron Fnsfbhnpvj76.8Performing Lab:see note - [facility] LB Erythrocyte Sedimentation Rate (Not yet reviewed by provider) Interpretation: Performing Lab: Notes/Report: [facility] ,Erythrocyte Sedimentation Rate5<=20 mm/hrPerforming Lab:[facility] noteBet[facility] LBReticulocyte Pct Auto (Not yet reviewed by provider) Interpretation: Performing Lab: Notes/Report: [facility] ,Reticulocyte Pct Auto0.940.60-3.10 %Performing Lab:see note - [facility] LBVitamin B12 (Not yet reviewed by provider) Interpretation: Performing Lab: Notes/Report: [facility] ,Vitamin [id number] pg/mL Tape Rules Printing Machine Operator: Owen Machado PhD, Phone: [phone] [address] [place], [place] [phone] Performed at: CB - [facility] [place] Performing Lab:see note - [facility] LBIFE, PE and FLC, Serum (Not yet reviewed by provider) Interpretation: Performing Lab: Notes/Report: [facility] ,Immunoglobulin G, Qn, Dfjui176929-0363 mg/dLImmunoglobulin A, Qn, Psbff18686- 437 mg/dLImmunoglobulin M, Qn, Bezfj8771-674 mg/dLProtein, Total6.76.0-8.5 g/dL Albumin4.02.9-4.4 g/wDZrjgw-7-Qpukioii8.20.0-0.4 g/fDVykcx-4-Wnlccxwn8.70.4-1.0 g/dLBeta Globulin1.00.7-1.3 g/dLGamma Globulin0.70.4-1.8 g/dLM-SpikeNot Observed Not Observed g/dLGlobulin, Total2.72.2-3.9 g/dLA/G Ratio1.50.7-1.7Immunofixation Result, SerumComment:. Presence of monoclonal protein is unclear at this time. Suggest repeat in 3 to 6 months if clinically indicated. Please note:Comment. Protein electrophoresis scan will follow via computer, mail, or sales representative printing paper delivery. Free Sylvester Lt Chains,S15.33.3-19.4 mg/LFree Lambda Lt Chains,S11.75.7-26.3 mg/L Sylvester/Lambda Ratio,S1.310.26-1.65 Tape Rules Printing Machine Operator: Owen Machado PhD, Phone: [phone] [address] [place], [place] [phone] Performed at: [facility] Performing Lab:see noteLC - [facility] LBPROF CHEM 8 (BAS METB) (Not yet reviewed by provider) Interpretation: Performing Lab: Notes/Report: [facility] ,Gvdjrz831988-094 mmol/LPotassium4.33.5-5.1 mmol/FXoeidiab26132-688 mmol/LCarbon Zkcjdhh98.721.0-32.0 mmol/LAnion Gap15.1Bqnlviz29840-746 mg/dLBlood Urea Pbvswgmk08.07.0-18.0 mg/dLCreatinine0.930.70-1.30 mg/dLEstimated GFR ( Yudith>60>=60 mL/min/1.73m 2Estimated GFR (Non- Nicolasa>60>=60 mL/min/1.73m 2BUN Creatinine Ratio25.9Szyqrwc5.78.5-10.1 mg/dLPerforming Lab:see noteML - [facility] LBLDH (Not yet reviewed by provider) Interpretation: Performing Lab: Notes/Report: [facility] ,Lactate Bkureadhxbdyb07256-302 U/LPerforming Lab:see noteML - [facility] LBFERRITIN (Not yet reviewed by provider) Interpretation: Performing Lab: Notes/Report: [facility] ,Cmkefwcb00.026.0-388.0 ng/mLPerforming Lab:see noteML - [facility] LBCRP (Not yet reviewed by provider) Interpretation: Performing Lab: Notes/Report: [facility] ,C Reactive Protein<0.50<=0.50 mg/dLPerforming Lab:see noteML - [facility] LB Reason For Referral No Information Encounters Encounter Location Date Provider Diagnosis [facility] [address] [place] [address] 04/19/2025 Nya Mckeon [facility] [address] [place] [address]/11/2024 Nya Mckeon Plan Of Treatment Pending Test Test Name Order Date CBC AUTO DIFF 04/19/2025 CRP 04/19/2025 FERRITIN 04/19/2025 IRON AND TIBC 04/19/2025 LDH 04/19/2025 PROF CHEM 8 (BAS METB) 04/19/2025 Erythrocyte Sedimentation Rate ALCON, PE and FLC, Serum 04/19/2025 Reticulocyte Pct Auto 04/19/2025 Vitamin B12 04/19/2025 Next Appt Details Provider Name:NYA MCKEON , 10/18/2025 10:15:00 AM, [address] [place], [address], Insurance Providers Payer Name Payer Address Payer Phone Subscriber Number Group Number Insured Name Patient Relationship to Insured Coverage Start Date Coverage End Date [employer] [address] [facility] [address] [place] [address] [id number] scott - patient is the insuredMED[place] [id number], CharlesSelf - patient is the insured
--- OUTSIDE RECORDS SUMMARY | 2025-10-04 12:27 | XMS_ITS | Patient Health Record ---
Author Organization [facility] Address [address] [place] [address] Care Team Providers Care Federal Mediation Commissioner Name Role Phone Urban Todd Unavailable [phone] Jayjay Cruz Unavailable [phone] Mariam Doty Unavailable [phone] Allergies No Known Allergies Results Component Value Reference Range Notes SCC- KNEE 4 VIEW [id number] Reviewed date:01/27/2025 01:26:48 PM Interpretation: Performing Lab: Notes/Report: SCC- KNEE 4 VIEW RIGHT [id number] Reviewed date:01/27/2025 01:26:59 PM Interpretation: Performing Lab: Notes/Report: Reason For Referral No Information Medications Medication SIG (Take, Route, Frequency, Duration) Notes Start Date End Date Status multivitamin ActiveniacinActiveglipiZIDEActivepravastatinActivemetFORMINActivefluticasone ActiveatenololActiveaspirinActive Social History Tobacco Use: Social History Observation Description Date Details (start date - stop date) Never Smoker NA - NA AUDIT-C (Standard) Question Answer Notes Did you have a drink containing alcohol in the p ast year? No Tobacco Control (Standard) Question Answer Notes Tobacco use: Nonsmoker Problems Problem Type SNOMED Code ICD Code Onset Dates Problem Status W/U Status Risk Notes Problem Osteoarthritis of knee (36675066 7) Bilateral primary osteoarthritis of knee (M17.0) Activeconfirmed Vital Signs Height 5'10 in 12/27/2024 Tpuppw956 lbs5BMI29.41012/27/2024 Encounters Encounter Location Date Provider Diagnosis [facility] Office [address] [place] [address] [place] [address] 12/27/2024 [place] in right [place] M25.561 ; Bilateral primary osteoarthritis of knee M17.0 and Pain in left knee M25.562 Assessments Encounter Date Diagnosis (ICD Code) Assessment Notes Treatment Notes Treatment Clinical Notes Section Notes 12/27/2024 Pain in right knee (ICD-10 - M25 .561) 12/27/2024ilateral primary osteoarthritis of knee (ICD-10 - M17.0)12/27/2024 Pain in left knee (ICD-10 - M25.562)12/27/2024OtherToday I reviewed patient's x- rays with him and discussed conservative treatments versus operative treatment. Patient states that he has thought a lot about it and wants to discuss total knee replacement. I will have him see Dr. Cruz to discuss further. He can follow-up with us on an as-needed basis. Plan Of Treatment No Information Insurance Providers Payer Name Payer Address Payer Phone Subscriber Number Group Number Insured Name Patient Relationship to Insured Coverage Start Date Coverage End [place] [address] [place] [address] [id number] Yahaira GRACE - patient is the [facility] [employer] CompanyPO [address] [place] [id number], CHARLESSelf - patient is the insured Medical (General) History Medical History History ICD Code Cancer: Yes Cancer Type: SkinCPAP: YesCPAP Machine:: YesDiabetes: YesDiabetes, type II: Yes High Blood Pressure: YesKidney stones: YesSleep apnea: Yes
--- OUTSIDE RECORDS SUMMARY | 2025-10-04 12:27 | XMS_ITS | Clinical Summary ---
Author Organization [facility] Address [address] [place] [address] Care Team Providers Care Bias Binding Folder Name Role Phone Sandra Archer MD Primary Care Provider [phone] Allergies Active AllergyReactionsCriticalityNoted DateCommentsPollen ExtractMedium 12/08/2018 HAYFEVER SYMPTOMS Medications MedicationSigDispense QuantityRefillsLast FilledStart DateEnd DateStatus ASPIRIN 81 PO Take 1 tablet by mouth in the morning.Active atenolol (Tenormin) 100 MG tablet Take 100 mg by mouth in the morning.Active fluticasone (Flonase) 50 MCG/ACT nasal spray Administer 1 spray into each nostril 1 (one) time each day at the same time. Active Continuous Blood Gluc Sensor (FreeStyle Michael 2 Sensor) [facility] USE GZVQXWBA71/08/2023ctive glipiZIDE (Glucotrol) 5 MG tablet Take 5 mg by mouth 1 (one) time each day at the same time.Active metFORMIN (Glucophage) 500 MG tablet Take 1,000 mg by mouth in the morning and 1,000 mg in the evening. Take with meals.Active Multiple Vitamins-Minerals (Multi Complete) capsule Take 1 tablet by mouth in the morning.Active Inositol Niacinate (Niacin Flush Free) 500 MG capsule Take 1 capsule by mouth in the morning.Active pravastatin (Pravachol) 40 MG tablet Take 40 mg by mouth 1 (one) time each day at the same time.Active sertraline (Zoloft) 25 MG tablet Take 25 mg by mouth in the morning.Active triamcinolone (Kenalog) 0.1 % cream Indications:Other atopic dermatitisApply to affected areas, up to twice a day when flared, do not use one the face, groin, or underarms, 30 day supply 454 g 11112/31/2022ctive Active Problems ProblemNoted DateDiagnosed DateBilateral fqkprupb44/01/2023Essential (primary) sunsswslgnqb28/31/2023History of gmznnatn65/31/2023Sensorineural hearing loss (SNHL), tkfnomnuu68/31/2023Mixed cofxllhlcaokjc79/31/2023Other atopic dermatitis 09/09/2023Sleep apnea09/09/2023Type 2 diabetes mellitus with hyperglycemia, without long-term current use of wzlezzb7109/09/2023Retinal detachment with single break, left eye12/09/2018 Immunizations ImmunizationAdministration DatesNext DuePfizer Purple Cap SARS-CoV-2 Vaccination 05/30/2021,05/03/2021Tdap03/04/2023 Family History Medical HistoryRelationNameCommentsDiabetesBrother 1DiabetesBrother 2David BarnhartDiabetesFatherHubart barnhartDiabetesMotherRoseMary barnhartMelanomaNeg HxRelationNameStatusCommentsBrother 1Brother 2David BarnhartFatherHubart barnhartMotherRoseMary river Social History Tobacco UseTypesPacks/DayYears UsedDateSmoking Tobacco: OqqpwdRhobvipbxd008.5 04/10/1966 - 10/16/1987Smokeless Tobacco: Never Tobacco Cessation:Counseling Given: Not Answered Comments:quit in 1986 Alcohol UseStandard Drinks/WeekCommentsNot Currently0 (1 standard drink = 0.6 oz pure alcohol)drinks on rare occasions 6 or 7 months ago had about 3 beerSex and Gender InformationValueDate RecordedSex Assigned at BirthNot on fileLegal Sex Male01/22/2023 11:02 PM EDTGender IdentityNot on fileSexual OrientationNot on file Last Filed Vital Signs Vital SignReadingTime TakenCommentsBlood Etfabuzj079/8409/10/2023 1:58 PM EDT Pulse--Temperature--Respiratory Rate--Oxygen Saturation--Inhaled Oxygen Concentration--Zolsjm22.1 kg (203 lb)09/10/2023 1:58 PM TVPVqklgm834.1 cm (5' 10.5 )09/10/2023 1:58 PM EDTBody Mass Index28.7209/10/2023 1:58 PM EDT Plan of Treatment DateTypeDepartmentCare Team (Latest Contact Info)Fhwevkehvfd09/18/2025 3:30 PM ESTOffice Visit [facility] [address] [place] [address] Natalee Samaniego MD [address] [place] [address] Insurance Care Teams Team MemberRelationshipSpecialtyStart DateEnd Date Sandra Archer MD PCP - GeneralFamily Medicine06/27/23
--- OUTSIDE RECORDS SUMMARY | 2025-10-04 12:28 | XMS_ITS | Clinical Summary ---
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 Name Role Phone Amalia Hall MD Primary Care Provider Unavailab le Allergies Active AllergyReactionsCriticalityNoted DateCommentsEnvironmental/SeasonalMedium 12/08/2018 HAYFEVER SYMPTOMS Medications MedicationSigDispense QuantityRefillsLast FilledStart DateEnd DateStatus metFORMIN (GLUCOPHAGE) 500 MG tablet Take 500 mg by mouth 3 times dailyActive glipiZIDE (GLUCOTROL) 5 MG tablet Take 5 mg by mouth as needed TAKE 1/2 TABLET FOR BLOOD SUGAR OVER 160Active atenolol (TENORMIN) 100 MG tablet Take 100 mg by mouth dailyActive pravastatin (PRAVACHOL) 40 MG tablet Take 40 mg by mouth nightlyActive aspirin 81 MG tablet Take 81 mg by mouth daily LAST DOSE 12/05/2018Active NONFORMULARY Take 1 capsule by mouth daily PROTANDEM NATURAL SUPPLEMENTActive NONFORMULARY Take 12 drops by mouth daily HEMP OIL 3000 MGActive NONFORMULARY Take 1 tablet by mouth 2 times daily NIACIN 400MG/INOSITAL 100 MG SLOW RELEASE Active fluticasone (FLONASE) 50 MCG/ACT nasal spray 2 sprays by Each Nare route as needed for RhinitisActive Active Problems ProblemNoted DateDiagnosed DateRetinal detachment with single break, left eye 12/09/2018 Family History Medical HistoryRelationNameCommentsDiabetesBrotherIDDMDiabetesFatherNIDDMHeart DiseaseFatherHigh CholesterolFatherBreast CancerMaternal GrandmotherDiabetes Maternal GrandmotherNIDDMDiabetesMotherIDDMRelationNameStatusCommentsBrother DeceasedFatherDeceasedMaternal GrandfatherDeceasedMaternal GrandmotherDeceased MotherDeceasedPaternal GrandfatherDeceasedPaternal GrandmotherDeceasedSister Social History Tobacco UseTypesPacks/DayYears UsedDateSmoking Tobacco: FormerCigarettesQuit: 12/08/1989mokeless Tobacco: NeverAlcohol UseStandard Drinks/WeekCommentsYes0 (1 standard drink = 0.6 oz pure alcohol)1 OR 2 BEERS A YEARSex and Gender InformationValueDate RecordedSex Assigned at BirthNot on fileLegal SexMale 12/20/2012 3:37 PM ESTGender IdentityNot on fileSexual OrientationNot on file Last Filed Vital Signs Vital SignReadingTime TakenCommentsBlood Lhojeqan241/72012/09/2018 10:47 AM EST Wuatk959012/09/2018 10:47 AM YMCFljvuatydry49.6 ??C (97.9 ??F)12/09/2018 10:47 AM ESTRespiratory Grvj258612/09/2018 10:47 AM ESTOxygen Ztcndacyyp91%12/09/2018 10:47 AM ESTInhaled Oxygen Concentration--Tkzems29.5 kg (215 lb)12/09/2018 7:34 AM EST Wxzvlu074.8 cm (5' 10 )12/09/2018 7:34 AM ESTBody Mass Index30.85012/09/2018 7:34 AM EST Plan of Treatment Not on file Insurance Care Teams Team MemberRelationshipSpecialtyStart DateEnd Date Amalia Hall MD PCP - General12/07/18
--- OUTSIDE RECORDS SUMMARY | 2025-10-04 12:28 | XMS_ITS | CCD ---
Author Organization [facility] Care Team Providers Care Room Service Runner Name Role Phone DAVID CASTILLO Admitting Unavailable [...] Ervin Primary Care Unavailable PATEL ., DR LORRANIE Ervin Consulting Unavailable PATEL ., DR LORRAINE Ervin Admitting Unavailable PATEL ., DR LORRAINE Ervin Attending Unavailable PATEL ., DR LORRAINE Ervin Primary Care Unavailable PATEL ., DR LORRAINE Ervin Consulting Unavailable Sandra Archer Unavailable Sandra Archer MD Primary Care Provider NATALEE MARIEE Attending Unavailable Alex Thorne MD Unavailable UnavailShane Angel II Attending UnavailShane Angel II Admitting UnavailSandra Rosa Primary Care Unavailable Sandra Archer MD Primary Care Provider Shane Cosme MD Attending Provider [phone] Sandra Archer MD Primary Care Provider [phone] Sandra Archer MD Attending Provider [phone] Alex Thorne Attending Unavailable Alex Thorne Referring Unavailable Alex Thorne Attending Unavailable Alex Thorne MD Unavailable Unavailabl e Allergies Allergy ClassificationReported Allergen(s)Allergy TypeDate of OnsetReaction(s) Facility (3 sources)PollenPropensity to adverse wwrteleow64-02-7545ZJMM [employer] Work Phone: Medications Current Medications MedicationDrug Class(es)DatesSig (Normalized)Sig (Original)Aspir-81 (12 sources)Aspir-81 Activeaspirin 81 mg delayed release oral tablet (12 sources)Platelet Aggregation Inhibitor, Nonsteroidal Anti-inflammatory Drug Start: 20-43-0919idlm 1 tablet by mouth once dailyaspirin 81 mg tablet,delayed release take 1 tablet by oral route every day 81 MG - ActiveStart: 69-00-3045rllv 1 capsule by mouth once dailyAspirin 81 mg capsule Active 81 MG PO Daily January 15, 2024 1:00am Complies with drug therapytake 1 tablet by mouth in the morningASPIRIN 81 PO Take 1 tablet by mouth in the morning. Active Continuous Blood Gluc Sensor (FreeStyle Michael 2 Sensor) misc (3 sources)Start: 12-26-1304Tvbbvtqlwk Blood Gluc Sensor (FreeStyle Michael 2 Sensor) misc USE DIRECTED 07/18/2023 Activediclofenac sodium 0.01 mg/mg topical gel (4 sources)Nonsteroidal Anti-inflammatory DrugStart: 36-60-4095Jctrysepod Sodium 1 % gel Active 2 GM TOPICAL .4-5 times a day as needed for knee pain 12 09January 14, 2025 1:00am Complies with drug therapyStart: 22-27-6301Rjmsoqskka Sodium 1 % gel Active 2 GM TOPICAL .4-5 times a day as needed for knee pain January 1:00amFlash Glucose Sensor (Freestyle Michael 2 Sensor) kit (20 sources)Start: 48-73-0912Wyedd Glucose Sensor (Freestyle Michael 2 Sensor) kit Active 0 .ROUTE .COMPLEX May 19, 2025 3:27pm to test blood sugar daily Start: 05-16-2025 End: 75-13-2263Pbwfs Glucose Sensor (Freestyle Michael 2 Sensor) kit Discontinued 0 .ROUTE .COMPLEX 2 May 1654:29pm May 19, 2025 3:27pm USE DIRECTED Start: 11-11-2024 End: 41-04-5123Pmqaj Glucose Sensor (Freestyle Michael 2 Sensor) kit Discontinued 0 .ROUTE .COMPLEX 2 November 11, 2024 2:22pm May 16, 2025 4:29pm USE DIRECTEDStart: 71-17-5911Mqjqx Glucose Sensor (Freestyle Michael 2 Sensor) kit Active 0 .ROUTE .COMPLEX 2 November 11, 2024 2:22pm USE DIRECTEDStart: 00-62-0070Xahwj Glucose Sensor (Freestyle Michael 2 Sensor) kit Active 0 .ROUTE .COMPLEX 2 November 11, 2024 1:22pm USE DIRECTEDStart: 06-21-2024 End: 68-86-6144Ignlo Glucose Sensor (Freestyle Michael 2 Sensor) kit Discontinued 0 .ROUTE .COMPLEX 2 June 21, 2024 11:42am November 11, 2024 2:22pm USE DIRECTEDStart: 06-21-2024 End: 04-65-0872Udxlp Glucose Sensor (Freestyle Michael 2 Sensor) kit Discontinued 0 .ROUTE .COMPLEX 2 June 21, 2024 10:42am November 11, 2024 1:22pm USE DIRECTEDStart: 03-06-2024 End: 40-84-1197Vghnc Glucose Sensor (Freestyle Michael 2 Sensor) kit Discontinued 0 .ROUTE .COMPLEX 2 March 06, 2024 9:46pm June 21, 2024 11:42am USE DIRECTEDStart: 03-06-2024 End: 42-45-6444Vqfeo Glucose Sensor (Freestyle Michael 2 Sensor) kit Discontinued 0 .ROUTE .COMPLEX 2 March 06, 2024 8:46pm June 21, 2024 10:42am USE DIRECTEDStart: 27-78-5063Kykga Glucose Sensor (Freestyle Michael 2 Sensor) kit Active 0 .ROUTE .COMPLEX 2 March 06, 2024 9:46pm USE DIRECTEDStart: 03-05-2024 End: 29-42-3339Jprqq Glucose Sensor (Freestyle Michael 2 Sensor) kit Discontinued 0 .Route March 04, 2024 11:00pm March 06, 2024 8:46pm As directedStart: 03-05-2024 End: 06-64-5647Rbwbt Glucose Sensor (Freestyle Michael 2 Sensor) kit Discontinued 0 .Route March 05, 2024 12:00am March 06, 2024 9:46pm As directedfluticasone propionate 0.05 mg/actuat metered dose nasal spray (20 sources)CorticosteroidStart: 80-52-8349ccer 50 ug nasal route once daily as neededFlonase Allergy Relief 50 mcg/actuation nasal spray,suspension spray 1 - 2 spray by intranasal route every day in each nostril as needed 50-100 MCG - ActiveStart: 01-15-2024 End: 71-20-5126Upjwqxxvzev Propionate 50 mcg/actuation spray,suspension Discontinued 1 SPRAY INTRANASAL Daily September 16, 2024 11:04am February 16, 2025 10:09amtake 1 spray(s) nasal route once dailyfluticasone (Flonase) 50 MCG/ACT nasal spray Administer 1 spray into each nostril 1 (one) time eachday at the same time. Activetake 1 spray(s) nasal route once dailyFluticasone Propionate 50 MCG/ACT 1 spray in each nostril Nasally Once a day for 90 days Activetake 1 spray(s) nasal route once dailyFluticasone Propionate 50 MCG/ACT 1 spray in each nostril Nasally Once a day for 90 days ActiveFreeStyle Michael 2 Adams - (12 sources)Start: 47-76-4238YopoRslve Michael 2 Adams - as directed March, ActiveFreeStyle Michael 2 Sensor - (5 sources)FreeStyle Michael 2 Sensor - USE DIRECTED for 28 ActiveFreeStyle Michael Sensor (7 sources)Start: 29-01-2363PsqyIksbr Michael Sensor March, Activemeloxicam 15 mg oral tablet (7 sources)Nonsteroidal Anti-inflammatory DrugStart: 03-28-2025 End: 29-21-5928toma 1 tablet by mouth once dailyMeloxicam 15 mg tablet Active 0 .ROUTE .COMPLEX June 17, 2025 7:58am TAKE 1 TABLET BY MOUTH EVERY DAY Complies with drug therapyStart: 01-14-2025 End: 42-87-0758zbbe 1 tablet by mouth once dailyMeloxicam 15 mg tablet Discontinued 15 MG PO daily 30 January 14, 2025 1:00am March 28, 2025 8:44am metFORMIN hydrochloride 500 mg oral tablet (20 sources)BiguanideStart: 38-97-4326ehcs 2 tablets by mouth every twelve hours metformin 500 mg tablet take 2 tablet by oral route 2 times every day with morning and evening meals 1000 MG - ActiveStart: 06-21-2024 End: 28-43-4569gnko 2 tablets by mouth twice dailyMetformin 500 mg tablet Active 0 .ROUTE .COMPLEX 120 May 12, 2025 9:45am TAKE 2 TABLETS BY MOUTH TWICE A DAY Complies with drug therapyStart: 01-15-2024 End: 86-63-4446nqgm 2 tablets by mouth twice dailyMetformin 500 mg tablet Discontinued 1000 MG PO Twice daily 180 May 27, 2024 10:33am June 21, 2024 11:42amStart: 66-75-1172qptj 1000 mg by mouth twice dailyMetformin Active 1000 MG PO Twice daily January 15, 2024 1:00amMulti Complete - (12 sources)Multi Complete - as directed Orally ActiveMultiple Vitamins-Minerals (Multi Complete) capsule (3 sources)take 1 tablet by mouth in the morningMultiple Vitamins-Minerals (Multi Complete) capsule Take 1 tablet by mouth in the morning. Active Multivitamin (Daily Multi-Vitamin) tablet (7 sources)Start: 79-17-8169etgy 1 tablet by mouth once dailyMultivitamin (Daily Multi-Vitamin) tablet Active 1 TAB PO Daily January 15, 2024 1:00am Complies with drug therapyStart: 83-54-4551tvik 1 tablet by mouth once dailyMultivitamin (Daily Multi-Vitamin) tablet Active 1 TAB PO Daily January 15, 2024 12:00amStart: 30-47-1851jbgh 1 tablet by mouth once dailyMultivitamin (Daily Multi-Vitamin) tablet Active 1 TAB PO Daily January 15, 2024 1:00amMultivitamin 50 Plus tablet (2 sources)Start: 59-52-2356Qlenedkhviro 50 Plus tablet - Active niacin 500 mg oral tablet (20 sources)Nicotinic AcidStart: 94-45-9993zpzf 1 tablet by mouth twice daily Niacin 500 mg tablet Active 500 MG PO Twice daily January 15, 2024 1:00am Complies with drug therapyniacin ER 500 mg tablet,extended release bid - Active take 1 capsule by mouth in the morningInositol Niacinate (Niacin Flush Free) 500 MG capsule Take 1 capsule by mouth in the morning. Activetake 1 tablet by mouth every twelve hoursNiacin 500 MG 1 tablet with food Orally twice a day Activetake 1 tablet by mouth every twenty-four hoursNiacin 500 MG 1 tablet with food Orally Once a day Activesertraline 25 mg oral tablet (20 sources)Serotonin Reuptake InhibitorStart: 19-02-2709efgx 1 tablet by mouth once dailySertraline 25 mg tablet Active 25 MG PO Daily January 15, 2024 1:00am Complies with drug therapytriamcinolone acetonide 1 mg/ml topical cream (3 sources)CorticosteroidStart: 92-76-1624lipacbtphxgiv (Kenalog) 0.1 % cream Indications: Other atopic dermatitis Apply to affected areas, up to twice a day when flared, do not use one the face, groin, or underarms, 30 day supply 454 g 11 10/30/2023 Active Completed/Discontinued Medications MedicationDrug Class(es)DatesSig (Normalized)Sig (Original)amoxicillin 875 mg / clavulanate 125 mg oral tablet (7 sources)Penicillin-class AntibacterialStart: 01-16-2024 End: 83-81-6370fhpg 1 tablet by mouth twice dailyAmoxicillin-Pot Clavulanate 875-125 mg tablet Discontinued 1 TAB PO Twice daily 14 January 16, 2024 1:00am January 26, 2024 9:32amatenolol 100 mg oral tablet (20 sources)beta-Adrenergic BlockerStart: 01-06-2024 End: 53-58-7541alxw 1 tablet by mouth once dailyAtenolol 100 mg tablet Discontinued 100 MG PO Daily January 06, 2024 1:56pm September 16, 2024 11:05amglipiZIDE 5 mg oral tablet (20 sources)SulfonylureaStart: 03-06-2024 End: 81-27-3272kzvz 1 tablet by mouth once daily 30 minutes before breakfast Glipizide 5 mg tablet Discontinued 0 .ROUTE .COMPLEX August 28, 2024 8:24am November 24, 2024 1:18pm TAKE 1 TABLET BY MOUTH 30 MINUTES BEFORE BREAKFAST ONCE DAILYStart: 01-26-2024 End: 68-50-2123hezz 1 tablet by mouth twice dailyGlipizide 5 mg tablet Discontinued 5 MG PO Twice daily January 26, 2024 9:33am March 06, 2024 9:46pm Start: 01-15-2024 End: 48-88-2961xbsk 1 tablet by mouth once dailyGlipizide 5 mg tablet Discontinued 5 MG PO Daily January 15, 2024 1:00am January 26, 2024 9:35am glipizide 5 mg tablet take 1/2 tablet (2.5MG) by oral route every day if sugar is greater than 160 - Activetake 2 tablets by mouth every twenty-four hours glipiZIDE 5 MG 2 tablets Oral Once a day for 90 days Activepravastatin sodium 40 mg oral tablet (20 sources)HMG-CoA Reductase InhibitorStart: 01-06-2024 End: 83-79-6099lmrm 1 tablet by mouth once dailyPravastatin 40 mg tablet Discontinued 40 MG PO Daily January 06, 2024 1:56pm September 16, 2024 11:05am Problems Active Problems Problem ClassificationProblemDateDocumented DateEpisodic/ChronicAllergic reactions (3 sources)Atopic dermatitis; Translations: [Other atopic dermatitis]Onset: 845313-39-9986YvtyuhvOaiderpw (20 sources)Presence of intraocular lens; Translations: [Lens replaced by other means]Onset: 12-47-3877YnjyetrQpedsyaasg and other anemia (1 source)Anemia; Translations: [Anemia, unspecified]94-09-5567RtnxsfgcHgsfjuvg mellitus with complications (20 sources)Type 2 diabetes mellitus with unspecified complications; Translations: [Type 2 diabetes mellitus]Onset: 67-28-6719RgsorbmGwdijxnf mellitus without complication (20 sources)Type 2 diabetes mellitus without complications; Translations: [Type 2 diabetes mellitus without complications]Onset: 72-42-2139PbhdposIyjaacebw of lipid metabolism (20 sources)Mixed hyperlipidemia; Translations: [Mixed hyperlipidemia]Onset: 21-21-3706LhpevawX Codes: Fall (1 source)Other fall on same level, initial encounter; Translations: [OTHER FALL ON SAME LEVEL INITIAL]Onset: 66-46-9026AvaeksinBrxhavyte hypertension (20 sources)Essential (primary) hypertension; Translations: [Essential hypertension]Onset: 14-76-0131RdcwvbtXnzbncdqvphpc and screening for infectious disease (2 sources)Encounter for immunization; Translations: [ENCOUNTER FOR IMMUNIZATION]Onset: 70-43-1504IeukmszuVcqsclk and fatigue (4 sources)Other fatigue; Translations: [OTHER FATIGUE]Onset: 58-60-3458Frbkbngq Melanomas of skin (17 sources)H/O Malignant melanoma; Translations: [Personal history of malignant melanoma of skin]Onset: 769664-44-4907HnuvjborUfsacdihqhakmf (5 sources)Primary gonarthrosis, bilateral; Translations: [Bilateral primary osteoarthritis of knee]63-11-4262NbgxfpwFvbks aftercare (1 source)skilled nursing (current) use of aspirin; Translations: [JAIL CURRENT USE OF ASPIRIN]Onset: 72-02-9670VrqoghcaGlprd aftercare (1 source)skilled nursing (current) use of oral hypoglycemic drugs; Translations: [CENTRAL OFFICE FRAME WIRER USE ORAL HYPOGLYCEMIC DX]Onset: 81-43-2415EhnetynkUercc aftercare (1 source)Other shelter (current) drug therapy; Translations: [OTH CENTRAL OFFICE FRAME WIRER CURRENT DRUG THERAPY]Onset: 66-13-0371RgikdnwcEvtji and unspecified benign neoplasm (2 sources)Melanocytic nevus of trunk; Translations: [Melanocytic nevi of trunk] 43-10-9084WgjjlznnUzvhl and unspecified benign neoplasm (2 sources)Dermatofibroma; Translations: [Other benign neoplasm of skin, unspecified]95-12-2058BvvzpwcmDeqgy connective tissue disease (4 sources)Quadriceps weakness; Translations: [Muscle weakness (generalized)] 60-32-1780ByhayovqGewbq connective tissue disease (2 sources)Muscle weakness (generalized); Translations: [Muscle weakness (generalized)]00-17-5929IzhwdptcFjuzv ear and sense organ disorders (17 sources)Mixed conductive and sensorineural hearing loss, bilateral; Translations: [Mixed conductive and sensorineural hearing loss, bilateral] 13-16-5133OmmajesHpdcb ear and sense organ disorders (2 sources)Mixed conductive and sensorineural hearing loss, bilateralChronic Other ear and sense organ disorders (3 sources)Sensorineural hearing loss, bilateral; Translations: [Sensorineural hearing loss, bilateral]Onset: 970760-60-0723KeabverJlcek eye disorders (6 sources)Vitreous degenerationChronicOther eye disorders (4 sources)Esotropia, unspecifiedEpisodicOther injuries and conditions due to external causes (4 sources)Unspecified injury of head, initial encounter; Translations: [UNSPECIFIED INJURY HEAD INITIAL ENC]Onset: 63-51-6138KpfuqpbkBwxjx nervous system disorders (1 source)Other chronic pain; Translations: [Other chronic pain]Onset: 99-80-4841YwugjtrFcpoz non-traumatic joint disorders (9 sources)Pain in right knee; Translations: [Pain in both knees]Onset: 553352-57-0294HrmcelxhDzsvo non-traumatic joint disorders (1 source)Pain in left knee; Translations: [Pain in left knee]Onset: 01-14-2025 EpisodicOther screening for suspected conditions (not mental disorders or infectious disease) (10 sources)Patient encounter status; Translations: [Encounter for screening for malignant neoplasm of prostate]11-95-6215JzhdxirmGuicc skin disorders (2 sources)Seborrheic keratosis; Translations: [Other seborrheic keratosis] 19-63-3721JupyrfujLzblx skin disorders (2 sources)Lentiginosis; Translations: [Other melanin hyperpigmentation] 93-00-0850ZhpmhfqwVwmmu upper respiratory infections (8 sources)Maxillary sinusitis; Translations: [Chronic maxillary sinusitis] 44-01-8841FfzfbjsNjdkkbxgfi and visceral atherosclerosis (5 sources)Peripheral vascular disease, unspecified; Translations: [PERIPHERAL VASCULAR DISEASE UNS]Onset: 20-66-7301BnwjjsuWziaqvsl codes; unclassified (13 sources)Sleep apnea; Translations: [Sleep apnea, unspecified]Onset: 598072-50-4184QhaiulfTwxzvbxa codes; unclassified (2 sources)Sleep apnea, unspecifiedChronicResidual codes; unclassified (20 sources)Obstructive sleep apnea syndrome; Translations: [Obstructive sleep apnea (adult) (pediatric)]73-15-8507ZiwurpfLxnovuxu codes; unclassified (5 sources)Obstructive sleep apnea (adult) (pediatric); Translations: [Obstructive sleep apnea (adult)(pediatric)]ChronicResidual codes; unclassified (2 sources)Immunization not carried out because of patient refusal; Translations: [Herpes zoster vaccination declined]74-25-4329LrvwsdhqFqaqkdml codes; unclassified (2 sources)Influenza vaccination declined; Translations: [Immunization not carried out because of patient refusal]61-99-9193PujdndpeAgjbjsr detachments; defects; vascular occlusion; and retinopathy (20 sources)Puckering of macula, bilateral; Translations: [Puckering of macula, right eye]Onset: 30-58-0012SirknunIzpeagz detachments; defects; vascular occlusion; and retinopathy (20 sources)Retinal detachment with single break, left eye; Translations: [Recent retinal detachment, partial, with single defect]Onset: 08-15-2022 Resolved: 568152-06-4454PkbmqottCjypbwz and strains (1 source)Strain of muscle, fascia and tendon at neck level, initial encounter; Translations: [STRN MUSC FASCTENDON NECK LEVL INT]Onset: 82-76-1430Keyqmpar Superficial injury; contusion (1 source)Contusion of scalp, initial encounter; Translations: [CONTUSION SCALP INITIAL ENCOUNTER]Onset: 92-17-5797AvngjncgAletnjyncpuj (2 sources)RETINAL DETACHMENT LEFT EYE; Translations: [RETINAL DETACHMENT LEFT EYE]Onset: 12-09-2018 Past or Other Problems Problem ClassificationProblemDateDocumented DateEpisodic/ChronicOther ear and sense organ disorders (3 sources)Bilateral tinnitus; Translations: [Tinnitus, bilateral]Onset: 872895-57-7913TrpyssqcFmosl male genital disorders (4 sources)Disorder of prostate, unspecified; Translations: [DISORDER OF PROSTATE UNSPECIFIED]Onset: 20-35-3890UasocfriPpvfjasdsmtp (2 sources)RD (multiple - repaired) (chief complaint)Onset: 08-20-2024 Unclassified (2 sources)1 yr fu due to retinal detachment w/ single break (chief complaint) Stable vision (chief complaint)Onset: 69-85-2902Apambjchslvn (2 sources)repaired RD (chief complaint) stable vision (chief complaint)Onset: 41-72-5920Wafhcqdlazhg (2 sources)history of a RD repair (chief complaint) stable vision (chief complaint)Onset: 26-30-5444Lmwyteynlxbn (2 sources)Retinal detachment (chief complaint) improved vision (chief complaint)Onset: 40-35-6777Emhplcbhdobs (2 sources)treated RD (chief complaint)Onset: 47-63-4084Cvwvxosezjns (2 sources)retinal detachment (chief complaint) stable vision (chief complaint) Onset: 90-76-8567Gsaylhvwcext (2 sources)treated RD (chief complaint) patient fell (chief complaint)Onset: 02-56-6938Rlzhwwhnmfiy (2 sources)treated retinal detachment (chief complaint) slightly improved vision (chief complaint)Onset: 09-04-6872Jfiaqkvpyavn (2 sources)Retinal Detachment (chief complaint) denies ocular pain (chief complaint)Onset: 27-87-3426Krhuyhoehurf (2 sources)left cobwebs (chief complaint) Follow Up of Retinal detachment (chief complaint)Onset: 83-08-4977Efksrinlqrxu (2 sources)history of recurrent retinal detachment (chief complaint) denies vision changes (chief complaint)Onset: 95-88-9313Mokmukiozfmo (2 sources)history of multiple RD (chief complaint) improvement in floaters (chief complaint)Onset: 13-00-2234Ilbrqowxsmce (2 sources)old RD and ERM (chief complaint) decreased vision (chief complaint) floaters (chief complaint)Onset: 69-89-1051Vgbfnwavpshq (2 sources)Old Retinal Detachment (chief complaint) increased vision (chief complaint)Onset: 61-67-1434Zqydvslugnoh (1 source)retinal detachments (chief complaint)Onset: 09-06-2025 Results Test NameValueInterpretationReference RangeFacilityX-ray reportOrdered By: Gilma Morales on 01-12-7056Yxpib reportGRANT HOSPITAL [facility] [address] [place] [address] XRay Report Signed Patient: Hansel Caraballo MR#: [id number] : 1950 Acct:[id number] Age/Sex: 74 / M ADM Date: 2 5 Loc: SOXD Room: Type: [facility] Attending Dr: Shane Cosme II, MD Copies to: Shane Cosme MD~ Ordering Provider: Shane Cosme MD Date of Service: 01/14/25 XR/XR knee BI 4V: M25.561 - Pain in right knee ([id number]) XR/XR pelvis 1-2V: M25.561 - Pain in [...] There is mildgenu varum deformity with bilateral medialtibiofemoral joint compartment narrowing, left side slightly greater than right where there is boneto bone contact. Mild tricompartment marginal spurring is again seen. Small knee effusions are still noted. There is atherosclerotic disease. IMPRESSION: BILATERAL DEGENERATIVE CHANGES, LEFT SLIGHTLY WORSE THAN RIGHT. Impression dictated by: Gilma Morales M.D.01/14/2025 3:22 PM Dictation Location: [place] [address] Transcribed By: [facility] 01/14/25 1522 Dictated By: Gilma Morales MD 01/14/25 1515 Signed By: 01/14/25 1522 [facility] Work Phone: XR knee BI 4Von [id number] knee BI 4VGRANT HOSPITAL [facility] [employer] [place] [address] XRay Report Signed Patient: Hansel Caraballo MR#: [id number] : 1950 Acct:[id number] Age/Sex: 74 / M ADM Date: 01/14/25 Loc: SOXD Room: Type: [facility] Attending Dr: Shane Cosme II, MD Copies to: Shane Cosme MD Ordering Provider: Shane Cosme MD Date of Service: 01/14/25 XR/XR knee BI 4V: M25.561 - Pain in right knee ([id number]) XR/XR pelvis 1-2V: M25.561 - Pain in [...] Gilma Morales M.D.01/14/2025 3:22 PM Dictation Location: [place] [address] Transcribed By: [facility] 01/14/25 1522 Dictated By: Gilma Morales MD 01/14/25 1515 Signed By: 01/14/[address] [place] [address] Physician [id number] HPLC (Bld) [Mass fraction] on 54-61-4463QbO1f (Bld) [Mass fraction]Hemoglobin A1c/Hemoglobin.total in Blood by HPLCOhio State University Wexner Medical CenterNo Panel InformationOrdered By: Renuka Irizarry on 93-27-4711Gcbxj Strep (POC)[facility] CenterCT CSPINE WO CONon 91-73-7564TC CSPINE WO CONINDICATION: 72 years old; Male. Closed head trauma. [...] effect consistent with small vessel ischemic change. VENTRICLES/EXTRA-AXIAL SPACES: Within normal limits for patient's age. [...] Electronically authenticated by: ESTER MCCRAY Date: 2023-03-05 01:00NormalThSt. Rita's Hospital AUTO DIFFon 61-79-3929OMJQ #0.1 103/ulNormal0.0-0.1Corey HospitalComment on above:Performed By: #### CBC #### [facility] [address] [place] [address] Dr. Day Lizamasophils/100 WBC (Bld)0.9 %Normal0.2-2.0[facility] Comment on above:Performed By: #### CBC #### [facility] [address] [place] [address] [address] Day Fritz #0.2 103/ulNormal0.0-0.7The [facility] HospitalComment on above: Performed By: #### CBC #### [facility] [address] [address] [address] Day Livingstonosinophils/100 WBC (Bld)2.7 %Normal0.9-7.0[facility] Comment on above:Performed By: #### CBC #### [facility] [address] [place] [address] Dr. Day Livingstonrythrocyte distribution width (RBC) [Ratio]12.5 %Ljfylj95.0-15.0 The [facility] HospitalComment on above:Performed By: #### CBC #### [facility] [address] [place] [address] Dr. Day DavisHematocrit (Bld) [Volume fraction]40.7 %Critically low42.0-54.0 [facility] HospitalComment on above:Performed By: #### CBC #### [facility] [address] [place] [address] Dr. Day DavisHemoglobin (Bld) [Mass/Vol]13.9 g/dLCritically low14.0-18.0The [facility] HospitalComment on above:Performed By: #### CBC #### [facility] [address] [place] [address] Dr. Day Woods #0.02 10e3/ulNormal0.00-0.03The [facility] Centerment on above:Performed By: #### CBC #### [facility] [address] [place] [address] Dr. Day DavisIG %0.3 %Normal0.0-0.5The [facility] Medical Centerment on above: Performed By: #### CBC #### [facility] [address] [place] [address] Dr. Day AnguloH #1.8 103/ulNormal1.2-3.8The [facility] on above:Performed By: #### CBC #### [facility] [address] [place] [address] Dr. Day Camarillomphocytes/100 WBC (Bld)26.3 %Brunva61.5-60.0The [facility] Centerment on above:Performed By: #### CBC #### [facility] [address] [place] [address] [address] Day Eldridge DIFF REQNONormalThe [facility] Community HospitalComment on above: Performed By: #### CBC #### [facility] [address] [place] [address] Dr. Day Turner (RBC) [Entitic mass]30.4 oiUuuflg32.9-34.0The [facility] HospitalComment on above:Performed By: #### CBC #### [facility] [address] [place] [address] Dr. Day Turner (RBC) [Mass/Vol]34.2 g/pLKgqlpx59.9-35.2The [facility] HospitalComment on above:Performed By: #### CBC #### [facility] [address] [place] [address] Dr. Day Turner (RBC) [Entitic vol]89.1 hIJtbwcd48.0-94.0The [facility] HospitalComment on above:Performed By: #### CBC #### [facility] [address] [place] [address] Dr. Day Hall #0.5 103/ulNormal0.3-0.8The [facility] HospitalComment on above:Performed By: #### CBC #### [facility] [address] [place] [address] Dr. Day Colinocytes/100 WBC (Bld)6.8 %Normal1.7-12.0The [facility] Comment on above:Performed By: #### CBC #### [facility] [address] [place] [address] Dr. Day Sanchez #4.4 103/ulNormal1.4-6.5The [facility] Centerment on above:Performed By: #### CBC #### [facility] [address] [place] [address] Dr. Day Meltonutrophils/100 WBC (Bld)63.0 %Ubnvfx02.0-75.0The Jose C HospitalComment on above:Performed By: #### CBC #### [facility] [address] [address] [address] Day DavisPlatelet mean volume (Bld) [Entitic vol]9.2 fLCritically low 9.5-13.5The [facility]Com[facility] on above:Performed By: #### CBC #### [facility] [address] [address] [address] Day DavisPLT226 103/ctKvltkq483-065Clw [facility] on above: Performed By: #### CBC #### [facility] [address] [address] [address] Day DavisRBC4.57 106/ulCritically low4.70-6.10The [facility]Com[facility] on above:Performed By: #### CBC #### [facility] [address] [place] [address] Dr. Day DavisWBC7.0 103/ulNormal4.0-11.0The [facility] on above: Performed By: #### CBC #### [facility] [address] [place] [address] Dr. Day DavisGLYCOHEMOGLOBIN A1Con 76-14-5990LCJ RECOMMENDATIONSEE BELOWNormal The [facility] on above:Result Comment: ADA RECOMMENDED LIMIT 4.0 - 6.0 ADA THERAPEUTIC TARGET < 7.0 ACTION SUGGESTED > 7.0Performed By: #### A1C #### [facility] [address] [place] [address] Dr. Day DavisGlucose [Mass/Vol]209 mg/dLNormalThe [facility] HospitalCom[facility] on above:Performed By: #### A1C #### [facility] [address] [place] [address] Dr. Day DavisHbA1c (Bld) [Mass fraction]8.9 %Critically high4.5-6.2The [facility] on above:Performed By: #### A1C #### [facility] [address] [place] [address] Dr. Day LawsonC AUTO DIFFon 89-90-1369LOLZ #0.1 103/ulNormal0.0-0.1The [facility] HospitalComment on above:Performed By: #### CBC #### [facility] [address] [address] [address] Day DavisBasophils/100 WBC (Bld)0.7 %Normal0.2-2.0The [facility] Comment on above:Performed By: #### CBC #### [facility] [address] [address] [address] Day Fritz #0.2 103/ulNormal0.0-0.7The [facility] HospitalComment on above: Performed By: #### CBC #### [facility] [address] [place] [address] Dr. Day Livingstonosinophils/100 WBC (Bld)3.4 %Normal0.9-7.0The [facility] Comment on above:Performed By: #### CBC #### [facility] [address] [place] [address] Dr. Day Livingstonrythrocyte distribution width (RBC) [Ratio]12.1 %Hrhkqr71.0-15.0 The [facility] HospitalComment on above:Performed By: #### CBC #### [facility] [address] [place] [address] Dr. Day DavisHematocrit (Bld) [Volume fraction]39.5 %Critically low42.0-54.0 The [facility] HospitalComment on above:Performed By: #### CBC #### [facility] [address] [place] [address] Dr. Day DavisHemoglobin (Bld) [Mass/Vol]13.3 g/dLCritically low14.0-18.0The [facility] HospitalComment on above:Performed By: #### CBC #### [facility] [address] [place] [address] Dr. Day Woods #0.01 10e3/ulNormal0.00-0.03The [facility] HospitalComment on above:Performed By: #### CBC #### [facility] [address] [address] [address] Day Woods %0.1 %Normal0.0-0.5The [facility] on above: Performed By: #### CBC #### [facility] [address] [address] [address] Day Mcqueen #1.8 103/ulNormal1.2-3.8The [facility] HospitalComment on above:Performed By: #### CBC #### [facility] [address] [place] [address] Dr. Day Angulohocytes/100 WBC (Bld)25.2 %Fylawy89.5-60.0The [facility] on above:Performed By: #### CBC #### [facility] [address] [place] [address] Dr. Day PerezUAL DIFF REQNONormalThe [facility] HospitalComment on above: Performed By: #### CBC #### [facility] [address] [place] [address] Dr. Day Turner (RBC) [Entitic mass]30.4 jcHxdale76.9-34.0The [facility] on above:Performed By: #### CBC #### [facility] [address] [place] [address] Dr. Day Turner (RBC) [Mass/Vol]33.7 g/wXDegizb41.9-35.2The [facility] on above:Performed By: #### CBC #### [facility] [address] [place] [address] Dr. Day Turner (RBC) [Entitic vol]90.2 eYYvikyn49.0-94.0The [facility] on above:Performed By: #### CBC #### [facility] [address] [place] [address] Dr. Day Hall #0.7 103/ulNormal0.3-0.8The [facility] HospitalCom[facility] on above:Performed By: #### CBC #### [facility] [address] [address] [address] Day Colinocytes/100 WBC (Bld)9.8 %Normal1.7-12.0The [facility] Comment on above:Performed By: #### CBC #### [facility] [address] [place] [address] Dr. Day MeltonUT #4.3 103/ulNormal1.4-6.5The [facility] HospitalComment on above:Performed By: #### CBC #### [facility] [address] [place] [address] Dr. Day Meltonutrophils/100 WBC (Bld)60.8 %Ojsghu55.0-75.0The [facility] HospitalComment on above:Performed By: #### CBC #### [facility] [address] [place] [address] Dr. Day DavisPlatelet mean volume (Bld) [Entitic vol]8.8 fLCritically low 9.5-13.5The [facility] HospitalComment on above:Performed By: #### CBC #### [facility] [address] [place] [address] Dr. Day DavisPLT214 103/igJyxbtn741-318Qre [facility] HospitalComment on above: Performed By: #### CBC #### [facility] [address] [place] [address] Dr. Day DavisRBC4.38 106/ulCritically low4.70-6.10The [facility] HospitalComment on above:Performed By: #### CBC #### [facility] [address] [place] [address] Dr. Day DavisWBC7.0 103/ulNormal4.0-11.0The [facility] HospitalComment on above: Performed By: #### CBC #### [facility] [address] [place] [address] Dr. Day DavisGLYCOHEMOGLOBIN A1Con 72-86-1609JMS RECOMMENDATIONSEE BELOWNormal The [facility] HospitalComment on above:Result Comment: ADA RECOMMENDED LIMIT 4.0 - 6.0 ADA THERAPEUTIC TARGET < 7.0 ACTION SUGGESTED > 7.0Performed By: #### A1C #### [facility] [address] [place] [address] Dr. Day DavisGlucose [Mass/Vol]177 mg/dLNormalThe [facility] HospitalComment on above:Performed By: #### A1C #### [facility] [address] [place] [address] Dr. Day DavisHbA1c (Bld) [Mass fraction]7.8 %Critically high4.5-6.2The [facility] HospitalComment on above:Performed By: #### A1C #### [facility] [address] [place] [address] Dr. Day DavisPROF 14(COMP METB)on 31-01-2612Ywgtqvw [Mass/Vol]4.0 g/dLNormal 3.4-5.0The [facility] HospitalComment on above:Performed By: #### CMP #### [facility] [address] [place] [address] Dr. Day DavisAlbumin/Globulin [Mass ratio]1.2 {ratio}NormalThe [facility] HospitalComment on above:Performed By: #### CMP #### [facility] [address] [place] [address] Dr. Day Lynne [Catalytic activity/Vol]70 U/PIilmpk68-472Ehd [facility] HospitalComment on above:Performed By: #### CMP #### [facility] [address] [place] [address] Dr. Day Cardona [Catalytic activity/Vol]37 U/MWvnhul71-66Wah [facility] HospitalComment on above:Performed By: #### CMP #### [facility] [address] [place] [address] Dr. Day Gallegos gap [Moles/Vol]11.4 mmol/LNormalThe [facility] on above:Performed By: #### CMP #### [facility] [address] [place] [address] Dr. Day Chandler [Catalytic activity/Vol]18 U/EHkcooc72-36Qjt [facility] HospitalComment on above:Performed By: #### CMP #### [facility] [address] [address] [address] Day DavisBilirubin [Mass/Vol]0.4 mg/dLNormal0.2-1.0[facility] Comment on above:Performed By: #### CMP #### [facility] [address] [address] [address] Day DavisCalcium [Mass/Vol]8.7 mg/dLNormal8.5-10.1The [facility] Comment on above:Performed By: #### CMP #### [facility] [address] [place] [address] Dr. Day DavisChloride [Moles/Vol]104 mmol/SFmwern07-215SakCorey Hospital Comment on above:Performed By: #### CMP #### [facility] [address] [place] [address] Dr. Day DavisCO2 [Moles/Vol]26.8 mmol/QAykjdg63.0-32.0[facility] Comment on above:Performed By: #### CMP #### [facility] [address] [place] [address] Dr. Day DavisCreatinine [Mass/Vol]0.94 mg/dLNormal0.70-1.30The [facility] HospitalComment on above:Performed By: #### CMP #### [facility] [address] [place] [address] Dr. Day LivingstonGFR-AF BRUNEIAN>60Normal>=60The [facility] HospitalComment on above:Performed By: #### CMP #### [facility] [address] [place] [address] Dr. Day LivingstonGFR-NON AF BRUNEIAN>60Normal>=60The [facility] HospitalComment on above:Performed By: #### CMP #### [facility] [address] [place] [address] Dr. Day DavisGlobulin (S) [Mass/Vol]3.3 g/dLNormalThe [facility] HospitalComment on above:Performed By: #### CMP #### [facility] [address] [address] [address] Day DavisGlucose [Mass/Vol]183 mg/dLCritically bqxi70-940Sku [facility] HospitalComment on above:Performed By: #### CMP #### [facility] [address] [address] [address] Day DavisPotassium [Moles/Vol]4.2 mmol/LNormal3.5-5.1[facility] Comment on above:Performed By: #### CMP #### [facility] [address] [address] [address] Day DavisProtein [Mass/Vol]7.3 g/dLNormal6.4-8.2[facility] Comment on above:Performed By: #### CMP #### [facility] [address] [address] [address] Day DavisSodium [Moles/Vol]138 mmol/KSuaayf636-586HjfCorey Hospital Comment on above:Performed By: #### CMP #### [facility] [address] [address] [address] Day DavisUrea nitrogen [Mass/Vol]21.0 mg/dLCritically high7.0-18.0[facility] HospitalComment on above:Performed By: #### CMP #### [facility] [address] [address] [address] Day DavisUrea nitrogen/Creatinine [Mass ratio]22.3 mg/mgNormalThLutheran HospitalComment on above:Performed By: #### CMP #### [facility] [address] [address] [address] Day DavisOPERATIVE REPORTon 01-33-1649ABODTEUFY REPORT[address] [id number] OPERATIVE REPORT PATIENT NAME: HANSEL CARABALLO : 1950 MED REC NO: [id number] ROOM: ACCOUNT NO: [id number] ADMIT DATE: 12/09/2018 PROVIDER: David Castillo DATE [...] a complete vitrectomy. Following vitrectomy, the patient's solomon break was marked with intraocular diathermy. Complete [...] day with RVA. DAVID CASTILLO MJ/V_SSPRA_T Doc#: [id number] CC:[facility] Vital Signs Date TimeVital SignValuePerforming HnocaxpadYyiplnpq76-93-6461 11:35-0400 Diastolic blood mm[Hg]Alex Lynch rohith [facility] Qjlsotviwx94-43-9686 11:35-0400Systolic blood kecoailq011 mm[Hg][facility] 07-25-2025 09:45-0400Diastolic blood bukviagb85 mm[Hg]Sandra Archer MD Work Phone: [facility]09-15-2025 09:45-0400 Systolic blood huskoscu794 mm[Hg]Sandra Archer MD Work Phone: [phone]09-15-2025 09:32-0400 Heart rate66 /minSandra Archer MD Work Phone: [phone]09-15-2025 09:25-0400 Body yaerqj401.53 cmSandra Archer MD Work Phone: [phone]09-15-2025 09:25-0400 Body mass index (BMI) [Ratio]29.1 kg/x3BakjbuSandra Archer MD Work Phone: [phone]09-15-2025 09:25-0400 Body dlvlnu67.83 kgSandra Archer MD Work Phone: [phone]05-12-2025 09:25-0400 Body ajvrxi555.53 cmSandra Archer MD Work Phone: [phone] [place], [place] 164[address]05-12-2025 09:25-0400 Body mass index (BMI) [Ratio]1.4 kg/f0IkjhomSandra Archer MD Work Phone: [phone]05-12-2025 09:25-0400 Body weight4.53 kgSandra Archer MD Work Phone: [phone] [place], [place] 1642405-12-2025 09:25-0400 Diastolic blood yndbpxwf88 mm[Hg]Sandra Archer MD Work Phone: [phone] [place], [place] 1642405-12-2025 09:25-0400 Heart rate60 /minSandra Archer MD Work Phone: [phone] [place], [place] 1642405-12-2025 09:25-0400 Systolic blood umeszavs784 mm[Hg]Sandra Archer MD Work Phone: [phone] [place], [place] 1642403-07-2025 10:48-0500 Body utanty115.53 cmSandra Archer MD Work Phone: [phone] [place], [place] 1642403-07-2025 10:48-0500 Body mass index (BMI) [Ratio]29.4 kg/c6ZyvftiSandra Archer MD Work Phone: [phone] [place], [place] 1642403-07-2025 10:48-0500 Body rmuahr73.62 kgSandra Archer MD Work Phone: [phone] [place], [place] 164[address]02-03-2025 09:35-0500 Body .53 cm[facility]02-03-2025 09:35-0500Body mass index (BMI) [Ratio]29.5 kg/g9PfswkybkgOhio [facility]02-03-2025 09:35-0500Body .07 kgOhio [facility]02-03-2025 09:35-0500Diastolic blood tyndnilk96 mm[Hg][facility] 12-13-2024 09:35-0500Heart rate67 /[facility] 12-13-2024 09:35-0500Systolic blood lzqsjqhu106 mm[Hg][facility]11-07-2024 09:39-0500Body ebquzq774.53 cmOhio [facility]11-07-2024 09:39-0500Body mass index (BMI) [Ratio]28.5 kg/d0WiicbcbxsOhio [facility]11-07-2024 09:39-0500Body .9 kgOhio [facility]11-07-2024 09:39-0500Diastolic blood mm[Hg][facility]11-07-2024 09:39-0500Heart rate64 /[facility]11-07-2024 09:39-0500Systolic blood xspyelic309 mm[Hg][facility]07-18-2024 09:26-0400Body .53 cmOhio [facility]07-18-2024 09:26-0400Body mass index (BMI) [Ratio]28.3 kg/g6DfviqrujsOhio [facility] University [facility]07-18-2024 09:26-0400Body .45 kg [facility]07-18-2024 09:26-0400Diastolic blood cetqbhjf83 mm[Hg][facility]07-18-2024 09:26-0400Heart rate62 /min [facility]07-18-2024 09:26-0400Systolic blood gcorvnnt513 mm[Hg][facility]03-18-2024 09:27-0400Body ednetz631.53 cmOhio [facility]03-18-2024 09:27-0400Body mass index (BMI) [Ratio]30.2 kg/w6MnwvlsegcOhio [facility]03-18-2024 09:27-0400Body dbkazv12.4 kgOhio [facility]03-18-2024 09:27-0400Diastolic blood phlmxyhe55 mm[Hg][facility]03-18-2024 09:27-0400 Heart rate71 /[facility]03-18-2024 09:27-0400Systolic blood agkizqfv405 mm[Hg][facility]03-08-2024 08:51-0500 Body drpejg318.53 cmOhio [facility]03-08-2024 08:51-0500Body mass index (BMI) [Ratio]29.9 kg/i9FdxhbdtktOhio State University [facility]03-08-2024 08:51-0500Body ybwwml88.44 kgOhio [facility] University [facility]03-08-2024 08:51-0500Diastolic blood jdoovkis24 mm[Hg][facility] 01-16-2024 08:51-0500Heart rate80 /[facility] 01-16-2024 08:51-7133KdX4% (BldA) [Mass fraction]98 %[facility]03-08-2024 08:51-0500Systolic blood cgewhboz209 mm[Hg][facility]11-15-2023 09:30-0500Body pwyuup492.53 cmSandra Archer Other [employer] Other 11-15-2023 09:30-0500Body mass index (BMI) [Ratio] 30.13 kg/r5XirnknSandra Archer Other [employer] Other 11-15-2023 09:30-0500Body .9 kgSandra Archer Other [facility] Other 11-15-2023 09:30-0500Diastolic blood kxoybrsv96 mm[Hg] Sandra Archer Other [employer] Other 11-15-2023 09:30-5735LrS8% (BldA) [Mass fraction]97 % Sandra Archer Other [employer] Other 11-15-2023 09:30-0500Systolic blood mm[Hg] Sandra Archer Other [employer] Other 09-28-2023 10:00-0400Body shsarn005.53 cmKileyleilani Archer Other [facility] Other 09-28-2023 10:00-0400Body mass index (BMI) [Ratio] 28.67 kg/v3Kxkcpk Suzi Other [facility] Other 09-28-2023 10:00-0400Body .36 kgSandra Suzi Other [employer] Other 09-28-2023 10:00-0400Diastolic blood mm[Hg] Sandra Archer Other [employer] Other 09-28-2023 10:00-0400Systolic blood lysueevn624 mm[Hg] Sandra Archer Other [facility] Other 08-15-2023 09:30-0400Body .53 cmKileyleilani Archer Other [facility] Other 08-15-2023 09:30-0400Body mass index (BMI) [Ratio] 28.38 kg/z8Yqplnu Braun Other [employer] Other 08-15-2023 09:30-0400Body .45 kgShirleydeanaleilani Archer Other [facility] Other 08-15-2023 09:30-0400Diastolic blood civfcevf58 mm[Hg] Sandra Archer Other [facility] Other 08-15-2023 09:30-0400Systolic blood yqqtstup790 mm[Hg] Sandra Suzi Other [facility] Other Encounters Encounter DateEncounter TypeCare ProviderFacilityStart: 09-06-2025 End: 76-69-3358Bqcwrbhfx identifierSameer Syed [facility] Work Phone: rva FindlayStart: 35-01-8493zvxgjgrcftCepyefFormerly Oakwood Hospitaltart: 07-25-2025 End: 45-67-7974axfaoazdjzBubloj E Braun MD Work Phone: [facility] Work Phone: Start: 07-25-2025 End: 28-32-0116Hmmejrj encounter procedureSandra Archer MD-[facility] Work Phone: Start: 03-21-2025 End: 82-24-0464bzapcppixqDaxvsa E Braun MD Work Phone: [facility] Work Phone: Start: 03-21-2025 End: 58-45-5828Yiguity encounter Elian Archer MD Work Phone: [facility] Work Phone: Start: 01-14-2025 End: 15-33-8896Xhsoofr encounter Elian Archer MD Work Phone: [facility] Work Phone: Start: 01-14-2025 End: 23-13-8371kjaqphriedOaitcq M [place] IIFacility:[facility]alt[facility]art: 33-23-5122Baaulul encounter procedureSandra Archer MD Work Phone: [facility]art: 12-13-2024 End: 23-65-8723sibhpbesxeOmsyiojcsMount Carmel Health System Work Phone: Start: 12-13-2024 End: 34-10-5746Pitigsx encounter procedureC[facility] Physician GroupWhite Hospital Work Phone: Start: 10-28-2024 End: 00-61-7591Iwobvt outpatient visit 15 minutesEmanup Mariee MD Work Phone: noms SWS DERMComment on above:Seborrheic keratosis (Primary Dx); Lentigines; Melanocytic nevus of trunk; Dermatofibroma; History of malignant melanoma of skinStart: 10-28-2024 End: 92-36-9138jxjqfvudutFOPLS Leilani Schreiber AvailableStart: 10-28-2024 End: 97-19-1739Qsjjov flowsheetEmanup Mariee MD Work Phone: [facility] SWS DERMStart: 10-28-2024 End: 38-86-4085Zyrqft flowsheetNatalee Mariee MD Work Phone: [facility] SWS DERMStart: 10-27-2024 End: 86-66-1988Mtgsyy Al Shweiki Work Phone: [facility] [place]Start: 19-37-4328qlhkaedwjtGjnjgj Al Shweiki [facility]art: 09-16-2024 End: 68-01-2815Ixictrf encounter procedureC[facility] GroupWhite [facility] Work Phone: Start: 08-20-2024 End: 82-87-3696Ykmnxlmia identifierSameer Al Shweiki Work Phone: [facility] [place]Start: 08-20-2024 End: 10-56-5161Juzpsf Al Shweiki Work Phone: [facility] [place]edoStart: 05-27-2024 End: 65-26-1908drnnmamzpsHupamnccuUpper [facility] Medical Center Work Phone: Start: 05-27-2024 End: 14-39-5694Ynitoqw encounter procedureC[facility] GroupWhite [facility] Work Phone: Start: 15-92-2838Bvw-patient / Non-visitFirbuchanan general hospital [facility] Work Phone: Start: 01-26-2024 End: 35-94-5054smspxyxtorPvxurfzonMount Carmel Health System Work Phone: Start: 01-26-2024 End: 05-40-5855Aagsaxz encounter procedureC[facility] Work Phone: Start: 01-16-2024 End: 55-40-0640Srsqufm encounter procedureC[facility] Work Phone: Start: 37-38-1328Vif-patient / Non-visitC[facility] Work Phone: Start: 11-04-2023 End: 96-17-7637hvygpthhnbNuofvt Braun Other [employer] Other Start: 24-07-2837Shhtijtxd by computer linkMarcileilani [facility] Centertart: 10-01-2023 End: 25-16-8464gbdkpxdqgiFeyvpx Braun Other [employer] Other Start: 91-49-5967Xwjczmmvh encounterMarcia [facility] Medical Centertart: 09-24-2023 End: 81-50-6904jkhwlmxhzhMabvnj Braun Other [employer] Other Start: 61-49-8963Iqmnhid encounter procedureMarcia [facility] Centertart: 08-13-2023 End: 26-68-3446Hhkzzaqbw identifiermed Chastity Alkaliby Work Phone: RVLeilani SanduskyStart: 08-13-2023 End: 80-54-7976Apmal Chastity Alkaliby Work Phone: RVLeilani [place]uskyStart: 08-07-2023 End: 28-04-8885qrjxjovkdmHbpyxk Braun Other [employer] Other Start: 71-24-4667Guqrhq outpatient visit 15 minutes Sandra Tavarez [facility] ClinicStart: 06-26-2023 End: 64-46-3919wdbwreuizhKoehrg Archer Other [employer] Other Start: 67-24-2608Fkuohpmhx encounterSandra Ross Referral CoordinatorStart: 06-24-2023 End: 80-70-1454hrgocxszdnSfidyn Archer Other [employer] Other Start: 39-16-5652Mbjqhw outpatient visit 25 minutes Sandra [facility] ClinicStart: 34-41-0569Euztzvtqx encounterSandra Ross [facility] ClinicStart: 06-23-2023 End: 56-80-7803eujbakntvxWvwaot Archer Other [employer] Other Start: 40-49-8738Eoelvpugk by computer linkSandra Ross [facility] Centertart: 03-04-2023 End: 09-18-4731xffvnftqqdPM KIM E KNIGHT .Facility:Z9Likeu: 12-24-2022 End: 06-13-7703buxduwlltlYY KIM E KNIGHT .Facility:T0Rpvyv: 12-19-2022 End: 56-71-8459ospnjoqdkeJM KIM E KNIGHT .Facility:M5Jsvmr: 08-15-2022 End: 92-74-8367Jgsaxfera identifiermed M Alkaliby Work Phone: [facility] [place]kyStart: 08-15-2022 End: 86-97-2343Zjikp Chastity Alkaliby Work Phone: [facility] [place]kyStart: 08-09-2022 End: 90-02-8856vbmbppqxtqII KIM E KNIGHT .Facility:F4Taqyn: 07-17-2021 End: 35-57-0003Ipprnf outpatient visit 15 minutesCharles K Liliane Work Phone: RVLeilani SanduskyStart: 06-28-2020 End: 44-22-2789Eqnouphhl identifierCharles K Liliane Work Phone: RVLeilani SanduskyStart: 06-28-2020 End: 30-94-3249Yfbuxxv K Liliane Work Phone: RVLeilani SanduskyStart: 12-29-2019 End: 52-74-3435Jwkyehisn identifierCharles K Liliane Work Phone: [facility] [place]kyStart: 12-29-2019 End: 59-38-0895Bknccxf K Liliane Work Phone: [facility] [place]kyStart: 06-23-2019 End: 69-49-5718Kuwhuzmiq identifierCharles K Liliane Work Phone: [facility] [place]kyStart: 06-23-2019 End: 39-26-1374Ufbpxei K Liliane Work Phone: [facility] [place]Start: 03-10-2019 End: 15-44-8774Fauubxmjc identifierCharles K Liliane Work Phone: [facility] [place]Start: 03-10-2019 End: 67-90-5397Qhewsap K Liliane Work Phone: [facility] [place]Start: 01-27-2019 End: 61-33-4779Jiigyyhzq identifierCharles K Liliane Work Phone: [facility] [place]Start: 01-27-2019 End: 00-58-2860Kngpenw K Liliane Work Phone: [facility] [place]Start: 01-27-2019 End: 31-31-8128Wtqvwd follow up visit related to original pxSamegeraldo Thorne MD, CVP PhysiciansStart: 01-13-2019 End: 82-47-4339Wnvttb follow up visit related to original pxAlex Thorne MD, CVP PhysiciansStart: 01-13-2019 End: 52-77-7610Tjfgxtphn Herb Momin Work Phone: RVLeilani BarclayuskyStart: 01-13-2019 End: 10-58-9756Ufmdhew K Dabbs Work Phone: RVLeil[facility] BarclayuskyStart: 12-17-2018 End: 20-87-0325Xquirxsag identifierSameer Al Shweiki MDRVA Mccormick WildwoodStart: 12-17-2018 End: 25-72-1838Wqersz M Joshi Work Phone: RVLeil[facility] Mccormick WildauroraStart: 12-17-2018 End: 36-68-0620Wpsxbh follow up visit related to original pxSameer Al Denise SILVESTREP PhysiciansStart: 12-10-2018 End: 27-64-8455Ravekl follow up visit related to original pxSameer Al Denise RUIZ CV PhysiciansStart: 12-10-2018 End: 59-05-8460Biswworao identifierSameer Al Shweiki MDRVA Anny WildwoodStart: 12-10-2018 End: 63-89-8652Wlaeyl M Joshi Work Phone: RVLeil[facility] Mccormick WildauroraStart: 12-09-2018 End: 75-54-6679Bglhbexhj identifierSameer Al Shweiki [facility] OutpatientStart: 12-09-2018 End: 90-15-6747Mhyxbr M Joshi Work Phone: [facility] OutpatientStart: 12-09-2018 End: 29-00-7982Igxatqh encounter procedureDAVID RiversPatton State Hospitaltart: 12-06-2018 End: 63-75-2669Ldmpcb outpatient visit 40 minutesDavid Castillo Work Phone: RVLeilani Mccormick WildauroraStart: 03-11-2018 End: 83-24-2041Ttkznzaqg Herb Momin Work Phone: RVLeilani [place]uskyStart: 03-11-2018 End: 62-03-9425Tjrfefw K Liliane Work Phone: rv[facility] [place]Start: 03-12-2017 End: 32-85-7331Sazbkggfr identifierCharles K Liliane Work Phone: [facility] [place]Start: 03-12-2017 End: 26-80-2407Ovvppwb K Liliane Work Phone: [facility] [place]Start: 03-13-2016 End: 55-73-5724Rvcvvsbzx identifierCharles K Liliane Work Phone: [facility] [place]Start: 03-13-2016 End: 73-79-2207Zdvfbvr K Liliane Work Phone: [facility] [place]Start: 03-15-2015 End: 55-29-7530Vdxdzstir identifierCharles K Liliane Work Phone: [facility] [place]Start: 03-15-2015 End: 79-01-4930Tzsdrmq K Liliane Work Phone: [facility] [place]Start: 03-16-2014 End: 10-72-2228Atcmkjwgb identifierCharles K Liliane Work Phone: [facility] [place]Start: 03-16-2014 End: 52-32-9950Bgwjimw K Liliane Work Phone: [facility] [place]Start: 03-17-2013 End: 75-22-3034Bljffsvif identifierCharles K Liliane Work Phone: [facility] [place]Start: 03-17-2013 End: 37-02-0594Rwggdtz K Liliane Work Phone: [facility] [place]Start: 03-15-2013 End: 18-64-7216Qyjwrvjtp identifierIra K Orgel Work Phone: [facility] [place]Start: 03-15-2013 End: 73-97-8719Zgo K Orgel Work Phone: [facility] [place] Procedures DateProcedureProcedure DetailPerforming ClinicianStart: 09-06-2025 End: 49-04-2251Pyimoa photography w/interpretation & reportSamegeraldo Thorne Start: 83-71-8402DNU No ChargeSameer Syed WalkerStart: 09-06-2025 End: 03-69-3648FAJ No Charge Uni Or BiSamegeraldo Thorne MDStart: 29-40-3873Ezcsr radiography of pelvisSandra Archer MD Work Phone: Start: 73-76-5820F-ray of both knees, four viewsSandra Archer MD Work Phone: Start: 08-20-2024 End: 79-49-4816Spuohkjrqdge ophthalmic imaging retinaStruman Thorne MDStart: 29-95-9465Zrrtn Strep (POC)Start: 08-13-2023 End: 60-85-9700Fqslyfkessus ophthalmic imaging retinaStruman Thorne MDStart: 08-15-2022 End: 69-20-2015Mowxwtafwyug ophthalmic imaging retinaStruman Thorne MDStart: 50-86-5113NFF screeningDR LORRAINE PATEL .Comment on above:Performed By: #### PSAD #### [facility] [address] [place] [address] Dr. Day DavisStart: 07-17-2021 End: 27-42-9944Tfaspzcwlvzq ophthalmic imaging retinaStruman Thorne MDStart: 07-17-2021 End: 34-24-7293Blhwmu Photos No Charge BilateralSameer Syed Walker MDStart: 06-28-2020 End: 59-39-1232Ntamoscjidac ophthalmic imaging retinaStruman Thorne MDStart: 12-29-2019 End: 76-06-8347Swsaaovfppmc ophthalmic imaging retinaStruman Thorne MDStart: 06-23-2019 End: 24-29-0700Huvnishshdet ophthalmic imaging retinaStruman Thorne MDStart: 03-10-2019 End: 55-35-6095Vweivjgrkfqv ophthalmic imaging retinaStruman Thorne MDStart: 12-09-2018 End: 72-81-3122Bjt retinal dtchmnt w/vitrectomy any methSameer Al Shweiki MD Start: 28-35-3594VQD GLUCOSE FINGERSTICKMCORNELIO JOSHIStart: 45-85-8693YATFOD DAVID JOSHIStart: 55-66-1458SNBCAAGFGEYAV JOSHIStart: 68-47-8447Lacyukwrqu pulse oximetryDAVID TORIBIOSHIStart: 57-62-3448KTCGWDQUB DEEP BREATHING AND COUGHING DAVID JOSHIStart: 75-25-7626CMKFJZWO OXYGEN THERAPY PROTOCOLDAVID JOSHIStart: 01-37-0030XSLCNP PHYSICIAN (SPECIFY)DAVID JOSHIStart: 14-68-0280MVYQXLV COMMUNICATIONMANDCATRACHO JOSHIStart: 78-59-2373XEQYMIMWU MONITORINGMANDCATRACHO TORIBIOSHIStart: 50-83-8457BGETV SIGNSDAVID JOSHIStart: 75-67-3096INTPICHMM PATIENTDAVID CATSILLO Start: 91-38-4810KKT 12-LEADMANDCATRACHO JOSHIStart: 25-29-5106YYUXBCFXRE W/GFR POINT OF CAREMANDCATRACHO JOSHIStart: 48-05-0519BDDPRYOK OXYGEN THERAPY PROTOCOLMANDCATRACHO ACOSTAI Start: 94-68-4453FHGZEK PHYSICIAN (SPECIFY)DAVID JOSHIStart: 12-33-5727QFJ CHEM8 INCLUDES CALC. ANION GAPMANDCATRACHO JOSHIStart: 70-93-8520BXTD GLUCOSEMANDCATRACHO JOSHIStart: 41-04-5858BBWDJ SIGNSDAVID JOSHIStart: 12-06-2018 End: 37-31-2741Pdfiqo photography w/interpretation & reportSameer Syed Walker MD Start: 03-11-2018 End: 81-58-9155Hpebipbotoab ophthalmic imaging retinaSameer Syed Walker MDStart: 03-12-2017 End: 20-73-6698Qmksarwoyyfy ophthalmic imaging retinaStruman Thorne MDStart: 03-13-2016 End: 82-65-7690Xliycaujitav ophthalmic imaging retinaSpericoer Syed Walker MDStart: 03-15-2015 End: 76-01-8302Vwyjuefwpwpl ophthalmic imaging retinaSpericoer Syed Walker MDStart: 03-16-2014 End: 61-80-4767Gqrnj medical xm&eval comprhnsv estab pt 1/>Alex Thorne MD Start: 03-17-2013 End: 62-74-3210Slrme medical xm&eval comprhnsv estab pt 1/>Alex Thorne MD Plan of Treatment DateCare ActivityDetailAuthorStart: 90-36-8357Tyuaggkh, Yr Dfe Colors OctCV Physicians Work Phone: Start: 10-27-2025 End: 23-84-6551Niyzttq encounter /18/2025 3:30 PM EST Office Visit [facility] [address] [place] [address] Natalee Mariee MD [address] [place] [address] [facility] DERMStart: 43-57-5780Hdfubcm cessation educationTobacco cessation counselingCV PhysiciansStart: 88-98-6483Iitbfvbg, Charles DFE OCT COLORSCVP Physicians Work Phone: Start: 61-00-6655Pqikt radiography of pelvisXR pelvis 1-2VKettering Healthtart: 97-93-9721Z-ray of both knees, four viewsXR knee BI 4VKettering Healthtart: 81-38-0422CR Knee - bilateral 4 ViewsKettering Healthtart: 19-03-8850MA Pelvis 1 or 2 [facility]: 51-61-5210Ydkwxmy referral [facility] Work Phone: Start: 10-28-2024 End: 59-58-4407Ybiuqte encounter /19/2024 3:30 PM EST Office Visit [facility] [address] [place] [address] Natalee Mariee MD [address] [place] [address] ArrivedNOMS [facility] DERMComment on above:ArrivedStart: 48-20-1900Tamkpdpan vaccinationInfluenza Vaccine (#1)[facility] HealthcareStart: 80-21-2491Wyhxlxq cessation educationTobacco cessation counselingCVP Physicians Start: 48-71-8370Mxmwjyc cessation educationTobacco cessation counselingCVP PhysiciansStart: 13-49-6740Ggkcdwh EducationHealth Information for You: MedlinePl~[facility] Work Phone: Start: 39-04-1607Hsbtdeq cessation educationTobacco cessation counselingCVP PhysiciansStart: 68-46-7706Ypzlaqm cessation education Tobacco cessation counselingCVP PhysiciansStart: 51-12-2050Ncgwrvpunfnw Vaccine: 65+ Years (1 of 1 - PCV)Pneumococcal Vaccine: 65+ Years (1 of 1 - PCV)[facility] HealthcareStart: 72-48-6578Mdqszna cessation educationTobacco cessation counselingCVP PhysiciansStart: 43-27-0310Ifmksabzp for malignant neoplasm of colonNOMS HealthcareComprehensive metabolic 1999 panel - Serum or Plasma [facility] CenterComprehensive metabolic 1999 panel - Serum or PlasmaOhio State University Wexner Medical CenterMicroalbumin [Mass/volume] in Urine [facility] CenterPatient referralSub[facility] Work Phone: [facility] Immunizations Immunization DateImmunizationNotesCare QjryvjifSlxeslds69-97-9423hysgkkz toxoid, reduced diphtheria toxoid, and acellular pertussis vaccine, adsorbedNatalee Mariee MD Work Phone: [facility] InstituteUaojjwtvjm58-44-0379Uheanj Purple Cap SARS-CoV-2 VaccinationNtaalee Mariee MD Work Phone: [facility] InstituteQsuhtvkrcu84-16-1419Hkniqo Purple Cap SARS-CoV-2 VaccinationNatalee Mariee MD Work Phone: [facility] InstituteShingrix 50 MCG/0.5ML; Translations: [Shingrix 50 MCG/0.5ML]Sandra Archer Other [place] [facility] Other Payers DatePayer CategoryPayerPolicy [id number] Health InsuranceTRANSAMERICA Member Subscriber Plan / Payer (Effective 2020- Present) Name: Hansel Craaballo Relation to Subscriber: Self Name: Hansel Caraballo Payer ID: Not on file Group ID: Not on file Type: Not on file Address: [address] [place] [id number] 2017Medicare MEDICARE ..[id number] [id number] [id number] 1960Self-[id number] 1960Unknown [id number] 2..1.059681.3.579.2. [id number] 2..1.704300.3.57[id number] 2..1.770031.3.57[id number] 2.0.1.037607.3.57[id number] 2.0.1.498168.3.57[id number] 2.16.840.1.058787.3.57[id number] 2.16.840.1.581960.3.57[id number] 2.16.840.1.313541.3.57[id number] 2.16.840.1.20[id number] 2.16.840.1.246074.3.579.2.531 Social History DateTypeDetailFacilityUnknown if ever smokedLivonia EVRST Other Start: 11-18-2023 End: 72-95-7815Acx Assigned At [facility] Other Start: 01-16-2024 End: 72-83-8293Exihjvv smoking status NHISNever smoked tobacco (finding) [facility]: 92-85-3858Fcx Ass[facility]: 56-37-1282Pcdqitk smoking status NHIS Ex-smokerNOWI HealthcareStart: 04-10-1966 End: 30-22-7370Jutdosd of tobacco useCurrent smokerNOMS HealthcareStart: 04-10-1966 End: 02-53-1717Waeevhd of tobacco useCigarette SmokerNOWI HealthcareStart: 09-10-2023 End: 71-43-0458Ncejhwaiiu smoked current (pack per day) - Guzgacmx3SMQT HealthcareStart: 00-74-4961Bxhnloy use and exposureSmokeless tobacco non-user [facility] HealthcareStart: 11-18-2023 End: 65-77-4567Pqqnukket beverage intakeEx-drinker (finding)[facility] Start: 98-24-0927Otvieqg Commentquit in 1987NOWI HealthcareStart: 09-10-2023 Alcohol Commentdrinks on rare occasions 6 or 7 months ago had about 3 [facility] HealthStart: 07-56-5292Bxp assigned at birthNot on [facility] HealthcareStart: 10-27-2024 End: 79-35-4955Nprxayf smoking status NHISUnknown if ever smokedCVP Physicians Start: 99-81-5282Lhqvavu intakeAlcohol Use DetailsCVP PhysiciansStart: 12-13-2024 End: 53-92-6324LbvDejy (finding)[facility]: 32-52-3197Ginogn-related behavior (observable entity)Caffeine Use DetailsCVP PhysiciansStart: 44-47-6974Uawqqlj use and exposureSmoking Tobacco Use Details CVP PhysiciansNEGATED: Highlighted rowAlcohol intakeAlcohol Use DetailsCVP PhysiciansNEGATED: Highlighted rowStart: 89-55-5204Ejzhukx of tobacco useEx- cigarette smokerCVP Physicians Clinical Notes 06-23-2023 to 09-06-2025 Note Date & RujkHjapVxsksmsi67-44-3224 Evaluation note* Type Assessment Date assessment Other retinal detachments impression Diagnosis: Other retinal detachm ents. Code: H33.8. Side: Right assessment Retinal detachment with single b reak, left eye impression Retinal detachment with single b reak, left eye: H33.012. Left assessment Pseudophakia impression Pseudophakia: Z96.1. Bilateral O assessment Type 2 diabetes mellitus without complications impression Type 2 diabetes mellitus without complications: E11.9 assessment Epiretinal membrane (ERM) of lef t eye impression Epiretinal membrane (ERM) of lef t eye: H35.372. Left [facility] Work Phone: 1(865) 661-148610-28-2025 History of Present illness Narrative* Encounter Date Complaint History Of Prese nt Illness retinal detachments The 75 year old male presents for evaluation of a history of (treated) retinal detachments in the right and left eyes. Patient states stable vision. Patient denies new floaters, flashes of light or ocular pain. RD (multiple - repaired) The 74 year [...] Old Retinal Detachment in the right eye. [facility] Physicians Work Phone: [phone]) 372-4086882208-98-2464 Instructions* Date Instruction Additional Infor mation Oct- Impression/Plan Related to Other retinal detachments Impression/Plan Related to Retin al detachment with single break, left eye Oct Impression/Plan Related to Pseud ophakia Impression/Plan Related to Type 2 diabetes mellitus without complications Impression/Plan Related to Epire tinal membrane (ERM) of left eye Oct- Impression/Plan Related to Retin al detachment with single break, left eye Oct- Impression/Plan Related to Other retinal detachments Oct- Impression/Plan 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, bilateral Oct- Impression/Plan Related to Pseud ophakia Aug- Impression/Plan Related to Type 2 diabetes mellitus without complications Impression/Plan Related to Essen tial (primary) hypertension Oct- Impression/Plan Related to Pseud ophakia Oct- Impression/Plan Related to Type 2 diabetes mellitus without complications Oct- Impression/Plan 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, bilateral Oct- Impression/Plan Related to Essen tial (primary) hypertension Oct- Impression/Plan Related to Other retinal detachments Oct- Impression/Plan Related to Retin al detachment with single break, left eye Oct- Impression/Plan Related to Essen tial (primary) hypertension Oct- Impression/Plan Related to Type 2 diabetes mellitus without complications Oct- Impression/Plan Related to Prese nce of intraocular lens Oct Impression/Plan 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, [...] bilateral Impression/Plan Related to Other retinal detachments Impression/Plan Related to Essen tial (primary) hypertension Return in 1 year karen Momin MD [...] with single break, left eye Return in 6 months w [facility] Hansel Momin MD for follow up exam [...] macula, bilateral Return in 6 months w [facility] Hansel Momin MD for follow up exam and OCT. Related to Retinal detachment with single break, left eye Impression/Plan Related to Hyper tension Impression/Plan Related to Type 2 diabetes mellitus without complications Impression/Plan Related to Other retinal detachments Impression/Plan 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, bilateral Impression/Plan Related to Prese nce of intraocular lens Impression/Plan Related to Retin al detachment with single break, left eye Return in 3 months w [facility] Dr. Momin for follow up exam and OCT. Related to Retinal detachment with single break, left eye Impression/Plan Related to Prese nce of intraocular lens Impression/Plan Related to Type 2 diabetes mellitus without complications Impression/Plan Related to Retin al edema Impression/Plan 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, right eye Impression/Plan Related to Other retinal detachments Impression/Plan Related to Retin al detachment with single break, left eye Return in 4-[address] Momin [...] break, left eye Return in 3 days karen Castillo for surgical repair, [facility] at 9:30. Related to Retinal detachment with single break, left eye Impression/Plan 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, right eye Impression/Plan Related to Retin al edema Impression/Plan Related to Other retinal detachments Impression/Plan Related to Prese nce of intraocular lens Impression/Plan Related to Type 2 diabetes mellitus without complications Impression/Plan Related to Retin al detachment with single break, left eye Return in 1 year karen Momin for follow up exam and OCT. Related to Puckering of macula, right eye Impression/Plan - No evidence of Diabetic Retinopathy was noted on examination today. The patient has been informed of the risks of Diabetic Retinopathy and the importance of maintaining blood sugar control. The patient was advised of the necessity of follow up compliance with the PCP/Tortilla Maker. Diabetic letter sent. Related to Type 2 [...] date. Appropriate follow up with primary eye housekeeper caregiver was recommended. Related to Puckering of macula, right eye Impression/Plan - We ll positioned IOL noted. I have stressed the importance of regular follow-ups with the patient's primary eye housekeeper caregiver. Related to Presence of intraocular lens Return in [address] [...] regular follow-ups with the patient's primary eye housekeeper caregiver. Related to Presence of intraocular lens - Stable Macular Puc ker was noted on examination today and was explained to the patient. No surgical intervention is indicated. Will continue to monitor. Related to Puckering of macula, right eye - Secondary to ERM, see plan #2 Related to Retinal edema - Well positioned in traocular lens implant were noted. I have stressed the importance of regular follow-ups with the patient's primary eye housekeeper caregiver. Related to Presence of intraocular lens - Retina is attached and stable with good silicone fill s/p Vitrectomy and scleral buckle. Will continue to observe condition and or symptoms. Advised patient to call with any changes prior to next scheduled appointment. Related to Other retinal detachments - Return in 1 year w marine Momin for follow up exam with OCT. Related to Other retinal detachments - Retina attached an d stable with good silicone fill s/p Vitrectomy and scleral buckle. Will continue to observe condition and or symptoms. No treatment is required at this time. Advised patient to call with any changes prior to next scheduled appointment. Related to Old retinal detachment, partial - Return in 1 year w [facility] Dr. oMmin for follow up exam with OCT. Related [...] up. Appropriate follow up with primary eye housekeeper caregiver was recommended. Related to PVD (Vitreous degeneration) [...] date. Appropriate follow up with primary eye housekeeper caregiver was recommended. Related to Macular puckering of retina - Stable with retina attached and good silicone fill s/p Vitrectomy and scleral buckle. Will continue to observe condition and or symptoms. No treatment is required at this time. Advised patient to call with any changes prior to next scheduled appointment. Related to Old retinal detachment, partial - Return in 1 year w [facility] Dr. Momin for follow up and OCT. [...] up. Appropriate follow up with primary eye housekeeper caregiver was recommended. Related to PVD (Vitreous degeneration) [...] date. Appropriate follow up with primary eye housekeeper caregiver was recommended. Related to Macular puckering of retina PVD (Vitreous degene ration) OU Condition: mild, [...] up. Appropriate follow up with primary eye housekeeper caregiver was recommended. Related to PVD (Vitreous degeneration) [...] retinal detachment, partial [facility] Work Phone: 1(208) 853-228403-07-2025 Evaluation note* Diagnosis Onset Date Resolution Status Admit Date Bilateral primary osteoarthritis of knee acuteMarch 2024 10:22amWeakness of both quadriceps musclesacuteMarch 2024 10:22amEssential (primary) hypertensionacuteMay 2024 9:24am HyperlipidemiaacuteMay 2024 9:24amOSA (obstructive sleep apnea)acuteMay 2024 9:24amType 2 diabetes mellitus with hyperglycemia, without long-term current useacuteMay 2024 9:24am [facility] Work Phone: 1(912) 113-310202-03-2025 Evaluation note* Diagnosis Onset Date Resolution Status Admit Date Bilateral knee pain acuteFebruary 2024 9:14amMedicare annual wellness visit, subsequentacute December 13, 2024 9:14amOSA (obstructive sleep apnea)acuteFebruary 2024 9:14amType 2 diabetes mellitus with hyperglycemia, without long-term current use acuteFebruary 2024 9:14am [facility] Work Phone: 1(873) 624-711702-03-2025 Evaluation note* Diagnosis Onset Date Resolution Status Admit Date Bilateral knee pain acuteFebruary 2024 9:14amMedicare annual wellness visit, subsequentacute December 13, 2024 9:14amOSA (obstructive sleep apnea)acuteFebruary 2024 9:14amType 2 diabetes mellitus with hyperglycemia, without long-term current use acuteFebruary 2024 9:14amBilateral primary osteoarthritis [facility]acute[facility] 2024 10:22amWeakness of both quadriceps musclesacuteProtestant Hospital 2024 10:22am [facility] Work Phone: 1([phone]) 699-335612-19-2024 History of Present illness Narrative* Natalee Mariee [...] 1 year skin check documented in this encounterSt. Louis Behavioral Medicine InstituteLothcuslhb52-33-5111 Evaluation note* Diagnosis Onset Date Resolution Status Admit Date Essential (primary) hypertension acuteNovember 2023 9:20amHyperlipidemiaacuteNovember 2023 9:20amOSA (obstructive sleep apnea)acuteNovember 2023 9:20amType 2 diabetes mellitus with hyperglycemia, without long-term current useacuteNovember 2023 9:20am Bilateral knee painacuteFebruary 2024 9:14am [facility] Work Phone: 1(950) 190-615410-11-2024 History of Present illness Narrative* Encounter Date [...] Old Retinal Detachment in the right eye. [facility] Physicians Work Phone: 1([phone]) 380-8636142724-39-8509 Instructions* Date Instruction Additional Infor mation Oct- Impression/Plan Related to Retin al detachment with single break, left eye Oct- Impression/Plan Related to Other retinal detachments Oct Impression/Plan 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, bilateral Oct Impression/Plan Related to Pseud ophakia Impression/Plan Related [...] Impression/Plan Related to Essen tial (primary) hypertension Oct Impression/Plan Related to Type 2 diabetes mellitus [...] left eye Return in 3 months w [facility] Dr. Momin for follow up exam and [...] left eye Return in [address] Castillo for surgical repair, [facility] at 9:30. Related to Retinal detachment [...] date. Appropriate follow up with primary eye housekeeper caregiver was recommended. Related to Puckering of macula, right eye Follow up - Return i n [address] Momin for follow up exam and OCT. Related to Puckering of macula, right eye Impression/Plan - We ll positioned IOL noted. I have stressed the importance of regular follow-ups with the patient's primary eye housekeeper caregiver. Related to Presence of intraocular lens Impression/Plan - No evidence of Diabetic Retinopathy was noted on examination today. The patient has been informed of the risks of Diabetic Retinopathy and the importance of maintaining blood sugar control. The patient was advised of the necessity of follow up compliance with the PCP/Tortilla Maker. Diabetic letter sent. Related to Type 2 [...] regular follow-ups with the patient's primary eye housekeeper caregiver. Related to Presence of intraocular lens - [...] regular follow-ups with the patient's primary eye housekeeper caregiver. Related to Presence of intraocular lens - [...] up. Appropriate follow up with primary eye housekeeper caregiver was recommended. Related to PVD (Vitreous degeneration) [...] date. Appropriate follow up with primary eye housekeeper caregiver was recommended. Related to Macular puckering of [...] up. Appropriate follow up with primary eye housekeeper caregiver was recommended. Related to PVD (Vitreous degeneration) [...] date. Appropriate follow up with primary eye housekeeper caregiver was recommended. Related to Macular puckering of [...] up. Appropriate follow up with primary eye housekeeper caregiver was recommended. Related to PVD (Vitreous degeneration) [...] retinal detachment, partial [facility] Work Phone: [phone] 445-195312-26-2023 Evaluation note* Encounter Date Diagnosis Assessment Notes Treatment Notes Treatment Clinical Notes Oct, Type 2 diabetes augusto itus with hyperglycemia, without long-term current use of insulin (ICD-10 - E11.65) [facility] Other 12-26-2023 Evaluation note* Encounter Date Diagnosis Assessment Notes Treatment Notes Treatment Clinical Notes Oct, Essential (primary) hypertension (ICD-10 - I10) [facility] Other 11-15-2023 Evaluation note* Encounter Date Diagnosis [...] reviewed and amended by provider signed below. Sep,Type 2 diabetes mellitus with hyperglycemia, without long-term current use of insulin (ICD-10 - E11.65)Pt. advised to follow ADA diet as discussed and monitor BS regularly as advised and bring sugar logto the next appt. Monitor for hypoglycemia and call if any problems. The importance of yearly eye exams stressed Sep,Essential (primary) hypertension (ICD-10 - I10)Blood pressure remains well controlled at this time. Denies cardiac symptoms. Shows no signs or symptoms or poor control. Patient to continue with above medication and we will continue to monitor. Advised to pay attention to body and symptoms. Any developing patterns. Stay well hydrated. [facility] Other 09-28-2023 Evaluation note* Encounter Date Diagnosis Assessment Notes Treatment Notes Treatment Clinical Notes Jul, Type 2 diabetes augusto itus with hyperglycemia, without long-term current use of insulin (ICD-10 - E11.65) Reviewed home readings. Chronic problem, improved w increase in metformin. continue to monitor w Micahel meter. Jul,Essential (primary) hypertension (ICD-10 - I10)Blood pressure remains well controlled at this time. Denies cardiac symptoms. Shows no signs or symptoms or poor control. Patient to continue with above medication and we will continue to monitor. Advised to pay attention to body and symptoms. Any developing patterns. Stay well hydrated. Jul,Mixed hyperlipidemia (ICD-10 - E78.2)Patient to continue to watch diet and increase exercise routine. Remain active as tolerated and we will continue to monitor with routine blood work. Patient is to continue with above medication as directed. Jul,Encounter for immunization (ICD-10 - Z23) Jul,OSA (obstructive sleep apnea) (ICD-10 - G47.33)Reviewed initial sleep study w pt. Will followup w the sleep lab as he had a lot of episodes on therecent test. [facility] Other 08-15-2023 Evaluation note* Encounter Date Diagnosis Assessment Notes Treatment Notes Treatment Clinical Notes Jun, Mixed hyperlipidemia (ICD-10 - E 78.2) recheck labs later this year. 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 Family has encouraged him to eval this. Jun,Sleep apnea, unspecified type (ICD-10 - G47.30)Handwrote referral to [facility] for testing. Jun,Type 2 diabetes mellitus with hyperglycemia, without long-term current use of insulin (ICD-10 - E11.65)Labs much improved - continue healthy diet and meds with freestyle meter. [facility] Other 08-15-2023 Evaluation note* Encounter Date Diagnosis Assessment Notes Treatment Notes Treatment Clinical Notes Jun, Mixed hyperlipidemia (ICD-10 - E 78.2) recheck labs later this year. 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 Family has encouraged him to eval this. Jun,Sleep apnea, unspecified type (ICD-10 - G47.30)Handwrote referral to [place] [facility] for testing. Family states he snores and he is often fatigu ed. Jun,Type 2 diabetes mellitus with hyperglycemia, without long-term current use of insulin (ICD-10 - E11.65)Labs much improved - continue healthy diet and meds with freestyle meter. [facility] Other 08-14-2023 Evaluation note* Encounter Date Diagnosis Assessment Notes Treatment Notes Treatment Clinical Notes Jun, Type 2 diabetes augusto itus with hyperglycemia, without long-term current use of insulin (ICD-10 - E11.65) [facility] Other Consult note* Clinical Note Date No Information [facility] Work Phone: Discharge summary* Clinical Note Date No Information [facility] Work Phone: Evaluation noteNo InformationNort EVRST Other Evaluation note* Diagnosis Onset Date Resolution Status Maxillary sinusitis acuteScreening PSA (prostate specific antigen)[id number] Work Phone: Evaluation note* Diagnosis Onset Date Resolution Status Essential (primary) hypertension kzdstRncdhlxmmjorwwn[id number] [facility] Work Phone: Evaluation note* Diagnosis Seborrheic keratosis- Primary Lentigines Melanocytic nevus of trunk Benign neoplasm of skin of trunk, except scrotum Dermatofibroma Benign neoplasm of skin, site unspecified History of malignant melanoma of skin Personal history of malignant melanoma of skin documented in this encounter [facility]* Type Assessment Date No Information [facility] Work Phone: Evaluation note* Diagnosis Onset Date Resolution Status Admit Date Colon cancer screening acuteSept2024 9:21amEssential (primary) hypertensionacuteSept2024 9:21amHerpes zoster vaccination declinedacutept2024 9:21amHyperlipidemiaacuteSept2024 9:21amInfluenza vaccination declinedacutept2024 9:21amOSA (obstructive sleep apnea)acute July 25, 2025 9:21amType 2 diabetes mellitus with hyperglycemia, without long-term current useacutept2024 9:21am [facility] Work Phone: History and physical note* Clinical Note Date No Information [facility] Work Phone: History general Narrative - Reported* Type Description Date Medical History hyperlipidemia Medical HistoryhypertensionMedical Historytype II diabetesMedical Historyhay feverSurgical HistoryRetinal SurgerySurgical HistorymelanomaSurgical History cataractHospitalization HistorySee Above [facility] Other Hospital Discharge instructionsAmbulatory Orders* Referral to Orthopedics Time Frame: 12/13/24, Location: None Selected [facility] Work Phone: Progress note* Clinical Note Date No Information [facility] Work Phone: Resyaq for referral (narrative)* Reason For Referral No Information [facility] Work Phone: Rencfo for referral (narrative)No reason for referral information availableSub[facility] Work Phone: Summary Purpose Family History Relationship Condition Age at Onset Recorded Date/T radha brother Diabetes mellitus Unknown fatherDeceasedUnknownDiabetes mellitusUnknownNot SpecifiedDiabetes mellitus UnknownDeceasedUnknown Relationship Condition Age at Onset Recorded Date/T radha brother Diabetes mellitus Unknown fatherDeceasedUnknownDiabetes mellitusUnknownmotherDiabetes mellitusUnknown DeceasedUnknown Family Member Type Diagnosis Age At Onset Father Problem (finding) Heart Disease MultipleProblem (finding)Diabetes mellitusFatherProblem (finding)raised blood lipidsFatherProblem (finding)HBPFatherProblem (finding)cataract Advance Directives Advance Directive Response Recorded Date/ Time Advance Directives No December 01, 2023 6:23pm Directive Yes / No Effective Date File Name No Information Advance Directive Response Recorded Date/ Time Advance Directives No December 01, 2023 5:23pm Reason for Referral Reason * 07/04 [facility] T office. 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 retinal detachments (chief complaint). 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 Patient states stable vision. Patient denies new floaters, flashes of light or ocular pain. Chief Complaint Amb Documentation Head Cold-Stuffy nose 4 Month Check UpReason for VisitMaxillary sinusitis Screening PSA (prostate specific antigen) [id number] Chief Complaint Amb Documentation 4 MONTH FOLLOW UPReason for VisitEssential (primary) hypertension Hyperlipidemia Hypertension [id number] Chief Complaint Admit Date 4 month f/u [...] January 14, 2025 10:17am CONSULT DR. SANDRA CASTELLANO KNEE PAIN , WX January 14, 2025 [...] 2025 10:22am Weakness of both quadriceps muscles [facility] 2024 10:22am Chief Complaint Admit Date M25.561 - Pain in right knee January 14, 2025 10:17am CONSULT DR. SANDRA CASTELLANO KNEE PAIN , WX January 14, 2025 10:22am 3 month f/u March 21, 2025 9:24a m Reason for Visit Admit Date Bilateral primary osteoarthritis of knee January 14, 2025 10:22am Weakness of both quadriceps muscles [facility] 2024 10:22am Essential (primary) hypertension March 9:24am Hyperlipidemia March 21, 2025 9:24a m KAYLYNN (obstructive sleep apnea) March 21, 2025 9:24am Type 2 diabetes mellitus wit h hyperglycemia, without long-term current use March 21, 2025 9:24am Chief Complaint Admit Date 4 month f/u July 25, 2025 9:21am Reason for Visit Admit Date Colon cancer screening July 25, 2 025 9:21am [facility]primary[facility] 9:21am Herpes zoster vaccination declined [facility] 2024 9:21am Hyperlipidemia July 25, 2025 9:21am Influenza vaccination declined July 25, 2025 9:21am KAYLYNN (obstructive sleep apnea) July 25, 2025 9:21am Type 2 diabetes mellitus wit h hyperglycemia, without long-term current use July 25, 2025 9:21am Additional Source Comments (unrecognized sect ion and content) No Status Records FoundNo Status Records FoundNo Status Records FoundNo Status Records FoundNo Status Records Found INFORMATION SOURCE (unrecogn ized section and content) DATE CREATED AUTHOR 12/28/2018 [facility] DATE CREATED AUTHOR AUTHOR'S ORGANIZ ATION 03/06/2023 [facility] DATE CREATED AUTHOR AUTHOR'S ORGANIZ ATION 11/01/2024 [facility] EPIC DATE CREATED AUTHOR AUTHOR'S ORGANIZ ATION 01/18/2025 [facility] DATE CREATED AUTHOR AUTHOR'S ORGANIZ ATION 09/07/2025 [facility] REASON FOR VISIT (unrecogniz ed section and content) ReasonCommentsSkin Check Care Teams (unrecognized sec tion and [...] Care Provider Active Start: January 06, 2024 Heather Perez ProviderActiveStart: January 06, 2024 Team Status: Inactive Member Role Status Dates Sandra Archer MD Primary Care Provider Active Start: January 16, 2024 End: January 16, 2024Renuka Irizarry APRN [employer] ProviderActive Start: January 16, 2024 End: January 16, 2024 Team Status: Inactive Member Role Status Dates Sandra Archer MD Primary Care Provide r, Attending Provider Active Start: January 26, 2024 End: January 26, 2024 Team Status: Active Member Role Status Dates Sandra Archer MD Primary Care Provider Active Start: March 05, 2024 Heather Perez ProviderActiveStart: March 05, 2024 Team Status: Inactive Member Role Status Dates Sandra Archer MD Primary Care Provide r, Attending Provider Active Start: May 27, 2024 End: May 27, 2024Team MemberRelationshipSpecialtyStart DateEnd Date Sandra Archer MD [address] [place] [address] [facility]06/27/23Team MemberRelationshipSpecialtyStart DateEnd Date Sandra Archer MD [address] [place] [address] [facility] - [facility] Name Effective Dates (start - stop) Status Members No Information Team Status: Active Member Role Status Dates Sandra Archer MD Primary Care Provider Active Start: January 14, 2025 Bishnu Ulloa II ProviderActiveStart: January 14, 2025 Team Status: Inactive Member Role Status Dates Sandra Archer MD Primary Care Provider Active Start: January 14, 2025 End: January 14, 2025Bishnu Ulloa II ProviderActiveStart: January 14, 2025 End: January 14, 2025 Team Status: Inactive Member Role Status Dates Sandra Archer MD Primary Care Provide r, Attending Provider Active Start: March 21, 2025 End: March 21, 2025 Team Status: Inactive Member Role Status Dates Sandra Archer MD Primary Care Provider Active Start: July 25, 2025 End: July 25, 2025Bishnu Dorado ProviderActiveStart: July 25, 2025 End: July 25, 2025 Goals (unrecognized section and content) Goals [...] BE BASED ON THE PRIMARY CLINICAL RECORDS. [employer] provides no warranty or guarantee of the accuracy or completeness of information in this document.
[2025-10-04 12:52] LABS: Hematocrit 37.3 % (42.0-54.0); Hemoglobin 12.7 g/dL (14.0-18.0); Immature Granulocytes Abs Auto 0.02 10^3/uL (0.00-0.03); Immature Granulocytes Pct Auto 0.3 % (0.0-0.5); Lymphocytes Absolute Auto 1.4 10^3/uL (1.2-3.8); Mean Corpuscular HGB Conc 34.0 g/dL (29.9-35.2); Mean Corpuscular Hemoglobin 31.1 pg (25.9-34.0); Mean Corpuscular Volume 91.2 fL (80.0-94.0); Platelet Count 204 10^3/uL (150-450); Red Blood Count 4.09 10^6/uL (4.70-6.10); White Blood Count 7.6 10^3/uL (4.0-11.0)
[2025-10-04 13:04] LABS: Alanine Aminotransferase 38 U/L (16-63); Albumin Globulin Ratio 1.2; Albumin Level 3.8 g/dL (3.4-5.0); Alkaline Phosphatase 72 U/L (46-116); Anion Gap 13.3; Aspartate Amino Transferase 20 U/L (15-37); Blood Urea Nitrogen 24.0 mg/dL (7.0-18.0); Calcium 8.8 mg/dL (8.5-10.1); Carbon Dioxide 27.1 mmol/L (21.0-32.0); Chloride 101 mmol/L (98-107); Estimated GFR (African America >60 (>=60 mL/min/1.73m^2); Estimated GFR (Non-African Ame >60 (>=60 mL/min/1.73m^2); Globulin 3.2 g/dL; Glucose 201 mg/dL (74-106); Potassium 4.4 mmol/L (3.5-5.1); Sodium 137 mmol/L (136-145); Total Protein 7.0 g/dL (6.4-8.2)
[2025-10-04 13:31] LABS: Iron 83.0 ug/dL (65.0-175.0); Percent Iron Saturation 25.6 %; Total Iron Binding Capacity 324.0 ug/dL (250.0-450.0)
[2025-10-04 13:45] LABS: Ferritin 80.0 ng/mL (26.0-388.0)
== END 2025-10-04 12:23 | disposition home or self-care (01) ==
LOC: LAB 12:23
PROVIDERS: PCP Family Medicine; Visit Provider Internal Medicine Hematology & Oncology
DX: D64.9 Anemia, unspecified (principal)
CPT/HCPCS: 36415; 80053; 82728; 83540; 83550; 83615; 85025; 85652; 86140

== ENCOUNTER 2025-10-18 09:58 | Outpatient (RCR) | payer MEDICARE, OTHER, SELFPAY | END 2025-11-09 23:59 | disposition home or self-care (01) | LOC: HEMC 09:58 | PROVIDERS: PCP Family Medicine; Visit Provider Internal Medicine Hematology & Oncology | DX: D64.9 Anemia, unspecified (principal); E11.9 Type 2 diabetes mellitus without complications; G47.30 Sleep apnea, unspecified; Z85.820 Personal history of malignant melanoma of skin; Z79.84 Long term (current) use of oral hypoglycemic drugs; Z87.891 Personal history of nicotine dependence | CPT/HCPCS: G0463 ==

== ENCOUNTER 2025-10-26 10:04 | Outpatient (OUT) | payer MEDICARE, OTHER, SELFPAY ==
--- OUTSIDE RECORDS SUMMARY | 2025-01-03 02:50 | XMS_ITS ---
Author Organization [facility] Address [address] [place] [address] Care Team Providers Care Optical Laboratory Technician Name Role Phone Urban Todd Unavailable [phone] Jayjay Cruz Bruce [phone] REASON FOR VISIT REFERRAL FROM DAISHA Saldivar/Tracy KNEE OA - FILEMON XR Encounters Encounter Location Date Provider Diagnosis [facility] [facility] [address] [address] 01/03/2025 Jayjay Cruz Plan Of Treatment No Information Progress Notes * ROXANE GRACE LDOB:[birth year] (75 yo M)Acc No.[id number]:01/03/2025 Patient:?ROXANE GRACE :?Jayjay Cruz MDDOB:1950???Age:74 Y ???Sex:MaleDate:01/03/2025Phone:[phone]:[address] [place], [place] [id number] Subjective: * Chief Complaints: * 1 . REFERRAL FROM DAISHA Lott KNEE OA - FILEMON XR. * Medical History: Objective: * Vitals: Assessment: Plan: * Treatment: Forms: * Images: * Electronic signature of Jayjay Cruz MD on 10/26/2025 at 10:09 AM ESTSign off status: Pending * Provider: Huber Cruz MD Date: 0 01/03/2025 Generated for Printing/Faxing/eTransmitting on:?10/26/2025 10:09 AM EST
--- OUTSIDE RECORDS SUMMARY | 2025-04-19 09:00 | XMS_ITS ---
Author Organization [facility] in [place] Address [address] [place] [address] Care Team Providers Care Corporate Webmaster Name Role Phone Suzi RUIZ, Sandra Primary Care Provider Unavailab Nya Newman Unavailable [phone] REASON FOR VISIT New PT Hem Encounters Encounter Location Date Provider Diagnosis [facility] [address] [place] [address] 04/19/2025 Nya Ewing Plan Of Treatment No Information Progress Notes * Hansel CARABALLO LDOB:[birth year] (75 yo M)Acc No.[id number]:04/19/2025 UNLOCKED PROGRESS NOTE Progress Notes Patient: Hansel CANADA :?Nya Mckeon M.D.:1950???Age:75 Y ???Sex:MaleDate:04/19/2025Phone:[phone]:[address] [place], [place] [address]Pcp:Sandra Archer MD Subjective: * Chief Complaints: * 1 . MD New PT Hem. * Medical History: Objective: * Vitals: Assessment: Plan: * Treatment: * * Electronic signature of Nya Ewing MD, [id number] on 10/26/2025 at 10:08 AM ESTSign off status: PendingVisit Status:?CONFSMS (Voice) * Provider: Awilda Mckeon M.D. Date: 0 04/19/2025 Generated for Printing/Faxing/eTransmitting on:?10/26/2025 10:08 AM EST
--- OUTSIDE RECORDS SUMMARY | 2025-05-10 05:15 | XMS_ITS ---
Author Organization [facility] in [place] Address [address] [place] [address] Care Team Providers Care End Frazer Name Role Phone Suzi RUIZ, Sandra Primary Care Provider Unavailab Nya Newman Unavailable [phone] REASON FOR VISIT MD Encounters Encounter Location Date Provider Diagnosis [facility] [address] [place] [address] 05/10/2025 Nya Ewing Plan Of Treatment No Information Progress Notes * Hansel CARABALLO LDOB:[birth year] (75 yo M)Acc No.[id number]:05/10/2025 UNLOCKED PROGRESS NOTE Progress Notes Patient: Hansel CANADA :Leticia Mckeon M.D.:1950???Age:75 Y ???Sex:MaleDate:05/10/2025Phone:[phone]:[address] [place], [place] [address]Pcp:Sandra Archer MD Subjective: * Chief Complaints: * 1 . MD. * Medical History: Objective: * Vitals: Assessment: Plan: * Treatment: * * Electronic signature of Nya Ewing MD, [id number] on 10/26/2025 at 10:08 AM ESTSign off status: PendingVisit Status:?CONFSMS (Voice) * Provider: Awilda Mckeon M.D. Date: 0 05/10/2025 Generated for Printing/Faxing/eTransmitting on:?10/26/2025 10:08 AM EST
--- OUTSIDE RECORDS SUMMARY | 2025-10-18 05:15 | XMS_ITS ---
Author Organization [facility] [place] Address [address] [place] [address] Care Team Providers Care Assistant Engineer Name Role Phone Suzi RUIZ, Sandra Primary Care Provider Unavailab MELQUIADES Ball Unavailable [phone] REASON FOR VISIT MD Encounters Encounter Location Date Provider Diagnosis [facility] [address] [place] [address] 10/18/2025 MELQUIADES MTZ Plan Of Treatment No Information Progress Notes * Hansel CARABALLO LDOB:[birth year] (75 yo M)Acc No.[id number]:10/18/2025 UNLOCKED PROGRESS NOTE Progress Notes Patient: Hansel CANADA :DEREJE MTZ M.D.:1950???Age:75 Y ???Sex:MaleDate:10/18/2025Phone:[phone]:[address] [place] [id number]:Sandra Archer MD Subjective: * Chief Complaints: * 1 . MD. * Medical History: Objective: * Vitals: Assessment: Plan: * Treatment: * * Electronic signature of MELQUIADES MTZ MD on 10/26/2025 at 10:07 AM ESTSign off status: PendingVisit Status:?CANC (Cancelled) * Provider: Awilda MTZ M.D. Date: 1 12/19/2024 Generated for Printing/Faxing/eTransmitting on:?10/26/2025 10:07 AM EST
--- OUTSIDE RECORDS SUMMARY | 2025-10-24 05:11 | XMS_ITS | Continuity of Care Document ---
Author Organization [facility] Address [address] [place] [address] Phone Care Team Providers Care Public Health Epidemiologist Name Role Phone Sandra Archer MD Primary Care Provider Nya Mckeon MD Attending Provider Sandra Archer MD Attending Provider Care Teams Patient Care Team Team Status: Active Member Role/Relationship Status Dates Sandra Archer MD Primary Care Provider Active Patient Care Team Team Status: Active Member Role/Relationship Status Dates Sandra Archer MD Primary Care Provider Active Start: October 04, 2025 Bishnu Cooney ProviderActiveStart: October 04, 2025 Patient Care Team Team Status: Inactive Member Role/Relationship Status Dates Sandra Archer MD Primary Care Provider Active Start: October 24, 2025 End: October 24, 2025Bishnu Dorado ProviderActiveStart: October 24, 2025 End: October 24, 2025 Chief Complaint and Reason for Visit Chief Complaint Admit Date 3 month f/u October 24, 2025 9:15am Reason for Visit Admit Date Bilateral primary osteoarthritis of knee October 24, 2025 9:15am Allergies, Adverse Reactions, Alerts Allergen Type Severity Reaction Last Updated Verified Status No Known Allergies Allergy Unknown October 24, 2025 9:21amYesActive Social History Smoking Status Status Start Date End Date Date of Observa tion Never smoked tobacco (finding) January 16, 2024 8:52am Observation Status Observation Response Date of Response Legal Sex Male (finding) Sex Assigned At BirthMaleMay 1949 Family History Relationship Condition Age at Onset Recorded Date/T radha brother Diabetes mellitus Unknown fatherDeceasedUnknownDiabetes mellitusUnknownmotherDiabetes mellitusUnknown DeceasedUnknown Problems Active Problems Problem Diagnosis/Recorded Date Onset Date Stat us Herpes zoster vaccination declined July 25 8:40am Unknown Active Medicare annual wellness vis it, subsequent December 13, 2024 10:33am Unknown Active Weakness of both quadriceps muscles January 14, 2025 11 :13am Unknown Active KAYLYNN (obstructive sleep apnea) January 15, 2024 3:40pm U nknown Active KAYLYNN (obstructive sleep apnea) January 15, 2024 3:40pm U nknown Active Screening PSA (prostate spec ific antigen) January 26, 2024 8:48am Unknown Active Colon cancer screening July 25, 2025 8:53am Unk nown Active Mixed conductive and sensori neural hearing loss of both ears January 15, 2024 3:40pm Unknown Active Bilateral primary osteoarthr itis of knee January 14, 2025 11:14am Unknown Active Influenza vaccination declined July 25, 2025 8: 39am Unknown Active Anemia March 23, 2025 10:34am Unknown Activ e Hyperlipidemia January 15, 2024 3:40pm Unknown Act nael Maxillary sinusitis January 16, 2024 9:14am Unknown Active Essential (primary) hypertension January 15, 2024 3:40p m Unknown Active Type 2 diabetes mellitus wit h hyperglycemia, without long-term current use of insulin January 15, 2024 3:40pm Unknown Active Bilateral knee pain December 13, 2024 9:54am Unknown Active Hypertension January 15, 2024 3:40pm Unknown Activ e Medications Medication Status Dose Units Route Directions Qty Days Refills S tart Date Stop Date End Date Reason(s) Instructions Adherence Flash Glucose Sensor (Freestyle Michael 2 Sensor) kit Di scontinued 0 .ROUTE.SJEICOM65Ixxdy 2023 8:46pmAugust 2023 10:42amUSE DIRECTED Glipizide 5 mg tabletDiscontinued0.ROUTE.XFFHYSD834Cfwhk 2023 8:46pmApril 2023 1:14pmTAKE 1 TABLET BY MOUTH 30 MINUTES BEFORE BREAKFAST ONCE DAILY Glipizide 5 mg tabletDiscontinued0.ROUTE.TWEFPRO444Xfvnb 2023 1:14pm August 28, 2024 7:24amTAKE 1 TABLET BY MOUTH 30 MINUTES BEFORE BREAKFAST ONCE DAILYFlash Glucose Sensor (Freestyle Michael 2 Sensor) kitDiscontinued0.ROUTE .LYVAFHW28Buslwb 2023 10:42amJanuary 2024 1:22pmUSE DIRECTED Metformin 500 mg tabletDiscontinued0.ROUTE.VSNBPTQ6261Ooufua 2023 10:42am August 10, 2024 9:58amTAKE 2 TABLETS BY MOUTH TWICE A DAYMetformin 500 mg tabletDiscontinued0.ROUTE.OSGELSS1950Dtojojd 2023 9:58amNovember 2023 4:58pmTAKE 2 TABLETS BY MOUTH TWICE A DAYGlipizide 5 mg tabletDiscontinued0 .ROUTE.QWIBVXR543Umnyiyr 2023 7:24amJanuary 2024 12:18pmTAKE 1 TABLET BY MOUTH 30 MINUTES BEFORE BREAKFAST ONCE DAILYMetformin 500 mg tablet Discontinued0.ROUTE.VKAFKMH9998Vwpjcaya 2023 4:58pmJanuary 2024 11:56amTAKE 2 TABLETS BY MOUTH TWICE A DAYFlash Glucose Sensor (Freestyle Michael 2 Sensor) kitDiscontinued0.ROUTE.HHQPRWY23Byviycf 2024 1:22pmJuly 2024 3:29pmUSE DIRECTEDGlipizide 5 mg tabletDiscontinued0.ROUTE.WAEFAZV747Lyjdquj 2024 12:18pmNovember 2024 10:30amTAKE 1 TABLET BY MOUTH 30 MINUTES BEFORE BREAKFAST ONCE DAILYMetformin 500 mg tabletDiscontinued0.ROUTE.ZKCTBES160 5January 2024 11:56amJuly 2024 8:45amTAKE 2 TABLETS BY MOUTH TWICE A DAYFluticasone Propionate 50 mcg/actuation spray,tcebmbsqnwBqzcnufvvvim0SWHNW AMEWCFLGJRKbkvn922Pnxad 2024 9:09amMay 2024 11:32amMeloxicam 15 mg tabletDiscontinued0.ROUTE.ELZDEKO749Fjn 2024 7:44amAugust 2024 6:58am TAKE 1 TABLET BY MOUTH EVERY DAYFluticasone Propionate 50 mcg/actuation spray,lplqumxiymJmibtxqhskps9PTFYUYDDODROTFHSucst219Tks 2024 11:32amAugust 2024 1:04pmMetformin 500 mg tabletDiscontinued0.ROUTE.HEODFWO0216Khla 2024 8:45amNovember 2024 10:30amTAKE 2 TABLETS BY MOUTH TWICE A DAYFlash Glucose Sensor (Freestyle Michael 2 Sensor) kitDiscontinued0.ROUTE.HOITMXW86Ibyl2024 3:29pmJuly 2024 2:27pmUSE DIRECTEDFlash Glucose Sensor (Freestyle Michael 2 Sensor) kitActive0.ROUTE.ELFQZLZ60NfjgMay 19, 2025 2:27pmType 2 diabetes mellitus with hyperglycemiato test blood sugar dailyFluticasone Propionate 50 mcg/actuation spray,gpmvybqtbrXsdbbjnyknty3ZDLPGWAWQZCNWWXDndwl212 June 13, 2025 1:04pmSeptember 2024 7:25amMeloxicam 15 mg tablet Discontinued0.ROUTE.AUMUKVM958Odfkoa 2024 6:58amOctober 2024 7:14am TAKE 1 TABLET BY MOUTH EVERY DAYFluticasone Propionate 50 mcg/actuation spray,mhyhfwerzyAkpiqebihlqm8LKQGHKFSXSWLKERAigie496Vobwwwpdr 29th, 2025 7:25am October 01, 2025 7:08pmPravastatin 40 mg plavgaUxjxtg96JCLFLxatc081Vfisvim 2024 3:21pmComplies with drug therapyAtenolol 100 mg xpvppuEwclpo128AMWM Bnbpj399Oeqjdbx 2024 3:21pmComplies with drug therapyMeloxicam 15 mg tabletActive0.ROUTE.NAUIYRL903Bhqoyzc 2024 7:13amTAKE 1 TABLET BY MOUTH EVERY DAYComplies with drug therapyMetformin 500 mg tabletActive0.ROUTE.COMPLEX 1205September 27, 2025 10:30amTAKE 2 TABLETS BY MOUTH TWICE A DAYComplies with drug therapyGlipizide 5 mg tabletActive0.ROUTE.JKWERMX640BnbecpbhSeptember 27, 2025 10:30amTAKE 1 TABLET BY MOUTH 30 MINUTES BEFORE BREAKFAST ONCE DAILYComplies with drug therapyFluticasone Propionate 50 mcg/actuation spray,suspensionActive0 .ROUTE.QYAUNWL274Crpjjzhk 2024 7:07pmUSE 1 SPRAY IN EACH NOSTRIL ONCE A DAYComplies with drug therapyAspirin 81 mg ajplqxcVgmauv18HHPYWwkwlYhqfa 2023 12:00amComplies with drug therapyFluticasone Propionate 50 mcg/actuation spray,eczalbjimzEruajbigrehk3LATPBASQYWIEATHQwlotBzqjl 2023 12:00amNovember 2023 10:05amGlipizide 5 mg vhabntVinkvgzijlfi9IYCOSdeeeBcnpc 2023 12:00amMarch 2023 8:35amMetformin 500 mg znawbmJfqpguicvlbg5715ECEFImedr dailyC[facility] 2023 12:00amJuly 2023 9:34amMultivitamin (Daily Multi- Vitamin) ksjrmwLwwakz8FYGYXPqcwpWjvjo 2023 12:00amComplies with drug therapyNiacin 500 mg ylkakaGxryiu393ZVMPYyehz dailyC[facility] Clinic [facility] 2023 12:00am Complies with drug therapySertraline 25 mg gzcqnlEanfje21JQXMYpvhgVumte 2023 12:00amComplies with drug therapyAmoxicillin-Pot Clavulanate 875-125 mg grllenHuhmrvfmbzoe5QKNRTZcbqq sojnt8689Vfwjf 2023 12:00amMarch 2023 8:32amMaxillary sinusitis Chronic maxillary sinusitisGlipizide 5 mg xmqfdoZhjdcoixxvhj0LWXMDzmio daily January 26, 2024 8:33amApril 2023 8:46pmFlash Glucose Sensor (Freestyle Michael 2 Sensor) kitDiscontinued0.RouteApril 2023 11:00pmApril 2023 8:46pmAs directedMeloxicam 15 mg hfwwgaZrgknqyroaxv40GBMThradk50624Bbtmg 2024 12:00amMay 2024 7:44amDiclofenac Sodium 1 % spiShirwo7KXTYXLLSR.4-5 times a day as needed for knee tkne5338Pqnye 2024 12:00amComplies with drug therapyAtenolol 100 mg xuslybLrobduudyuag422TCKUWhrgjSfwkpmbc 2023 12:00am January 06, 2024 12:56pmPravastatin 40 mg kvmzwdOumrpsyzjxob78DBOMKasko January 06, 2024 12:00amFebruary 2023 12:56pmAtenolol 100 mg tablet Yluvoeywgywt047UUWMYnuft611Lrsfcfmz 2023 12:56pmNovember 2023 10:05am Pravastatin 40 mg aesyqcDmzealawloms74POTGLkumh279Ujbkpbnp 2023 12:56pm September 16, 2024 10:05amMetformin 500 mg ljgffwHazdnezfecoi7547JXSTLxoxn daily 1800July 2023 9:33amAugust 2023 10:42amPravastatin 40 mg tablet Spvoasauoohh23BBHKSdtrf668Fjsaykme 2023 10:04amOctober 2024 3:21pm Fluticasone Propionate 50 mcg/actuation spray,dkpkkdsdxmLqsdclvetngb9FRIWR IHYMLFWNLIZfpjb007Pmngdmjq 2023 10:04amApril 2024 9:09amAtenolol 100 mg rdavcmCkbfbkdalytp323YYXSVbrmi043Meamindr 2023 10:05amOctober 2024 3:21pm Relevant Diagnostic Tests and/or Laboratory Data Laboratory Results Test Collection Date/Time Result Date/Time Result Interpretation Reference Range Result Comment Performing Site Ferritin October 04, 2025 12:39pm October 04, 2025 12:39pm 80.0 ng/mL 26.0-388.0Iron SaturationOctober 04, 2025 12:[facility]pm[facility] 12:39pm 25.6 %C-Reactive Protein, QuantitativeOctober 04, 2025 12:39pmCritical [facility]2024 12:39pm<0.50 mg/dL<=0.50Lactate DehydrogenaseOctober 04, 2025 12:39pm October 04, 2025 12:47af567 U/S29-339Llhrw GapOctober 04, 2025 12:39pm October 04, 2025 12:39pm13.3Basophils # (Auto)October 04, 2025 12:39pm October 04, 2025 12:39pm0.1 10 3/uL0.0-0.1Erythrocyte Sedimentation Rate October 04, 2025 12:39pmNov, 2024 12:39pm9 mm/hr<=20Iron Level October 04, 2025 12:39pmNov2024 12:39pm83.0 ug/dL65.0-175.0 Albumin/Globulin RatioNove2024 12:39pmNov, 2024 12:39pm1.2 Basophils (%) (Auto)October 04, 2025 12:39pmNov, 2024 12:39pm0.8 % 0.2-2.0Total Iron Binding CapacityOctober 04, 2025 12:39pmNov, 2024 12:95mf768.0 ug/dL250.0-450.0AlbuminOctober 04, 2025 12:39pmNov, 2024 12:39pm3.8 g/dL3.4-5.0Eosinophils # (Auto)October 04, 2025 12:39pm October 04, 2025 12:39pm0.2 10 3/uL0.0-0.7Alkaline PhosphataseOctober 04, 2025 12:39pmOctober 04, 2025 12:39pm72 U/R47-649Faxpxypmpap (%) (Auto) October 04, 2025 12:39pmOctober 04, 2025 12:39pm2.6 %0.9-7.0Alanine Aminotransferase (ALT/SGPT)October 04, 2025 12:39pmOctober 04, 2025 12:39pm38 U/H52-75GkidqkrfihPprmvlkw 25th, 2025 12:39pmOctober 04, 2024 12:39pm37.3 %Below low vqfatr25.0-54.0Aspartate Amino Transf (AST/SGOT)October 04, 2025 12:39pmNov2024 12:39pm20 U/C83-85MxjkrzdtfgLaylxgcj 25th, 2025 12:39pmOctober 04, 2024 12:39pm12.7 g/dLBelow low ewqcof18.0-18.0 BUN/Creatinine RatioNove2024 12:39pmNov, 2024 12:39pm27.0 Immature Granulocyte # (Auto)October 04, 2025 12:39pmNov2024 12:39pm0.02 10 3/uL0.00-0.03Blood Urea NitrogenNov2024 12:39pm October 04, 2025 12:39pm24.0 mg/dLAbove high normal7.0-18.0Immature Granulocyte % (Auto)October 04, 2025 12:39pmOctober 04, 2025 12:39pm0.3 % 0.0-0.5Calcium LevelNov2024 12:39pmNov2024 12:39pm8.8 mg/dL8.5-10.1Lymphocytes # (Auto)October 04, 2025 12:39pmNov2024 12:39pm1.4 10 3/uL1.2-3.8Chloride LevelNov2024 12:39pmOctober 04, 2025 12:14yz338 mmol/U14-153Rdemoyriojv (%) (Auto)October 04, 2025 12:39pm October 04, 2025 12:39pm18.9 %Below low bljjui46.5-60.0Carbon Dioxide Level October 04, 2025 12:39pmOctober 04, 2025 12:39pm27.1 mmol/L21.0-32.0Mean Corpuscular HemoglobinOctober 04, 2025 12:39pmOctober 04, 2025 12:39pm31.1 pg25.9-34.0CreatinineNov2024 12:39pmOctober 04, 2025 12:39pm0.89 mg/dL0.70-1.30Mean Corpuscular Hemoglobin ConcentNov2024 12:39pm October 04, 2025 12:39pm34.0 g/dL29.9-35.2Estimated GFR () October 04, 2025 12:39pmOctober 04, 2025 12:39pm>60>=60 mL/min/1.73m 2Mean Corpuscular VolumeNov2024 12:39pmOctober 04, 2025 12:39pm91.2 fL 80.0-94.0Estimated GFR (Non- AmericanNov2024 12:39pmNov2024 12:39pm>60>=60 mL/min/1.73m 2Monocytes # (Auto)October 04, 2025 12:39pmNov, 2024 12:39pm0.5 10 3/uL0.3-0.8GlobulinOctober 04, 2025 12:39pmNov, 2024 12:39pm3.2 g/dLMonocytes (%) (Auto)October 04, 2025 12:39pmNov, 2024 12:39pm6.3 %1.7-12.0Glucose LevelNov2024 12:39pmOctober 04, 2024 12:85mc809 mg/dLAbove high -916Joza Platelet VolumeOctober 04, 2025 12:39pmNov, 2024 12:39pm9.2 fLBelow low normal9.5-13.5Potassium LevelOctober 04, 2025 12:39pmOctober 04, 2025 12:39pm4.4 mmol/L3.5-5.1Neutrophils # (Auto)October 04, 2025 12:39pmNov2024 12:39pm5.4 10 3/uL1.4-6.5Sodium LevelOctober 04, 2025 12:39pm October 04, 2025 12:21dt326 mmol/J345-620Pbkwryjhugn (%) (Auto)October 04, 2025 12:39pmOctober 04, 2025 12:39pm71.1 %43.0-75.0Total BilirubinOctober 04, 2025 12:39pmNov, 2024 12:39pm0.5 mg/dL0.2-1.0Platelet Count October 04, 2025 12:39pmOctober 04, 2025 12:42fb518 10 3/iJ959-603Pwdhz ProteinOctober 04, 2025 12:39pmNov, 2024 12:39pm7.0 g/dL6.4-8.2Red Blood CountOctober 04, 2025 12:39pmOctober 04, 2024 12:39pm4.09 10 6/uL Below low normal4.70-6.10Red Cell Distribution WidthOctober 04, 2025 12:39pm October 04, 2025 12:39pm11.8 %11.0-15.0Corrected White Blood CountOctober 04, 2025 12:39pmOctober 04, 2025 12:39pm7.6 10 3/uL4.0-11.0 Vital Signs Vital Reading Result Reference Range Collection Date/Time Height 69.5 [in_i] October 24, 2025 9:35wdHeinjp95.94 kgce2024 9:18amHeart Rate56 /zlt42-471Riliwlhu 15th, 2025 9:30amBP Xfyvmnio280 mm[Hg]100-140ce2024 9:30amBP Dakyseklt07 mm[Hg]60-100Dece2024 9:30amBMI (Body Mass Index)29.2 kg/s3Emnqlfpn2024 9:18am Advance Directives Advance Directive Response Recorded Date/ Time Advance Directives No December 01, 2023 5:23pm Insurance Providers Guarantor Hansel Caraballo Address [address] [place], [place] [address]Contact Info.Home Phone: Payer Group Member ID Coverage Type Subscriber Relationship to Subscriber Effective Date Expiration Date Medicare [id number] L Rashmi Id: [id number] [address] [place] [address] Home Phone: Email: [email or web address] [address] [facility] [address] Work Phone: [phone] L Barnhart Id: [id number] [address] [place] [address] Home Phone: Email: [email or web address] Encounters Encounter Location(s) Arrival/Admit Date Discharge/Departure Date Discharge/Departure Disposition Provider(s) Non-patient / Non-visit -[facility] Hina Magallon October 04, 2025 12:39pm KAMALJIT Cooneyeparted Physician/[facility] 2024 10:10amDischarged to home care or self care (routine discharge)Sandra Archer MD Recent Diagnosis Onset Date Admit Date Bilateral primary osteoarthritis of knee Unknown October 24, 2025 9:15am Assessments Diagnosis Onset Date Resolution Status Admit Date Bilateral primary osteoarthritis of knee acuteDece2024 9:15am Plan of Treatment Future Tests Future scheduled test information is unavailable Pending Tests Pending diagnostic test information is unavailable Future Visits Future appointment information is unavailable Future Procedures Procedure Name Ordered Date Scheduled Date Disability Placard October 24, 2025 9:48am Future Medications Future medication information is unavailable Patient Instructions Patient instructions are unavailable
--- OUTSIDE RECORDS SUMMARY | 2025-10-26 10:08 | XMS_ITS | Clinical Summary ---
Author Organization [facility] Address [address] [place] [address] Care Team Providers Care Medical Clerical Assistant Name Role Phone Sandra Archer MD Primary Care Provider [phone] Allergies Active AllergyReactionsCriticalityNoted DateCommentsPollen ExtractMedium 12/08/2018 HAYFEVER [...] Blood Gluc Sensor (FreeStyle Michael 2 Sensor) [facility] [place] USE DHTRXFWP50/08/2023ctive glipiZIDE (Glucotrol) 5 MG tablet Take 5 [...] g 11112/31/2022ctive Active Problems ProblemNoted DateDiagnosed DateBilateral pohnfxpe30/01/2023Essential (primary) /31/2023History of zitavcds05/31/2023Sensorineural hearing loss (SNHL), zzfawegiz18/31/2023Mixed zrammixrkxkfno25/31/2023Other atopic dermatitis 09/09/2023Sleep apnea09/09/2023Type 2 diabetes mellitus with hyperglycemia, without long-term current use of ulryaew8109/09/2023Retinal detachment with single break, left eye12/09/2018 Immunizations ImmunizationAdministration DatesNext DuePfizer Purple Cap SARS-CoV-2 Vaccination 05/30/2021,05/03/2021Tdap03/04/2023 Family History Medical HistoryRelationNameCommentsDiabetesBrother 1DiabetesBrother 2David BarnhartDiabetesFatherHubart barnhartDiabetesMotherRoseMary barnhartMelanomaNeg HxRelationNameStatusCommentsBrother 1Brother 2David BarnhartFatherHubart barnhartMotherRoseMary river Social History Tobacco UseTypesPacks/DayYears UsedDateSmoking Tobacco: ZipmpsDufnyelvlt788.5 04/10/1966 - 10/16/1987Smokeless Tobacco: Never Tobacco Cessation:Counseling [...] Last Filed Vital Signs Vital SignReadingTime TakenCommentsBlood Njfgrkcs422/8409/10/2023 1:58 PM EDT Pulse--Temperature--Respiratory Rate--Oxygen Saturation--Inhaled Oxygen Concentration--Crfhyx88.1 kg (203 lb)09/10/2023 1:58 PM UEBZuoztx061.1 cm (5' 10.5 )09/10/2023 1:58 PM EDTBody Mass Index28.7209/10/2023 1:58 PM EDT Plan of Treatment DateTypeDepartmentCare Team (Latest Contact Info)Phyjqxmqhto08/18/2025 3:35 PM ESTOffice Visit [facility] [address] [place] [phone] Natalee Samaniego MD [address] [place] [address] [place] [address] Care Teams Team MemberRelationshipSpecialtyStart DateEnd Date Sandra Archer MD [address] [place] [id number] PCP - GeneralFamily Medicine06/27/23
--- OUTSIDE RECORDS SUMMARY | 2025-10-26 10:09 | XMS_ITS | Patient Health Record ---
Author Organization [facility] Address [address] [place] [address] Care Team Providers Care Tobacco Hanger Name Role Phone Urban Todd Unavailable [phone] Jayjay Cruz Unavailable [phone] Mariam Doty Unavailable [phone] Allergies No Known Allergies Results Component Value Reference Range Notes SCC- KNEE 4 VIEW LEFT-[id number] Reviewed date:01/27/2025 01:26:48 PM Interpretation: Performing Lab: Notes/Report: SCC- KNEE 4 VIEW RIGHT [id number] Reviewed date:01/27/2025 01:26:59 PM Interpretation: Performing Lab: [...] Status Risk Notes Problem Osteoarthritis of knee (10782394 7) Bilateral primary osteoarthritis of knee (M17.0) Activeconfirmed Vital Signs Height 5'10 in 12/27/2024 Sbrnsv003 lbs5BMI29.41012/27/2024 Encounters Encounter Location Date Provider Diagnosis [facility] Office [address] [place] [address] [address] [place] [address] 12/27/2024 [place] [facility] in [facility] [...] Date Coverage End Date [place] [address] [place] [address] [id number] Yahaira GRACE - patient is the insuredHenry [facility] [employer] Insurance CompanyPO [address] [place] [id number], CHARLESSelf - patient is the insured Medical (General) History Medical History History ICD Code Cancer: Yes Cancer Type: SkinCPAP: YesCPAP Machine:: YesDiabetes: YesDiabetes, type II: Yes High Blood Pressure: YesKidney stones: YesSleep apnea: Yes
--- OUTSIDE RECORDS SUMMARY | 2025-10-26 10:09 | XMS_ITS | Patient Health Record ---
Author Organization [facility] in [place] Address [address] [place] [address] Care Team Providers Care Automation Test Developer Name Role Phone Sandra Archer MD Primary Care Provider Unavailab Precious Newmanorva Unavailable [phone] SMITH NYA Unavailable [phone] Results Component Value Reference Range Notes CBC AUTO DIFF (Not yet revie wed by provider) Interpretation: Performing Lab: Notes/Report: [facility] , White Blood Count 6.8 4.0-11.0 10 3/uL Red Blood Count4.114.70-6.10 10 6/sVTdnzzigbie52.614.0-18.0 g/nGAaazehxubw02.6 42.0-54.0 %Mean Corpuscular Ucjmfu68.580.0-94.0 fLMean Corpuscular Hemoglobin 30.725.9-34.0 pgMean Corpuscular HGB Conc33.529.9-35.2 g/dLRed Cell Distribution Width12.411.0-15.0 %Platelet Cgklh828790-520 10 3/uLMean Platelet Volume9.29.5- 13.5 fLNeutrophils Percent Auto67.743.0-75.0 %Lymphocytes Percent Auto22.020.5- 60.0 %Monocytes Percent Auto6.71.7-12.0 %Eosinophils Percent Auto2.70.9-7.0 % Basophils Percent Auto0.60.2-2.0 %Immature Granulocytes Pct Auto0.30.0-0.5 % Neutrophils Absolute Auto4.61.4-6.5 10 3/uLLymphocytes Absolute Auto1.51.2-3.8 10 3/uLMonocytes Absolute Auto0.50.3-0.8 10 3/uLEosinophils Absolute Auto0.20.0- 0.7 10 3/uLBasophils Absolute Auto0.00.0-0.1 10 3/uLImmature Granulocytes Abs Auto0.020.00-0.03 10 3/uLPerforming Lab:see noteML - [facility] LBCRP (Not yet reviewed by provider) Interpretation: Performing Lab: Notes/Report: [facility] ,C Reactive Protein<0.50<=0.50 mg/dLPerforming Lab:see note - [facility] LBFERRITIN (Not yet reviewed by provider) Interpretation: Performing Lab: Notes/Report: [facility] ,Fghcmdcp53.026.0-388.0 ng/mLPerforming Lab:see noteML - [facility] LBLDH (Not yet reviewed by provider) Interpretation: Performing Lab: Notes/Report: [facility] ,Lactate Pmvkaezbjtnsz01868-198 U/LPerforming Lab:see note - [facility] LBPROF CHEM 8 (BAS METB) (Not yet reviewed by provider) Interpretation: Performing Lab: Notes/Report: [facility] ,Nsdtfo090616-084 mmol/LPotassium4.33.5-5.1 mmol/VUkbmezee29691-048 mmol/LCarbon Suxmzlw71.721.0-32.0 mmol/LAnion Gap15.0Yencltg09322-028 mg/dLBlood Urea Wqfzlzdr13.07.0-18.0 mg/dLCreatinine0.930.70-1.30 mg/dLEstimated GFR ( Yudith>60>=60 mL/min/1.73m 2Estimated GFR (Non- Nicolasa>60>=60 mL/min/1.73m 2BUN Creatinine Ratio25.8Avqcvum7.78.5-10.1 mg/dLPerforming Lab:see note - [facility] LBErythrocyte Sedimentation Rate (Not yet reviewed by provider) Interpretation: Performing Lab: Notes/Report: [facility] ,Erythrocyte Sedimentation Rate5<=20 mm/hrPerforming Lab:see noteML - [facility] LBReticulocyte Pct Auto (Not yet reviewed by provider) Interpretation: Performing Lab: Notes/Report: [facility] ,Reticulocyte Pct Auto0.940.60-3.10 %Performing Lab:see note - [facility] LBVitamin B12 (Not yet reviewed by provider) Interpretation: Performing Lab: Notes/Report: [facility] ,Vitamin I80795510-7837 pg/mL Performed at: [address] [id number] Irrigation System Installer: Owen Machado PhD, Phone: [phone] Performing Lab:see noteLC - [facility] LBIFE, PE and FLC, Serum (Not yet reviewed by provider) Interpretation: Performing Lab: Notes/Report: [facility] ,Immunoglobulin G, Qn, Lwbap602208-5768 mg/dLImmunoglobulin A, Qn, Qirkg88745- 437 mg/dLImmunoglobulin M, Qn, Fppfx7991-463 mg/dLProtein, Total6.76.0-8.5 g/dL Albumin4.02.9-4.4 g/qFKvzsj-8-Fbvebppk4.20.0-0.4 g/pDJjamo-5-Aztwcywh8.70.4-1.0 g/dLBeta Globulin1.00.7-1.3 g/dLGamma Globulin0.70.4-1.8 g/dLM-SpikeNot Observed Not Observed g/dLGlobulin, Total2.72.2-3.9 g/dLA/G Ratio1.50.7-1.7Immunofixation Result, SerumComment:. Presence of monoclonal protein is unclear at this time. Suggest repeat in 3 to 6 months if clinically indicated. Please note:Comment. Protein electrophoresis scan will follow via computer, mail, or firearms inspector delivery. Free [place] Lt Chains,S15.33.3-19.4 mg/LFree Lambda Lt Chains,S11.75.7-26.3 mg/L [place]/Lambda Ratio,S1.310.26-1.65 Performed at: [address] [id number] Irrigation System Installer: Owen Machado PhD, Phone: [phone] Performing Lab:see noteLC - [facility] LBIRON AND TIBC (Not yet reviewed by provider) Interpretation: Performing Lab: Notes/Report: [facility] ,Kvum926.065.0-175.0 ug/dLTotal Iron Binding Neaxphqs300.0250.0-450.0 ug/dL Percent Iron Xleowabyoc13.8Performing Lab:see noteML - [facility] LB Reason For Referral No Information Encounters Encounter Location Date Provider Diagnosis [facility] [address] [place] [address] 04/19/2025 Nya Desireela [facility] [address] [place] [address]/01/2025 Nyaabraham Ewing Plan Of Treatment Pending Test Test Name Order Date CBC AUTO DIFF 04/19/2025 CRP 04/19/2025 FERRITIN 04/19/2025 IRON AND TIBC 04/19/2025 LDH 04/19/2025 PROF CHEM 8 (BAS METB) 04/19/2025 Erythrocyte Sedimentation Rate ALCON, PE and FLC, Serum 04/19/2025 Reticulocyte Pct Auto 04/19/2025 Vitamin B12 04/19/2025 Insurance Providers Payer Name Payer Address Payer Phone Subscriber Number Group Number Insured Name Patient Relationship to Insured Coverage Start Date Coverage End Date [employer] [address] [place] [address] [place] [address] [id number] scott - patient is the insured[place] [id number], CharlesSelf - patient is the insured
--- OUTSIDE RECORDS SUMMARY | 2025-10-26 10:09 | XMS_ITS | Clinical Summary ---
Author Organization [facility] Address [address] [place] [address], [address] [place] [address] Care Team Providers Care Steeler Name Role Phone Amalia Hall MD Primary [...] Last Filed Vital Signs Vital SignReadingTime TakenCommentsBlood Wwjmqdqh829/72012/09/2018 10:47 AM EST Ujbea052512/09/2018 10:47 AM VKJPqpgsmhrcsm73.6 ??C (97.9 ??F)12/09/2018 10:47 AM ESTRespiratory Oqab085712/09/2018 10:47 AM ESTOxygen Oirfynaubl11%12/09/2018 10:47 AM ESTInhaled Oxygen Concentration--Yqeujr58.5 kg (215 lb)12/09/2018 7:34 AM EST Zgwdis233.8 cm (5' 10 )12/09/2018 7:34 AM ESTBody Mass Index30.85012/09/2018 7:34 AM EST Plan of Treatment Not on file Insurance Care Teams Team MemberRelationshipSpecialtyStart DateEnd Date Amalia Hall MD PCP - General12/07/18
--- NOTE | 2025-10-26 10:12 | CT_ITS ---
The [address] [address] Patient Name: ROXANE GRACE MRN: [id number] date: 1950 Sex: M Assigned Patient Location: CT Current Patient Location: CT Accession/Order Number: [id number] Exam Date: 10/26/2025 10:18 Report Date: 10/26/2025 10:56 At the request of: MELQUIADES MTZ MD Procedure: CT lung screening low-dose LOW-DOSE SCREENING CHEST CT WITHOUT CONTRAST COMPARISON: None CLINICAL DATA: Former smoker for approximately 30 years Spiral axial unenhanced low-dose images were obtained through the chest. Images were reviewed using both narrow and wide window settings. This CT exam was performed using one or more following dose reduction techniques: Automated exposure control, adjustment of the mA and/or kV according to patient size, or use of iterative reconstruction technique. The heart is normal size. No pericardial effusion is seen. Coronary artery disease is noted. The ascending aorta is ectatic measuring approximately 4 cm in diameter. There is plaque at the aorta and proximal great vessels. No enlarged lymph nodes are seen. There is dextroscoliotic curvature and moderate endplate spurring at the spine. Calcified pleural plaque is visualized bilaterally. No consolidation, pleural effusion or pneumothorax is noted. There is a 1 cm noncalcified right upper lobe nodule. There is a punctate nodule within the right middle lobe adjacent to the major fissure. There is also a plaque-like 6 mm nodular area within the right middle lobe abutting the minor fissure which is probably an intrapulmonary lymph node. At the left lower lobe on axial image 240, there is a tiny 3 mm nodule. Limited imaging through the upper abdomen shows no contributory findings. CT/CT lung screening low-dose IMPRESSION: Ectatic aorta. Calcified pleural plaque. This may be secondary to asbestos exposure. Correlation is recommended. Pulmonary nodularity measuring up to 1 cm at the right upper lobe. Lung RADS category 4A [address] follow-up is suggested. The dominant nodule may be at the threshold of diagnostic PET imaging based on size. Impression dictated by: Gilma Morales M.D. 10/26/2025 10:56 AM Dictation Location: [facility] Electronically authenticated by: [id number] Y Date: 10/26/2025 10:56
== END 2025-10-26 10:05 | disposition home or self-care (01) ==
LOC: CT 10:05
PROVIDERS: PCP Family Medicine; Visit Provider Internal Medicine Hematology & Oncology
DX: D64.9 Anemia, unspecified (principal); Z87.891 Personal history of nicotine dependence; I77.819 Aortic ectasia, unspecified site; R91.1 Solitary pulmonary nodule
CPT/HCPCS: 71271